=== PATIENT | male | born 1995 | race Caucasian/White ===

== ENCOUNTER 2016-07-29 23:53 | Emergency (ER) | payer BC, OTHER ==
[~2016-07-29] VITALS: Ht 172.7 cm; Wt 89.3 kg
[~2016-07-29 23:53] MED LIST: DEXT5LIQ23 PO; NYQUIL; PSEU120T2
[2016-07-29 23:58] VITALS: TEMP 36.8; Ht 172.7 cm; Wt 89.3 kg
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
[2016-07-30 01:44] VITALS: BP 157/81; PULSE 56; O2SAT 97
[2016-07-30] MEDS ORDERED: PERCOCET HOME PACK PO ONE (01:45)
--- NOTE | 2016-07-30 08:51 | DIAGNOSTIC IMAGING REPORT ---
LEFT HAND 3 VIEWS CLINICAL HISTORY: Left hand pain and swelling, greatest in the fourth finger. FINDINGS: 3 views of left hand are obtained. No prior studies are available for comparison at the time of dictation. The skeletal structures are well mineralized. There is a subtle fracture at the base of the fourth middle phalanx. No additional acute Fracture is seen. Mild irregularity of the fifth metacarpal may be related to remote trauma. Negative ulnar variance is observed. The joint spaces of the hand are preserved. Soft tissue swelling is noted in the fourth finger. IMPRESSION: 1. There is a subtle avulsion fracture at the base of the fourth middle phalanx with overlying soft tissue edema. 2. No additional fracture is seen. Electronically signed by: Art Santiago M.D. 07/30/2016 8:50 AM Dictated Date/Time: 07/30/2016 8:48 AM
== END 2016-07-30 02:02 | disposition home or self-care (01) ==
LOC: C.EDB 23:54
DX: S62.655A Nondisplaced fracture of middle phalanx of left ring finger, initial encounter for closed fracture (principal); V47.5XXA Car driver injured in collision with fixed or stationary object in traffic accident, initial encounter; Z82.49 Family history of ischemic heart disease and other diseases of the circulatory system

== ENCOUNTER 2017-03-19 20:49 | Emergency (ER) | payer SELFPAY ==
[~2017-03-19] VITALS: Ht 170.2 cm; Wt 71.0 kg
[2017-03-19 20:51] VITALS: TEMP 36.6; Ht 170.2 cm; Wt 71.0 kg
[2017-03-19] MEDS ORDERED: LORAZEPAM 1 MG TAB SL STA (21:17)
--- NOTE | 2017-03-19 21:20 | EMERGENCY ROOM VISIT NOTE ---
History Report prepared by Scribe: Coni Hernandez Under the Supervision of: Dr. Darrel Arriaga D.O. First contact with patient: 21:02 Chief Complaint: ANXIETY Stated Complaint: PAIN IN CHEST AND LEFT PALM,ANXIETY ATTACKS History of Present Illness The patient is a 21 year old male who presents to the Emergency Room with complaints of worsening anxiety for the past weeks. He admits to a history of depression. He states he has "asked for help" in the past from his parents, but has never received support from his family. He states he has recently been having thoughts "that I don't want to have" and "they keep poking at me". The patient denies ever being admitted to a hospital for psychiatric reasons in the past. He believes he was treated for ADHD in the past, but states his Mother took him off his ADD medications because "she didn't like how I acted on them". The patient reports he sometimes feels like "there is somebody else" in his body. He admits he has experienced auditory hallucinations in the past. He states yesterday he experienced a panic attack and took a friend's Klonopin tablet, which did provided relief for his anxiety. He denies any alcohol use in the past 24 hours. He denies any recent fevers. 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 A total of 10 systems reviewed and were otherwise negative. Past Medical & Surgical Medical Problems: (1) No Known Active Medical Problems Family History Heart disease Hypertension Social History Smoking Status: Current Some Day Smoker Alcohol Use: none Drug Use: none Marital Status: single Housing Status: lives with roommate Occupation Status: employed, student Current/Historical Medications No Active Prescriptions or Reported Meds Allergies Uncoded Allergies: BANANAS (Allergy, Intermediate, " ITCHY THROAT", 03/19/17) Physical Exam Vital Signs Date Time Temp Pulse Resp B/P (MAP) Pulse Ox O2 Delivery O2 Flow Rate FiO2 03/19/17 23:23 80 20 129/68 97 03/19/17 20:51 36.6 104 18 162/96 100 Room Air Physical Exam GENERAL: Patient is awake, alert, appeared very guarded and anxious. EYES: The conjunctivae are clear. The pupils are dilated and reactive to light bilaterally. EARS, NOSE, MOUTH AND THROAT: The nose is without any evidence of any deformity. Mucous membranes are moist tongue is midline NECK: The neck is nontender and supple. RESPIRATORY: Normal respiratory effort is noted there is no evidence of wheezing rhonchi or rales CARDIOVASCULAR: Heart sounds are tachycardic but regular. No definite murmur noted to auscultation. GASTROINTESTINAL: The abdomen is soft. Bowel sounds are present in all quadrants. Abdomen is nontender MUSCULOSKELETAL/EXTREMITIES: There is no evidence of gross deformity full range of motion is noted in the hips and shoulders SKIN: There is no obvious evidence of any rash. There are no petechiae, pallor or cyanosis noted. NEUROLOGIC: Patient is awake alert and oriented x3 strength is symmetric patellar reflexes are 2+ bilaterally PSYCHIATRIC: Patient was very anxious and guarded appearing. He is currently denying any suicidal ideation. He makes poor eye contact and thought process is tangential. Medical Decision & Procedures Laboratory Results 03/19/17 21:23 Red Blood Count 4.85, Mean Corpuscular Volume 85.2, Mean Corpuscular Hemoglobin 30.5, Mean Corpuscular Hemoglobin Concent 35.8, Mean Platelet Volume 10.6 03/19/17 21:23 Test 03/19/17 21:20 03/19/17 21:23 Urine Color YELLOW Urine Appearance CLEAR (CLEAR) Urine pH 6.5 (4.5-7.5) Urine Specific [place] 1.011 (1.000-1.030) Urine Protein NEG (NEG) Urine Glucose (UA) NEG (NEG) Urine Ketones NEG (NEG) Urine Occult Blood NEG (NEG) Urine Nitrite NEG (NEG) Urine Bilirubin NEG (NEG) Urine Urobilinogen NEG (NEG) Urine Leukocyte Esterase NEG (NEG) Urine Opiates Screen NEG (NEG) Urine Methadone, Qualitative NEG (NEG) Urine Barbiturates NEG (NEG) Urine Phencyclidine (PCP) Level NEG (NEG) Ur Amphetamine/Methamphetamine NEG (NEG) MDMA (Ecstasy) Screen NEG (NEG) Urine Benzodiazepines Screen NEG (NEG) Urine Cocaine Metabolite NEG (NEG) Urine Marijuana (THC) POS (NEG) White Blood Count 10.13 K/uL (4.8-10.8) Red Blood Count 4.85 M/uL (4.7-6.1) Hemoglobin 14.8 g/dL (14.0-18.0) Hematocrit 41.3 % (42-52) Mean Corpuscular Volume 85.2 fL (80-100) Mean Corpuscular Hemoglobin 30.5 pg (25-34) Mean Corpuscular Hemoglobin Concent 35.8 g/dl (32-36) Platelet Count 218 K/uL (130-400) Mean Platelet Volume 10.6 fL (7.4-10.4) RDW Standard Deviation 41.9 fL (36.4-46.3) RDW Coefficient of Variation 13.5 % (11.5-14.5) Neutrophils % (Manual) 39.2 % Lymphocytes % (Manual) 33.6 % Monocytes % (Manual) 3.6 % Eosinophils % (Manual) 0.9 % Basophils % (Manual) 0.9 % (0-2) Neutrophils # (Manual) 3.97 K/uL (1.4-6.5) Total Absolute Neutrophils 3.97 K/uL (1.4-6.5) Lymphocytes # (Manual) 3.40 K/uL (1.2-3.4) Total Absolute Lymphocytes 5.61 K/uL (1.2-3.4) Monocytes # (Manual) 0.36 K/uL (0.11-0.59) Eosinophils # (Manual) 0.09 K/uL (0-0.5) Basophils # (Manual) 0.09 K/uL (0-0.2) Percent Large Granular Lymphocytes 21.8 % Absolute Large Granular Lymphocytes 2.21 K/uL Anion Gap 10.0 mmol/L (3-11) Est Creatinine Clear Calc Drug Dose 107.0 ml/min Estimated GFR () 120.6 Estimated GFR (Non- 104.1 BUN/Creatinine Ratio 13.0 (10-20) Calcium Level 9.5 mg/dl (8.5-10.1) Total Bilirubin 0.4 mg/dl (0.2-1) Direct Bilirubin < 0.1 mg/dl (0-0.2) Aspartate Amino Transf (AST/SGOT) 10 U/L (15-37) Alanine Aminotransferase (ALT/SGPT) 26 U/L (12-78) Alkaline Phosphatase 70 U/L (45-117) Total Protein 8.1 gm/dl (6.4-8.2) Albumin 4.5 gm/dl (3.4-5.0) Thyroid Stimulating Hormone (TSH) 1.400 uIu/ml (0.300-4.500) Ethyl Alcohol mg/dL < 3.0 mg/dl (0-3) Laboratory results per my review. Medications Administered Medications (Trade) Dose Ordered Sig/Braxton Route Start Time Stop Time Status Last Admin Dose Admin Lorazepam (Ativan Tab) 1 mg NOW STAT SL 03/19/17 21:17 03/19/17 21:18 DC 03/19/17 21:32 1 MG ED Course 2107: The patient was evaluated in room A6. A complete history and physical examination were performed. 2116: Ativan 1 mg SL. 2214: I discussed the patients case with the ED Psychiatric Web Software Engineer. She does not believe the patient meets criteria to stay in the hospital. He states he feels safe to go home and does not have any current SI or HI. 0: I reevaluated the patient. I discussed his results and discharge instructions and he verbalized complete understanding and agreement. 2315: Ativan 1 mg 1 homepack PO. Medical Decision Prior records/ancillary studies reviewed. Triage Nursing notes reviewed. The patient's history was concerning for possible psychiatric disturbance. Differential diagnosis: Etiologies such as mood disorder, infection, hypoglycemia, electrolyte abnormalities, cardiac sources, intracerebral event, toxicologic, neurologic, as well as others were entertained. The patient is a 21-year-old male who presented to the emergency department for mental health evaluation. The patient appeared to have very significant anxiety. The patient did not have a history of anxiety but states he's had similar symptoms for approximately 6 months to 1 year. The patient was medically cleared in the emergency department. He did not have any suicidal or homicidal ideation. The patient was medically cleared and was felt to be able to contract for safety. Patient was requesting outpatient follow-up. He was evaluated by the mental health telehealth case manager. Outpatient follow-up was arranged. The patient was encouraged to keep his follow-up appointments. He was also encouraged to call crisis or return to the emergency department immediately if symptoms change worsen or the need arises. Medication Reconcilliation Current Medication List: was personally reviewed by me Blood Pressure Screening Patient's blood pressure: Elevated blood pressure Blood pressure disposition: Elevated BP felt to be situational Impression Primary Impression: Anxiety Scribe Attestation The scribe's documentation has been prepared under my direction and personally reviewed by me in its entirety. I confirm that the note above accurately reflects all work, treatment, procedures, and medical decision making performed by me. Departure Information Dispostion Home / Self-Care Prescriptions No Active Prescriptions or Reported Meds Referrals No Doctor, Assigned (PCP) Patient Instructions Anxiety Body Response, Anxiety Disorder, My [facility] Additional Instructions Follow-up with a therapist as scheduled. Call crisis or return to the emergency department immediately if symptoms change worsen or the need arises. You can try taking the Ativan 1/2 of a tablet as needed for anxiety.
[2017-03-19 21:52] LABS: HEMATOCRIT 41.3 % (42-52); HEMOGLOBIN 14.8 g/dL (14.0-18.0); MEAN CELL VOLUME 85.2 fL (80-100); MEAN CORPUSCULAR HEMOGLOBIN 30.5 pg (25-34); MEAN CORPUSCULAR HGB CONC 35.8 g/dl (32-36); MEAN PLATELET VOLUME 10.6 fL (7.4-10.4); PLATELET COUNT 218 K/uL (130-400); RED CELL DISTRIBUTION WIDTH CV 13.5 % (11.5-14.5); RED CELL DISTRIBUTION WIDTH SD 41.9 fL (36.4-46.3); WHITE BLOOD COUNT 10.13 K/uL (4.8-10.8)
[2017-03-19 22:25] LABS: ALBUMIN 4.5 gm/dl (3.4-5.0); ALKALINE PHOSPHATASE 70 U/L (45-117); ALT/SGPT 26 U/L (12-78); BLOOD UREA NITROGEN 13 mg/dl (7-18); CALCIUM 9.5 mg/dl (8.5-10.1); CARBON DIOXIDE 23 mmol/L (21-32); CREATININE 1.03 mg/dl (0.60-1.40); GLUCOSE 93 mg/dl (70-99); TOTAL PROTEIN 8.1 gm/dl (6.4-8.2)
[2017-03-19 22:28] LABS: POTASSIUM 3.7 mmol/L (3.5-5.1); SODIUM 139 mmol/L (136-145)
[2017-03-19 22:33] LABS: AST/SGOT 10 U/L (15-37)
[2017-03-19] MEDS ORDERED: ATIVAN 1MG HOMEPACK PO ONE (23:15)
[2017-03-19 23:23] VITALS: BP 129/68; PULSE 80; O2SAT 97
== END 2017-03-19 23:24 | disposition home or self-care (01) ==
LOC: C.EDB 20:50 → C.EDA 23:24
DX: F41.9 Anxiety disorder, unspecified (principal); R07.9 Chest pain, unspecified; F17.200 Nicotine dependence, unspecified, uncomplicated

== ENCOUNTER 2017-04-05 22:24 | Inpatient (IN) | payer OTHER ==
[~2017-04-05] VITALS: Ht 170.2 cm; Wt 78.9 kg
[2017-04-05 23:48] LABS: BASO % 0.6 %; BASO ABS # 0.05 K/uL (0-0.2); EOS % 0.7 %; EOS ABS # 0.06 K/uL (0-0.5); HEMATOCRIT 41.2 % (42-52); HEMOGLOBIN 14.8 g/dL (14.0-18.0); IG# 0.02 K/uL (0.00-0.02); LYMPH % 42.5 %; LYMPH ABS # 3.69 K/uL (1.2-3.4); MEAN CELL VOLUME 85.1 fL (80-100); MEAN CORPUSCULAR HEMOGLOBIN 30.6 pg (25-34); MEAN CORPUSCULAR HGB CONC 35.9 g/dl (32-36); MEAN PLATELET VOLUME 9.7 fL (7.4-10.4); MONO % 6.1 %; MONO ABS # 0.53 K/uL (0.11-0.59); NEUT % 49.9 %; NEUT ABS # 4.34 K/uL (1.4-6.5); PLATELET COUNT 231 K/uL (130-400); RED CELL DISTRIBUTION WIDTH CV 13.2 % (11.5-14.5); RED CELL DISTRIBUTION WIDTH SD 40.8 fL (36.4-46.3); WHITE BLOOD COUNT 8.69 K/uL (4.8-10.8)
--- NOTE | 2017-04-06 00:04 | EMERGENCY ROOM VISIT NOTE ---
History Report prepared by Mehul: César Ragland Under the Supervision of: Dr. Veronica George M.D. First contact with patient: 23:10 Chief Complaint: MENTAL HEALTH EVALUATION Stated Complaint: PAIN IN BACK/CHEST AND LEFT THUMB, SHAKING History of Present Illness The patient is a 21 year old male who presents to the Emergency Room for a mental health evaluation due to worsening visual and auditory hallucinations today. The patient states that he has been seeing "a black thing with spiky teeth," and he states that he feels threatened by it. He states that he started seeing this thing at the beginning of the month, and he states that he hears voices, though they are not telling him anything specific. The patient states that he feels "brainwashed by society," and he states that he does not have motivation to do things anymore and feels like he is "analyzing things too much " now. The patient states that he feels worried about everything he does now. He states that in the past he has tried to hurt himself by cutting his hand with a razor blade. Additionally he states that he tried to overdose many years ago, though after seeing his friends pass away he has not had anymore suicidal ideations. He reports that he smokes marijuana, though he does not smoke as much any more since this makes the hallucinations worse. He states that he also took a drug called 4-[id number]-DMT, and this is when all of his symptoms started. The patient additionally notes that he feels like he is shaking and sweating frequently. He feels anxious "all the time." The patient reports that he smoked marijuana earlier today, and this is what "triggered it tonight." Source of History: patient Onset: today Position: other (global) Quality: other (hallucinations) Timing: worsening Note: Associated symptoms: Shaking and sweating Review of Systems See HPI for pertinent positives & negatives. A total of 10 systems reviewed and were otherwise negative. Past Medical & Surgical Medical Problems: (1) Cannabis abuse (2) Depression (3) Hallucinogen abuse (4) No significant medical problems (5) Polysubstance abuse (6) Psychosis Family History Heart disease Hypertension Social History Smoking Status: Current Every Day Smoker Alcohol Use: none Drug Use: none Marital Status: single Housing Status: lives with roommate Occupation Status: employed, student Current/Historical Medications No Active Prescriptions or Reported Meds Allergies Coded Allergies: Banana (Verified Allergy, Intermediate, ITCHY THROAT, 04/06/17) NO KNOWN DRUG ALLERGIES (Verified Allergy, Unknown, none, 04/05/17) Physical Exam Vital Signs Date Time Temp Pulse Resp B/P (MAP) Pulse Ox O2 Delivery O2 Flow Rate FiO2 04/06/17 01:19 36.6 59 20 158/85 99 Room Air 04/05/17 22:57 72 04/05/17 22:27 36.8 101 20 159/109 99 Room Air Physical Exam Vital signs reviewed. General: Well-appearing male, in no significant distress. HEENT: No scleral icterus, pupils are dilated and equal bilaterally, neck supple. Atraumatic. Cardiovascular: Regular rate and rhythm, no extra sounds. Pulmonary: Clear to auscultation bilaterally, normal work of breathing. Abdomen: Soft, nontender, nondistended, positive bowel sounds. Musculoskeletal: Atraumatic, no peripheral edema. Neurologic: Patient awake alert and oriented x 3, full strength in all 4 extremities. Cranial nerves 2 through 12 grossly intact. Skin: Warm, dry, no rash Psych: Anxious appearing. Positive passive SI. Negative HI. Positive auditory and visual hallucinations. Medical Decision & Procedures ER Provider Diagnostic Interpretation: Radiology results as stated below per my review and radiologist interpretation: CT HEAD: No evidence of acute intracranial abnormality. Laboratory Results 04/05/17 23:35 Red Blood Count 4.84, Mean Corpuscular Volume 85.1, Mean Corpuscular Hemoglobin 30.6, Mean Corpuscular Hemoglobin Concent 35.9, Mean Platelet Volume 9.7, Neutrophils (%) (Auto) 49.9, Lymphocytes (%) (Auto) 42.5, Monocytes (%) (Auto) 6.1, Eosinophils (%) (Auto) 0.7, Basophils (%) (Auto) 0.6, Neutrophils # (Auto) 4.34, Lymphocytes # (Auto) 3.69, Monocytes # (Auto) 0.53, Eosinophils # (Auto) 0.06, Basophils # (Auto) 0.05 04/05/17 23:35 Test 04/05/17 22:41 04/05/17 23:35 Urine Color YELLOW Urine Appearance CLEAR (CLEAR) Urine pH 5.0 (4.5-7.5) Urine Specific [place] 1.023 (1.000-1.030) Urine Protein NEG (NEG) Urine Glucose (UA) NEG (NEG) Urine Ketones TRACE (NEG) Urine Occult Blood NEG (NEG) Urine Nitrite NEG (NEG) Urine Bilirubin NEG (NEG) Urine Urobilinogen NEG (NEG) Urine Leukocyte Esterase NEG (NEG) Urine Opiates Screen NEG (NEG) Urine Methadone, Qualitative NEG (NEG) Urine Barbiturates NEG (NEG) Urine Phencyclidine (PCP) Level NEG (NEG) Ur Amphetamine/Methamphetamine NEG (NEG) MDMA (Ecstasy) Screen NEG (NEG) Urine Benzodiazepines Screen NEG (NEG) Urine Cocaine Metabolite NEG (NEG) Urine Marijuana (THC) POS (NEG) White Blood Count 8.69 K/uL (4.8-10.8) Red Blood Count 4.84 M/uL (4.7-6.1) Hemoglobin 14.8 g/dL (14.0-18.0) Hematocrit 41.2 % (42-52) Mean Corpuscular Volume 85.1 fL (80-100) Mean Corpuscular Hemoglobin 30.6 pg (25-34) Mean Corpuscular Hemoglobin Concent 35.9 g/dl (32-36) Platelet Count 231 K/uL (130-400) Mean Platelet Volume 9.7 fL (7.4-10.4) Neutrophils (%) (Auto) 49.9 % Lymphocytes (%) (Auto) 42.5 % Monocytes (%) (Auto) 6.1 % Eosinophils (%) (Auto) 0.7 % Basophils (%) (Auto) 0.6 % Neutrophils # (Auto) 4.34 K/uL (1.4-6.5) Lymphocytes # (Auto) 3.69 K/uL (1.2-3.4) Monocytes # (Auto) 0.53 K/uL (0.11-0.59) Eosinophils # (Auto) 0.06 K/uL (0-0.5) Basophils # (Auto) 0.05 K/uL (0-0.2) RDW Standard Deviation 40.8 fL (36.4-46.3) RDW Coefficient of Variation 13.2 % (11.5-14.5) Immature Granulocyte % (Auto) 0.2 % Immature Granulocyte # (Auto) 0.02 K/uL (0.00-0.02) Anion Gap 8.0 mmol/L (3-11) Est Creatinine Clear Calc Drug Dose 111.3 ml/min Estimated GFR () 126.5 Estimated GFR (Non- 109.2 BUN/Creatinine Ratio 11.3 (10-20) Calcium Level 9.1 mg/dl (8.5-10.1) Total Bilirubin 0.3 mg/dl (0.2-1) Direct Bilirubin < 0.1 mg/dl (0-0.2) Aspartate Amino Transf (AST/SGOT) 12 U/L (15-37) Alanine Aminotransferase (ALT/SGPT) 25 U/L (12-78) Alkaline Phosphatase 69 U/L (45-117) Total Protein 7.9 gm/dl (6.4-8.2) Albumin 4.3 gm/dl (3.4-5.0) Thyroid Stimulating Hormone (TSH) 1.440 uIu/ml (0.300-4.500) Salicylates Level < 1.7 mg/dl (2.8-20) Acetaminophen Level < 2 ug/ml (10-30) Ethyl Alcohol mg/dL < 3.0 mg/dl (0-3) Laboratory results per my review. Medications Administered Medications (Trade) Dose Ordered Sig/Braxton Route Start Time Stop Time Status Last Admin Dose Admin Hydroxyzine HCl (Vistaril Tab) 25 mg NOW STAT PO 04/06/17 00:19 04/06/17 00:20 DC 04/06/17 01:07 25 MG Potassium Chloride (Klor-Con M10) 40 meq NOW STAT PO 04/06/17 00:41 04/06/17 00:42 DC 04/06/17 01:07 40 MEQ Haloperidol (Haldol Tab) 5 mg NOW STAT PO 04/06/17 02:05 04/06/17 02:39 DC 04/06/17 02:30 5 MG ED Course 2310: Past medical records reviewed. The patient was evaluated in room A6. A complete history and physical examination was performed. 0019: Vistaril Tab 25mg PO 0041: Potassium Chloride 40meq PO 0117: The patient is willing to stay. 0205: Haldol 5mg PO 0333: I signed the patient's 201. He will be evaluated further. Medical Decision Differential diagnosis: Etiologies such as mood disorder, infection, hypoglycemia, electrolyte abnormalities, cardiac sources, intracerebral event, toxicologic, neurologic, as well as others were entertained. This patient was evaluated and appeared to be in no distress. Patient was medically cleared. He did require oral Vistaril 25 mg for anxiety. He was given 40 mEq of potassium for repletion. Case was discussed with 3 S. and the patient was accepted for voluntary inpatient treatment. Dr. Stratton has requested Haldol 5 mg by mouth which was administered. Medication Reconcilliation Current Medication List: was personally reviewed by me Blood Pressure Screening Patient's blood pressure: Elevated blood pressure Blood pressure disposition: Elevated BP felt to be situational Impression Primary Impression: Hallucinations Additional Impressions: Mood disorder Suicidal ideation Scribe Attestation The scribe's documentation has been prepared under my direction and personally reviewed by me in its entirety. I confirm that the note above accurately reflects all work, treatment, procedures, and medical decision making performed by me. Departure Information Dispostion Mental Health Acute Care Prescriptions No Active Prescriptions or Reported Meds Referrals No Doctor, Assigned (PCP) Patient Instructions My [facility] Problem Qualifiers
[2017-04-06 00:05] LABS: ALBUMIN 4.3 gm/dl (3.4-5.0); ALT/SGPT 25 U/L (12-78); AST/SGOT 12 U/L (15-37); BLOOD UREA NITROGEN 11 mg/dl (7-18); CALCIUM 9.1 mg/dl (8.5-10.1); CARBON DIOXIDE 24 mmol/L (21-32); CREATININE 0.99 mg/dl (0.60-1.40); GLUCOSE 94 mg/dl (70-99); POTASSIUM 3.3 mmol/L (3.5-5.1); SODIUM 138 mmol/L (136-145)
[2017-04-06 00:16] LABS: ALKALINE PHOSPHATASE 69 U/L (45-117); TOTAL PROTEIN 7.9 gm/dl (6.4-8.2)
[2017-04-06] MEDS ORDERED: hydrOXYzine HCL 25 MG TAB PO STA (00:19)
[2017-04-06] MEDS ORDERED: POTASSIUM CHLORIDE 10 MEQ TABCR PO STA (00:41)
[2017-04-06] MEDS ORDERED: HALOPERIDOL 5 MG TAB PO STA (02:05)
[2017-04-06] MEDS ORDERED: NURSING VERBAL MED ORDER ONE ×2 (03:15→20:30)
[2017-04-06 03:35] VITALS: O2SAT 99
[2017-04-06] MEDS ORDERED: BISMUTH SUBSALICYLATE PER ML OMNICELL CHARGE PO PRN (03:45)
[2017-04-06] MEDS ORDERED: hydrOXYzine HCL 25 MG TAB PO PRN (03:45)
[2017-04-06] MEDS ORDERED: ALUMINUM/MAGNESIUM SUSP 30 ML UDC PO PRN (03:45)
[2017-04-06] MEDS ORDERED: SODIUM CHLORIDE 0.65% NA SOLN 45 ML (OCEAN) PRN (03:45)
[2017-04-06] MEDS ORDERED: MAGNESIUM HYDROXIDE SUSP 30 ML UDC PO PRN (03:45)
[2017-04-06 06:02] VITALS: BP 150/75; PULSE 86; TEMP 36.8; Ht 170.2 cm; Wt 78.9 kg
--- NOTE | 2017-04-06 06:31 | DIAGNOSTIC IMAGING REPORT ---
CT HEAD WITHOUT CONTRAST (CT) CLINICAL HISTORY: Acute change in mental status COMPARISON STUDY: No previous studies for comparison. TECHNIQUE: Axial CT of the brain is performed from the vertex to the skull base. IV contrast was not administered for this examination. A dose lowering technique was utilized adhering to the principles of ALARA. CT DOSE: FINDINGS: No intra or extra-axial mass lesions are visualized. There is no CT evidence of acute cortical infarction. There is no evidence of midline shift. There is no acute hemorrhage. No calvarial fractures are visualized. There is no evidence of pathologic ventricular dilatation. There is no evidence of acute sinusitis IMPRESSION: Normal noncontrast head CT. Electronically signed by: Sathya Gonzalez M.D. 04/06/2017 6:30 AM Dictated Date/Time: 04/06/2017 6:29 AM
[2017-04-06] MEDS ORDERED: INFLUENZA ADMINISTRATION CHARGE ONE (06:45)
[2017-04-06] MEDS ORDERED: INFLUENZA VIRUS QUAD VACCINE 0.5 ML SYR IM. ONE (06:45)
[2017-04-06 07:06] VITALS: BP_SYST 108; BP_SYST 111; BP_DIAS 53; BP_DIAS 61; PULSE 41; PULSE 49; TEMP 36.3
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
[2017-04-06] MEDS ORDERED: SERTRALINE HCL 50 MG TAB PO ONE (12:08)
[2017-04-06] MEDS ORDERED: RISPERIDONE 0.5 MG TAB PO ONE (12:10)
[2017-04-06] MEDS ORDERED: RISPERIDONE 0.5 MG TAB PO PRN (12:15)
[2017-04-06] MEDS: HALOPERIDOL 5 MG TAB PO PRN (13:24)
[2017-04-06] MEDS ORDERED: NICOTINE 21 MG/24 HR TDSY TD SCH (21:00)
[2017-04-06] MEDS: RISPERIDONE 0.5 MG TAB PO SCH (21:16)
[2017-04-06 21:17] VITALS: BP 138/73; PULSE 67; TEMP 37.1
[2017-04-07 06:36] VITALS: BP_SYST 133; BP_SYST 149; BP_DIAS 79; BP_DIAS 84; PULSE 55; PULSE 72; TEMP 36.4
[2017-04-07] MEDS: SERTRALINE HCL 50 MG TAB PO SCH (09:23)
[2017-04-07] MEDS: RISPERIDONE 0.5 MG TAB PO SCH (09:24)
[2017-04-07 09:55] LABS: CALCIUM 9.4 mg/dl (8.5-10.1); CREATININE 1.19 mg/dl (0.60-1.40); POTASSIUM 4.4 mmol/L (3.5-5.1)
[2017-04-07] MEDS ORDERED: RISPERIDONE 0.5 MG TAB PO ONE (10:44)
--- NOTE | 2017-04-07 11:01 | Psychiatric Progress Notes ---
Progress Note Date of Service Apr 07, 2017. Interval History 21 y/o SWM with significant substance abuse, primarily cannabis and psychedelics , who has developed depression and persistent, severe psychosis in the past few months which is distressing and leading to suicidal thoughts and difficulty functioning. He is admitted voluntarily. Chief Complaint "I was getting anxious in there talking about this stuff.". Subjective Patient was seen & assessed interval progress reviewed with Treatment Team. The patient remains anxious today, and easily triggered to hallucinations. He continues to feel like the hallucinations, a mouth with teeth, is "all around me " saying he feels it more than he sees it. He is also struggling to keep his thoughts straight and says that he thinks he has found out "how this world works " as if he has been supplied with special information. He denies overt side effects to meds, but says that he wants to sleep a lot because its the only time he isn't bothered by the hallucinations, describing it as an escape. He feels as if "my reality has changed". We discussed reality testing his thoughts , staying grounded in what's real around him. He recognizes that these experiences are not real and likely brought on by his drug use. He denies aud hallucinations. Review of Systems Constitutional: No fever, No chills, No sweats, No weight loss, No weakness, No fatigue, No problem reported ENT: No hearing loss, No unusual epistaxis, No nasal symptoms, No sore throat, No tinnitus, No dental problems, No trouble swallowing, No problem reported Respiratory: No cough, No sputum, No wheezing, No shortness of breath, No dyspnea on exertion, No dyspnea at rest, No hemoptysis, No problem reported Cardiovascular: No chest pain, No orthopnea, No PND, No edema, No claudication , No palpitations, No problem reported Abdomen: No pain, No nausea, No vomiting, No diarrhea, No constipation, No GI bleeding, No problem reported Musculoskeletal: No joint pain, No muscle pain, No swelling, No calf pain, No problem reported Neurologic: No memory loss, No paralysis, No weakness, No numbness/tingling, No vertigo, No balance problems, No problem reported Psychiatric: + problem reported (visual hallucinations. ) Integumentary: No rash, No itch, No new/changing skin lesions, No color change , No bleeding, No problem reported Sleep Information Total Hours of Sleep: 6.25 Meal Information Percent of Breakfast Consumed: 100 Percent of Lunch Consumed: 100 Percent of Dinner Consumed: 90 Mental Status Exam During interview pt is: alert and oriented, cooperative (but a poor historian due to psychosis and disoragnization) Appearance: appropriately dressed (street clothes), disheveled (malodorous and unkempt) Eye contact is: good Motor behavior is: steady gait & station, no abnormal motor movements Speech: normal in rate, rhythm & volume Affect: blunted Mood is: depressed, anxious, other (fearful) Thought process: tangential, looseness of associations Thought content: paranoid, cognitive distortions, delusions, ideas of reference , other (thought blocking) Suicidal thought are: present Homicidal thoughts are: denied Hallucinations: auditory (thinks he hears people saying his name), visual Cognition: language grossly intact, other (memory and attention impaired ) Intelligence estimated to be: average Insight: impaired Judgement: impaired Impression Remains with visual hallucinations with much distress. Will increase Risperdal to 1 mg BID to help organize thinking and target hallucinations. Will need OP substance use treatment. Plan (1) Psychosis Differential includes substance-induced psychosis, psychotic mood disorder, organic cause, or primary thought disorder. Psychotic symptoms have been persistent for at least a month, but patient is a very poor historian and we will need to get collateral. His symptoms are severe, distressing, and warrant treatment with an antipsychotic. 04/06 - Start risperidone 0.5 mg twice a day for psychosis, and check fasting lipid profile and fasting glucose tomorrow for baseline on an atypical antipsychotic. Reviewed risks, benefits and side effects with patient and he agreed. Provided Up To Date Patient Handout on the medication. - Encourage group attendance and participation, provide reality testing, and educate the patient about his symptoms and diagnosis, and recommendations for treatment. - Schedule family meeting, and arrange aftercare. - Patient endorsed suicidal thoughts on admission, and grandmother indicated concerns about his access to guns. We will recommend he not have access to guns , substances he can abuse, or medications he could overdose on, and this will need to be reviewed in his family meeting as well as his safety plan. - Patient is on [facility] in [facility]. 04/07 - Increase Risperdal to 1 mg. BID - Reality orientation (2) Depression 04/06 - with anxiety. Discussed diagnosis and trial of an SSRI, which he agreed to. Provided an up-to-date patient handout on sertraline, and start 50 mg daily. 04/07 - Continue Zoloft 50 (3) Cannabis abuse 04/06 - hallucinogen/psychoactive substance abuse clearly contributing to psychotic symptoms. Brief intervention was offered and accepted Intervention was greater than 5 min in length. Brief interventions include: 1. Assess Readiness to Quit, 2. Advise: Help Patient to Reduce or Abstain from Alcohol, 3. Agree: Set Specific, Feasible Goals, 4. Assist: Anticipate barriers, Problem-Solving Solutions. Social work to 5. Arrange: Referrals to appropriate treatment. Summary of intervention: The patient is in precontemplation stage with regards to transtheoretical model of change. The patient is advised to decrease alcohol consumption due to depressant effects and risk of interactions with prescription medications. The patient agreed to cut back, and will be provided with recovery materials to continue to education self on how to cope with their condition without drinking. - Will recommend outpatient substance abuse treatment. (4) Hallucinogen abuse 04/06 - see above. (5) Polysubstance abuse Has abused opiates, cocaine, stimulants, etc. Would not recommend he be prescribed controlled substances due to the high risk of abuse/misuse/diversion/ negative outcomes. (6) Hypokalemia 04/06 - potassium was 3.3 on admission yesterday, will order a PRP for tomorrow to recheck. Monitor oral intake, and consider need for further repletion. Discharge / Aftercare Planning Therapist: Name: "I had counselors with a partial place in [place] for bullying" Writer Producer: Name: Doyle Visit Code E&M Code: 09035 Inventory Assets Strengths: Supportive family, has housing, willing for treatment Needs: Substance abuse treatment Risk Factors Assessment Male: Yes : Yes /single/: Yes Higher / Fall in social status: No Health problems: No Mental Health Diagnoses: Yes Substance use disorders: Yes Previous attempt: Yes Previous attempt; didn't tell: Yes Family history of suicide: No Previous psychiatric stay: No Hopelessness: No Smoker: Yes Protective Factors Assessment Mormonism beliefs: Yes : No Responsible for young children: No Employed: No Stable relationships: No Supportive family: Yes Good rapport with provider: No Data Vital Signs Last 24 Hrs: Date Time Temp Pulse Resp B/P (MAP) Pulse Ox O2 Delivery O2 Flow Rate FiO2 04/07/17 06:36 36.4 55 16 133/79 72 149/84 04/06/17 21:17 37.1 67 22 138/73 Meds Administered Last 24 Hrs: Meds Administered (Past 24Hrs) Medications (Trade) Dose Ordered Sig/Braxton Route Start Time Stop Time Status Last Admin Dose Admin Hydroxyzine HCl (Vistaril Tab) 25 mg NOW STAT PO 04/06/17 00:19 04/06/17 00:20 DC 04/06/17 01:07 25 MG Potassium Chloride (Klor-Con M10) 40 meq NOW STAT PO 04/06/17 00:41 04/06/17 00:42 DC 04/06/17 01:07 40 MEQ Haloperidol (Haldol Tab) 5 mg NOW STAT PO 04/06/17 02:05 04/06/17 02:39 DC 04/06/17 02:30 5 MG Haloperidol (Haldol Tab) 5 mg Q6H PRN PO 04/06/17 03:45 05/06/17 03:44 04/06/17 13:24 5 MG Risperidone (Risperdal Tab) 0.5 mg BID PO 04/06/17 22:00 05/06/17 21:59 04/07/17 09:24 0.5 MG Sertraline HCl (Zoloft Tab) 50 mg QAM PO 04/07/17 09:00 05/07/17 08:59 04/07/17 09:23 50 MG Sertraline HCl (Zoloft Tab) 50 mg 1208 ONCE PO 04/06/17 12:08 04/06/17 12:11 DC 04/06/17 12:47 50 MG Risperidone (Risperdal Tab) 0.5 mg 1210 ONCE PO 04/06/17 12:10 04/06/17 12:14 DC 04/06/17 12:47 0.5 MG Nicotine (Nicoderm Cq 21MG Patch) 1 patch Q24H TD 04/06/17 21:00 04/07/17 09:44 DC 04/06/17 20:57 1 PATCH Miscellaneous (Remove Nicoderm Patch) 1 ea Q24H N/A 04/07/17 20:59 04/07/17 20:59 DC 04/07/17 04:50 1 EA Lab Results Last 24 Hrs: Last 24 Hours Test 04/07/17 09:12 Sodium Level 139 mmol/L Potassium Level 4.4 mmol/L Chloride Level 106 mmol/L Carbon Dioxide Level 28 mmol/L Anion Gap 5.0 mmol/L Blood Urea Nitrogen 16 mg/dl Creatinine 1.19 mg/dl Est Creatinine Clear Calc Drug Dose 92.6 ml/min Estimated GFR () 101.3 Estimated GFR (Non- 87.4 BUN/Creatinine Ratio 13.5 Random Glucose 84 mg/dl Fasting Glucose 84 mg/dl Calcium Level 9.4 mg/dl Triglycerides Level 127 mg/dl Cholesterol Level 152 mg/dl HDL Cholesterol 43 mg/dl LDL Cholesterol, Calculated 84 mg/dl VLDL Cholesterol, Calculated 25 mg/dl Cholesterol/HDL Ratio 3.5 Problem Qualifiers (1) Psychosis: Psychosis type: unspecified psychosis type Qualified Codes: F29 - Unspecified psychosis not due to a substance or known physiological condition (2) Depression: Depression Type: major depressive disorder Major depression recurrence: recurrent Active/Remission status: currently active Major depression episode severity: moderate Qualified Codes: F33.1 - Major depressive disorder, recurrent, moderate
[2017-04-07] MEDS: NICOTINE 14 MG/24 HR TDSY TD SCH (11:03)
[2017-04-07] MEDS: ACETAMINOPHEN 325 MG TAB PO PRN (18:39)
[2017-04-07] MEDS: HALOPERIDOL 5 MG TAB PO PRN (19:41)
[2017-04-07] MEDS: RISPERIDONE 1 MG TAB PO SCH (21:26)
[2017-04-08 06:39] VITALS: BP_SYST 136; BP_SYST 147; BP_DIAS 92; BP_DIAS 93; PULSE 120; PULSE 95; TEMP 36.7
[2017-04-08] MEDS: RISPERIDONE 1 MG TAB PO SCH ×2 (08:37→21:07)
[2017-04-08] MEDS: SERTRALINE HCL 50 MG TAB PO SCH (08:37)
[2017-04-08] MEDS: NICOTINE 14 MG/24 HR TDSY TD SCH (08:38)
--- NOTE | 2017-04-08 10:24 | Psych Management Progress Note ---
Psychiatry Miscellaneous Date of Service: Apr 08, 2017. Patient seen, MS assessed. Rates mood as 9.5/10, anxiety improved and better reality orientation. Encouraged cooperation with care and treatment plan as outlined by allied health prescriber.
--- NOTE | 2017-04-08 11:59 | Psychiatric Progress Notes ---
Progress Note Date of Service Apr 08, 2017. Interval History 21 y/o SWM with significant substance abuse, primarily cannabis and psychedelics , who has developed depression and persistent, severe psychosis in the past few months which is distressing and leading to suicidal thoughts and difficulty functioning. He is admitted voluntarily. Chief Complaint "I'm pretty good, actually". Subjective Patient was seen & assessed interval progress reviewed with Treatment Team. Staff reported ongoing auditory, visual, and tactile hallucinations yesterday. Pt rated his mood a /10 at community meeting and described himself as "hopeful ". Per report, patient appears to be responding well to medications, however is sedated following prn dosing of Haldol. Pt was seen today to assess progress since admission. He states he is feeling "pretty good, actually". Pt reports improvement in mood with start of Zoloft and states his thoughts have been more clear and "I feel like I have more control". Pt reports good response to Risperdal and was encouraged to try Risperdal prn rather than the Haldol as it has been causing him sedation. He reports somatic complaints of "shivers of my arm that's coming from my back". He states this sensation predates initiation of Risperdal. He denies auditory hallucinations, but reports "things with texture look like they're moving sometimes". Pt denies SI/ HI, and other psychosis. Review of Systems Psych: denies symptoms other than stated above Constitutional: denied Cardiovascular: denied GI: denied Neurologic: denied Musculoskeletal: reports "back tightness", and "shivering" in left arm Remainder of 10 body systems also reviewed and denied other than noted above. Sleep Information Total Hours of Sleep: 6.75 Meal Information Percent of Breakfast Consumed: 100 Percent of Lunch Consumed: 100 Percent of Dinner Consumed: 100 Mental Status Exam During interview pt is: alert and oriented, cooperative Appearance: appropriately dressed, appropriately groomed Eye contact is: good Motor behavior is: steady gait & station, no abnormal motor movements Speech: normal in rate, rhythm & volume Affect: blunted (but improving) Mood is: other ("pretty good, actually") Thought process: goal directed, clear, coherent Thought content: paranoid, cognitive distortions, delusions, ideas of reference , other (thought blocking) Suicidal thought are: denied Homicidal thoughts are: denied Hallucinations: visual ("anything with texture looks like it's moving") Cognition: attention grossly intact, language grossly intact Intelligence estimated to be: average Insight: limited Judgement: limited Impression Appears to be much improved since admission in regard to clarity of thought. Pt continues to report somatic sensations of his left arm and back. Visual hallucinations, or rather distortions, or reported. Pt tolerating risperidone, somatic complaints likely unrelated as they predate initiation of medications. Pt willing for use of prn risperidone rather than prn haloperidol as sedation has been occurring with current haloperidol use. Agreeable to outpatient treatment for substance abuse. Requires ongoing inpatient mental health treatment as medication adjustments continue to be required and patient remains at risk of decompensation and risk of self-harm if discharged. Plan (1) Psychosis Differential includes substance-induced psychosis, psychotic mood disorder, organic cause, or primary thought disorder. Psychotic symptoms have been persistent for at least a month, but patient is a very poor historian and we will need to get collateral. His symptoms are severe, distressing, and warrant treatment with an antipsychotic. 04/06 - Start risperidone 0.5 mg twice a day for psychosis, and check fasting lipid profile and fasting glucose tomorrow for baseline on an atypical antipsychotic. Reviewed risks, benefits and side effects with patient and he agreed. Provided Up To Date Patient Handout on the medication. - Encourage group attendance and participation, provide reality testing, and educate the patient about his symptoms and diagnosis, and recommendations for treatment. - Schedule family meeting, and arrange aftercare. - Patient endorsed suicidal thoughts on admission, and grandmother indicated concerns about his access to guns. We will recommend he not have access to guns , substances he can abuse, or medications he could overdose on, and this will need to be reviewed in his family meeting as well as his safety plan. - Patient is on [facility] in [facility]. 04/07 - Increase Risperdal to 1 mg. BID - Reality orientation 04/08 - Continue risperidone 1mg BID, encouraged to use risperidone 0.5mg q4h prn rather than haloperidol as it has been causing sedation. - Establish outpatient substance abuse rehab as patient is agreeable. - [facility]care established at [facility]. (2) Depression 04/06 - with anxiety. Discussed diagnosis and trial of an SSRI, which he agreed to. Provided an up-to-date patient handout on sertraline, and start 50 mg daily. 04/07 - Continue Zoloft 50 04/08 - Continue Zoloft 50mg. (3) Cannabis abuse 04/06 - hallucinogen/psychoactive substance abuse clearly contributing to psychotic symptoms. Brief intervention was offered and accepted Intervention was greater than 5 min in length. Brief interventions include: 1. Assess Readiness to Quit, 2. Advise: Help Patient to Reduce or Abstain from Alcohol, 3. Agree: Set Specific, Feasible Goals, 4. Assist: Anticipate barriers, Problem-Solving Solutions. Social work to 5. Arrange: Referrals to appropriate treatment. Summary of intervention: The patient is in precontemplation stage with regards to transtheoretical model of change. The patient is advised to decrease alcohol consumption due to depressant effects and risk of interactions with prescription medications. The patient agreed to cut back, and will be provided with recovery materials to continue to education self on how to cope with their condition without drinking. - Will recommend outpatient substance abuse treatment. (4) Hallucinogen abuse 04/06 - see above. (5) Polysubstance abuse Has abused opiates, cocaine, stimulants, etc. Would not recommend he be prescribed controlled substances due to the high risk of abuse/misuse/diversion/ negative outcomes. (6) Hypokalemia 04/06 - potassium was 3.3 on admission yesterday, will order a PRP for tomorrow to recheck. Monitor oral intake, and consider need for further repletion. Discharge / Aftercare Planning Primary Care Physician: Name: none Therapist: Name: "I had counselors with a partial place in [place] for bullying" Oral Surgery Assistant: Name: Elsi CORBETT Phone Number: [phone] Visit Code E&M Code: 39993 Inventory Assets Strengths: Supportive family, has housing, willing for treatment Needs: Substance abuse treatment Risk Factors Assessment Male: Yes : Yes /single/: Yes Higher / Fall in social status: No Health problems: No Mental Health Diagnoses: Yes Substance use disorders: Yes Previous attempt: Yes Previous attempt; didn't tell: Yes Family history of suicide: No Previous psychiatric stay: No Hopelessness: No Smoker: Yes Protective Factors Assessment Faith beliefs: Yes : No Responsible for young children: No Employed: No Stable relationships: No Supportive family: Yes Good rapport with provider: No Data Vital Signs Last 24 Hrs: Date Time Temp Pulse Resp B/P (MAP) Pulse Ox O2 Delivery O2 Flow Rate FiO2 04/08/17 06:39 36.7 95 18 147/93 120 136/92 Meds Administered Last 24 Hrs: Meds Administered (Past 24Hrs) Medications (Trade) Dose Ordered Sig/Braxton Route Start Time Stop Time Status Last Admin Dose Admin Risperidone (Risperdal Tab) 0.5 mg BID PO 04/06/17 22:00 04/07/17 10:46 DC 04/07/17 09:24 0.5 MG Sertraline HCl (Zoloft Tab) 50 mg QAM PO 04/07/17 09:00 05/07/17 08:59 04/08/17 08:37 50 MG Sertraline HCl (Zoloft Tab) 50 mg 1208 ONCE PO 04/06/17 12:08 04/06/17 12:11 DC 04/06/17 12:47 50 MG Risperidone (Risperdal Tab) 0.5 mg 1210 ONCE PO 04/06/17 12:10 04/06/17 12:14 DC 04/06/17 12:47 0.5 MG Nicotine (Nicoderm Cq 21MG Patch) 1 patch Q24H TD 04/06/17 21:00 04/07/17 09:44 DC 04/06/17 20:57 1 PATCH Miscellaneous (Remove Nicoderm Patch) 1 ea Q24H N/A 04/07/17 20:59 04/07/17 20:59 DC 04/07/17 04:50 1 EA Nicotine (Nicoderm Cq 14MG Patch) 1 patch QAM TD 04/07/17 09:00 05/07/17 08:59 04/08/17 08:38 1 PATCH Risperidone (Risperdal Tab) 1 mg BID PO 04/07/17 22:00 05/07/17 21:59 04/08/17 08:37 1 MG Risperidone (Risperdal Tab) 0.5 mg 1044 ONCE PO 04/07/17 10:44 04/07/17 10:50 DC 04/07/17 11:02 0.5 MG Problem Qualifiers (1) Psychosis: Psychosis type: unspecified psychosis type Qualified Codes: F29 - Unspecified psychosis not due to a substance or known physiological condition (2) Depression: Depression Type: major depressive disorder Major depression recurrence: recurrent Active/Remission status: currently active Major depression episode severity: moderate Qualified Codes: F33.1 - Major depressive disorder, recurrent, moderate
[2017-04-09] MEDS: hydrOXYzine HCL 25 MG TAB PO PRN (01:36)
[2017-04-09 06:59] VITALS: BP_SYST 115; BP_SYST 120; BP_DIAS 73; BP_DIAS 82; PULSE 102; PULSE 64; TEMP 36.5
[2017-04-09] MEDS: RISPERIDONE 1 MG TAB PO SCH ×2 (09:32→21:32)
[2017-04-09] MEDS: SERTRALINE HCL 50 MG TAB PO SCH (09:33)
[2017-04-09] MEDS: NICOTINE 14 MG/24 HR TDSY TD SCH (09:35)
--- NOTE | 2017-04-09 12:30 | Psychiatric Progress Notes ---
Progress Note Date of Service Apr 09, 2017. Interval History 21 y/o SWM with significant substance abuse, primarily cannabis and psychedelics , who has developed depression and persistent, severe psychosis in the past few months which is distressing and leading to suicidal thoughts and difficulty functioning. He is admitted voluntarily. Chief Complaint "Good, I've just been tired". Subjective Patient was seen & assessed interval progress reviewed with Nursing. Staff reports patient appears to be more organized and has rated himself a "9 and happy". Pt is interested in outpatient substance abuse rehab, but will need to have acceptance of MA application verified prior to referrals. Pt was seen today to assess progress since admission. Pt reports he is doing "pretty good" . He has been sleeping most of the morning which he states is due to the altered sleep schedule on the unit. Pt states his mood continues to improve and he is "not really worrying about stuff anymore, which is good". He reports previous anxiety about dying and has noticed that decreasing during his hospitalization. Pt reports visit with his grandmother last evening in which they discussed his hospitalization being a "wake up call" in regard to his substance use and anxieties. He states his grandmother was very supportive and understanding and the conversation was "really good". He reports plan for formal meeting with social work involvement next week. Pt denies SI/HI, A/V hallucinations, and other psychosis at this encounter. He denies other concerns or needs today. Review of Systems Psych: denies symptoms other than stated above Constitutional: denied Cardiovascular: denied GI: denied Neurologic: denied Remainder of 10 body systems also reviewed and denied other than noted above. Sleep Information Total Hours of Sleep: 7.50 Meal Information Percent of Breakfast Consumed: 95 Percent of Lunch Consumed: 95 Percent of Dinner Consumed: 100 Mental Status Exam During interview pt is: alert and oriented, cooperative Appearance: appropriately dressed (in gym shorts and t-shirt), disheveled ( just awakening from sleep) Eye contact is: good Motor behavior is: steady gait & station, no abnormal motor movements Speech: normal in rate, rhythm & volume Affect: blunted (improving) Mood is: other ("pretty good") Thought process: goal directed, clear, coherent Thought content: reality based without delusions Suicidal thought are: denied Homicidal thoughts are: denied Hallucinations: visual (denies today) Cognition: attention grossly intact, language grossly intact Intelligence estimated to be: average Insight: limited Judgement: limited Impression Ongoing improvement in clarity of thought and reduction of A/T hallucinations. Pt reports less anxiety and more organization. He requested Vistaril yesterday as opposed to Haldol which he states worked well. He was encouraged to continue to request Vistaril or Risperdal prn in order to maintain anxiety control without sedation. Improving, but requires ongoing inpatient mental health treatment as medication adjustments continue to be made and patient remains at risk of decompensation and risk of self-harm if discharged. Plan (1) Psychosis Differential includes substance-induced psychosis, psychotic mood disorder, organic cause, or primary thought disorder. Psychotic symptoms have been persistent for at least a month, but patient is a very poor historian and we will need to get collateral. His symptoms are severe, distressing, and warrant treatment with an antipsychotic. 04/06 - Start risperidone 0.5 mg twice a day for psychosis, and check fasting lipid profile and fasting glucose tomorrow for baseline on an atypical antipsychotic. Reviewed risks, benefits and side effects with patient and he agreed. Provided Up To Date Patient Handout on the medication. - Encourage group attendance and participation, provide reality testing, and educate the patient about his symptoms and diagnosis, and recommendations for treatment. - Schedule family meeting, and arrange aftercare. - Patient endorsed suicidal thoughts on admission, and grandmother indicated concerns about his access to guns. We will recommend he not have access to guns , substances he can abuse, or medications he could overdose on, and this will need to be reviewed in his family meeting as well as his safety plan. - Patient is on BRENNEN in [facility]. 04/07 - Increase Risperdal to 1 mg. BID - Reality orientation 04/08 - Continue risperidone 1mg BID, encouraged to use risperidone 0.5mg q4h prn rather than haloperidol as it has been causing sedation. - Establish outpatient substance abuse rehab as patient is agreeable. - [facility]care established at [facility]. 04/09 - Continue current medications. Plan to avoid Haldol prn for anxiety as it has been causing sedation. - Outpatient D&A referrals once MA application has been approved. - Family meeting with grandmother when available (2) Depression 04/06 - with anxiety. Discussed diagnosis and trial of an SSRI, which he agreed to. Provided an up-to-date patient handout on sertraline, and start 50 mg daily. 04/07 - Continue Zoloft 50 04/08 - Continue Zoloft 50mg. 04/09 - Continue Zoloft 50mg (3) Cannabis abuse 04/06 - hallucinogen/psychoactive substance abuse clearly contributing to psychotic symptoms. Brief intervention was offered and accepted Intervention was greater than 5 min in length. Brief interventions include: 1. Assess Readiness to Quit, 2. Advise: Help Patient to Reduce or Abstain from Alcohol, 3. Agree: Set Specific, Feasible Goals, 4. Assist: Anticipate barriers, Problem-Solving Solutions. Social work to 5. Arrange: Referrals to appropriate treatment. Summary of intervention: The patient is in precontemplation stage with regards to transtheoretical model of change. The patient is advised to decrease alcohol consumption due to depressant effects and risk of interactions with prescription medications. The patient agreed to cut back, and will be provided with recovery materials to continue to education self on how to cope with their condition without drinking. - Will recommend outpatient substance abuse treatment. (4) Hallucinogen abuse 04/06 - see above. (5) Polysubstance abuse Has abused opiates, cocaine, stimulants, etc. Would not recommend he be prescribed controlled substances due to the high risk of abuse/misuse/diversion/ negative outcomes. (6) Hypokalemia 04/06 - potassium was 3.3 on admission yesterday, will order a PRP for tomorrow to recheck. Monitor oral intake, and consider need for further repletion. Discharge / Aftercare Planning Primary Care Physician: Name: none Therapist: Name: "I had counselors with a partial place in [place] for bullying" Academic Computing Director: Name: Elsi Ojeda [facility] Phone Number: [phone] Visit Code E&M Code: 11309 Inventory Assets Strengths: Supportive family, has housing, willing for treatment Needs: Substance abuse treatment Risk Factors Assessment Male: Yes : Yes /single/: Yes Higher / Fall in social status: No Health problems: No Mental Health Diagnoses: Yes Substance use disorders: Yes Previous attempt: Yes Previous attempt; didn't tell: Yes Family history of suicide: No Previous psychiatric stay: No Hopelessness: No Smoker: Yes Protective Factors Assessment Religion beliefs: Yes : No Responsible for young children: No Employed: No Stable relationships: No Supportive family: Yes Good rapport with provider: No Data Vital Signs Last 24 Hrs: Date Time Temp Pulse Resp B/P (MAP) Pulse Ox O2 Delivery O2 Flow Rate FiO2 04/09/17 06:59 36.5 64 16 115/73 102 120/82 Meds Administered Last 24 Hrs: Meds Administered (Past 24Hrs) Medications (Trade) Dose Ordered Sig/Braxton Route Start Time Stop Time Status Last Admin Dose Admin Miscellaneous (Remove Nicoderm Patch) 1 ea Q24H N/A 04/07/17 20:59 04/07/17 20:59 DC 04/07/17 04:50 1 EA Miscellaneous (Remove Nicoderm Patch) 1 ea HS N/A 04/07/17 22:00 05/07/17 21:59 04/08/17 21:08 1 EA Risperidone (Risperdal Tab) 1 mg BID PO 04/07/17 22:00 05/07/17 21:59 04/09/17 09:32 1 MG Problem Qualifiers (1) Psychosis: Psychosis type: unspecified psychosis type Qualified Codes: F29 - Unspecified psychosis not due to a substance or known physiological condition (2) Depression: Depression Type: major depressive disorder Major depression recurrence: recurrent Active/Remission status: currently active Major depression episode severity: moderate Qualified Codes: F33.1 - Major depressive disorder, recurrent, moderate
[2017-04-10 06:57] VITALS: BP_SYST 109; BP_SYST 111; BP_DIAS 60; BP_DIAS 69; PULSE 51; PULSE 78; TEMP 36.4
--- NOTE | 2017-04-10 07:03 | Psychiatric Progress Notes ---
Progress Note Date of Service Apr 10, 2017. Interval History 21 y/o SWM with significant substance abuse, primarily cannabis and psychedelics , who has developed depression and persistent, severe psychosis in the past few months which is distressing and leading to suicidal thoughts and difficulty functioning. He is admitted voluntarily. Chief Complaint "I just want to be allowed to sleep". Subjective Patient was seen & assessed interval progress reviewed with Nursing. Staff report he was sleepy during the day, falling asleep in groups, and has been less somatically preoccupied. He has a meeting with his grandmother today at 1pm , and had a good visit with her last evening. Today, the patient had to be awakened for the interview, as he was sleeping in his room. He states that he has been spending most of his time sleeping, as he is very tired, but also admits that this allows him to "not think about things." He is requesting to be allowed to sleep uninterrupted. Agreed that he could rest for the morning, but will need to be up for his meeting with his grandmother at 1 PM, and advised him that at some point he will need to engage in treatment and work on plans for how to eat with the symptoms that brought him into the hospital. He is agreeable to this He has not experienced visual hallucinations since yesterday of the day before, but admits he has been spending a lot of time sleeping. He reports good appetite, and denies thoughts of harming himself or anyone else. Sleep Information Total Hours of Sleep: 6.50 Meal Information Percent of Breakfast Consumed: 95 Percent of Lunch Consumed: 100 Percent of Dinner Consumed: 100 Mental Status Exam During interview pt is: cooperative, other (sleeping, difficult to arouse and engage) Appearance: appropriately dressed, disheveled, other (in bed asleep) Eye contact is: poor Motor behavior is: no abnormal motor movements Speech: other (minimal) Affect: constricted (to sleepy) Mood is: other ("tired") Thought process: goal directed Thought content: reality based without delusions Suicidal thought are: denied Homicidal thoughts are: denied Hallucinations: denies auditory, denies visual Cognition: language grossly intact Intelligence estimated to be: average Insight: limited Judgement: limited Impression Hallucinations are improving, but patient is sleeping excessively so has not been very engaged in treatment. He has a meeting with his grandmother this afternoon. Improving, but requires ongoing inpatient mental health treatment to adjust medication, develop coping strategies and a safety plan with respect to his psychotic symptoms and ongoing substance abuse, family meeting with grandmother, and referral for outpatient services. He risks rapid decompensation and self-harm if discharged prematurely. Plan (1) Psychosis Differential includes substance-induced psychosis, psychotic mood disorder, organic cause, or primary thought disorder. Psychotic symptoms have been persistent for at least a month, but patient is a very poor historian and we will need to get collateral. His symptoms are severe, distressing, and warrant treatment with an antipsychotic. 04/06 - Start risperidone 0.5 mg twice a day for psychosis, and check fasting lipid profile and fasting glucose tomorrow for baseline on an atypical antipsychotic. Reviewed risks, benefits and side effects with patient and he agreed. Provided Up To Date Patient Handout on the medication. - Encourage group attendance and participation, provide reality testing, and educate the patient about his symptoms and diagnosis, and recommendations for treatment. - Schedule family meeting, and arrange aftercare. - Patient endorsed suicidal thoughts on admission, and grandmother indicated concerns about his access to guns. We will recommend he not have access to guns , substances he can abuse, or medications he could overdose on, and this will need to be reviewed in his family meeting as well as his safety plan. - Patient is on BRENNEN in [facility]. 04/07 - Increase Risperdal to 1 mg. BID - Reality orientation 04/08 - Continue risperidone 1mg BID, encouraged to use risperidone 0.5mg q4h prn rather than haloperidol as it has been causing sedation. - Establish outpatient substance abuse rehab as patient is agreeable. - Aftercare established at [facility]. 2 - Continue current medications. Plan to avoid Haldol prn for anxiety as it has been causing sedation. - Outpatient D&A referrals once MA application has been approved. - Family meeting with grandmother when available 04/10 - continue risperidone 1 mg twice a day and hydroxyzine as needed for anxiety due to psychosis. - Family meeting with grandmother today; need to discuss safety issues including securing guns, strategies to abstain from drug abuse, and recommendations for outpatient care. (2) Depression 04/06 - with anxiety. Discussed diagnosis and trial of an SSRI, which he agreed to. Provided an up-to-date patient handout on sertraline, and start 50 mg daily. 04/07 - 04/10 - continue sertraline. (3) Cannabis abuse 04/06 - hallucinogen/psychoactive substance abuse clearly contributing to psychotic symptoms. Brief intervention was offered and accepted Intervention was greater than 5 min in length. Brief interventions include: 1. Assess Readiness to Quit, 2. Advise: Help Patient to Reduce or Abstain from Alcohol, 3. Agree: Set Specific, Feasible Goals, 4. Assist: Anticipate barriers, Problem-Solving Solutions. Social work to 5. Arrange: Referrals to appropriate treatment. Summary of intervention: The patient is in precontemplation stage with regards to transtheoretical model of change. The patient is advised to decrease alcohol consumption due to depressant effects and risk of interactions with prescription medications. The patient agreed to cut back, and will be provided with recovery materials to continue to education self on how to cope with their condition without drinking. - Will recommend outpatient substance abuse treatment. 04/10 - and has applied for medical assistance, and referrals for outpatient treatment can be made once his application is processed. (4) Hallucinogen abuse 04/06 - see above. (5) Polysubstance abuse Has abused opiates, cocaine, stimulants, etc. Would not recommend he be prescribed controlled substances due to the high risk of abuse/misuse/diversion/ negative outcomes. (6) Hypokalemia 04/06 - potassium was 3.3 on admission yesterday, will order a PRP for tomorrow to recheck. Monitor oral intake, and consider need for further repletion. 04/07 - potassium normal at 4.4; eating well. Discharge / Aftercare Planning Primary Care Physician: Name: none Therapist: Name: "I had counselors with a partial place in [place] for bullying" Motor Vehicle Light Assembler: Name: Elsi Ojeda BS Phone Number: [phone] Visit Code E&M Code: 92992 Inventory Assets Strengths: Supportive family, has housing, willing for treatment Needs: Substance abuse treatment Risk Factors Assessment Male: Yes : Yes /single/: Yes Higher / Fall in social status: No Health problems: No Mental Health Diagnoses: Yes Substance use disorders: Yes Previous attempt: Yes Previous attempt; didn't tell: Yes Family history of suicide: No Previous psychiatric stay: No Hopelessness: No Smoker: Yes Protective Factors Assessment Caodaism beliefs: Yes : No Responsible for young children: No Employed: No Stable relationships: No Supportive family: Yes Good rapport with provider: No Data Vital Signs Last 24 Hrs: Date Time Temp Pulse Resp B/P (MAP) Pulse Ox O2 Delivery O2 Flow Rate FiO2 04/10/17 06:57 36.4 51 16 111/60 78 109/69 Problem Qualifiers (1) Psychosis: Psychosis type: unspecified psychosis type Qualified Codes: F29 - Unspecified psychosis not due to a substance or known physiological condition (2) Depression: Depression Type: major depressive disorder Major depression recurrence: recurrent Active/Remission status: currently active Major depression episode severity: moderate Qualified Codes: F33.1 - Major depressive disorder, recurrent, moderate
[2017-04-10] MEDS: NICOTINE 14 MG/24 HR TDSY TD SCH (08:33)
[2017-04-10] MEDS: RISPERIDONE 1 MG TAB PO SCH ×2 (08:33→21:13)
[2017-04-10] MEDS: SERTRALINE HCL 50 MG TAB PO SCH (08:33)
[2017-04-10] MEDS: hydrOXYzine HCL 25 MG TAB PO PRN (22:13)
[2017-04-11 06:55] VITALS: BP_SYST 117; BP_SYST 122; BP_DIAS 69; BP_DIAS 77; PULSE 51; PULSE 90; TEMP 36.8
[2017-04-11] MEDS: RISPERIDONE 1 MG TAB PO SCH ×2 (08:16→21:08)
[2017-04-11] MEDS: SERTRALINE HCL 50 MG TAB PO SCH (08:16)
[2017-04-11] MEDS: NICOTINE 14 MG/24 HR TDSY TD SCH (08:17)
[2017-04-11] MEDS: ACETAMINOPHEN 325 MG TAB PO PRN (10:49)
--- NOTE | 2017-04-11 13:40 | Psychiatric Progress Notes ---
Progress Note Date of Service Apr 11, 2017. Interval History 21 y/o SWM with significant substance abuse, primarily cannabis and psychedelics , who has developed depression and persistent, severe psychosis in the past few months which is distressing and leading to suicidal thoughts and difficulty functioning. He is admitted voluntarily. Chief Complaint "Pretty good. ". Subjective Patient was seen & assessed interval progress reviewed with Treatment Team. The patient says that he is feeling much better, and is without any further hallucinations. He rates his mood 10/10 and describes himself as "excited" about being able to enjoy life without drugs. He feels that he is better equipped to cope with stressors when they come along, rather than reaching for drugs. He has known that he wanted to do this, but now feels that he will have the help of counseling,family and new coping strategies. he talks about learning to ground himself when he gets stressed, using his 5 senses to slow his worried thoughts so that they are not so overwhelming. He is also employing breathing exercises. At baseline, he feels that he probably has ADHD , describing himself as "pretty wired". He is optimistic today that his life can be better, is denying any further thoughts of suicide. He plans to live with his grandparents upon discharge. Review of Systems Constitutional: No fever, No chills, No sweats, No weight loss, No weakness, No fatigue, No problem reported ENT: No hearing loss, No unusual epistaxis, No nasal symptoms, No sore throat, No tinnitus, No dental problems, No trouble swallowing, No problem reported Respiratory: No cough, No sputum, No wheezing, No shortness of breath, No dyspnea on exertion, No dyspnea at rest, No hemoptysis, No problem reported Cardiovascular: No chest pain, No orthopnea, No PND, No edema, No claudication , No palpitations, No problem reported Abdomen: No pain, No nausea, No vomiting, No diarrhea, No constipation, No GI bleeding, No problem reported Musculoskeletal: No joint pain, No muscle pain, No swelling, No calf pain, No problem reported Neurologic: No memory loss, No paralysis, No weakness, No numbness/tingling, No vertigo, No balance problems, No problem reported Psychiatric: + problem reported (racing thoughts) Integumentary: No rash, No itch, No new/changing skin lesions, No color change , No bleeding, No problem reported Sleep Information Total Hours of Sleep: 7.00 Meal Information Percent of Breakfast Consumed: 100 Percent of Lunch Consumed: 100 Percent of Dinner Consumed: 100 Mental Status Exam During interview pt is: cooperative Appearance: appropriately dressed Eye contact is: good Motor behavior is: no abnormal motor movements Speech: normal in rate, rhythm & volume Affect: euthymic Mood is: other ("pretty good") Thought process: goal directed Thought content: reality based without delusions Suicidal thought are: denied Homicidal thoughts are: denied Hallucinations: denies auditory, denies visual Cognition: language grossly intact Intelligence estimated to be: average Insight: limited Judgement: limited Impression More alert today, attentive and going to groups. Mood optimistic that with help he can avoid drugs and move his life forward. MA approved today so will refer to OP therapy. Can reasonably expect DC in the next day or two. Plan (1) Psychosis Differential includes substance-induced psychosis, psychotic mood disorder, organic cause, or primary thought disorder. Psychotic symptoms have been persistent for at least a month, but patient is a very poor historian and we will need to get collateral. His symptoms are severe, distressing, and warrant treatment with an antipsychotic. 04/06 - Start risperidone 0.5 mg twice a day for psychosis, and check fasting lipid profile and fasting glucose tomorrow for baseline on an atypical antipsychotic. Reviewed risks, benefits and side effects with patient and he agreed. Provided Up To Date Patient Handout on the medication. - Encourage group attendance and participation, provide reality testing, and educate the patient about his symptoms and diagnosis, and recommendations for treatment. - Schedule family meeting, and arrange aftercare. - Patient endorsed suicidal thoughts on admission, and grandmother indicated concerns about his access to guns. We will recommend he not have access to guns , substances he can abuse, or medications he could overdose on, and this will need to be reviewed in his family meeting as well as his safety plan. - Patient is on [facility] in [facility]. 04/07 - Increase Risperdal to 1 mg. BID - Reality orientation 04/08 - Continue risperidone 1mg BID, encouraged to use risperidone 0.5mg q4h prn rather than haloperidol as it has been causing sedation. - Establish outpatient substance abuse rehab as patient is agreeable. - [facility]care established at [facility]. 2 - Continue current medications. Plan to avoid Haldol prn for anxiety as it has been causing sedation. - Outpatient D&A referrals once MA application has been approved. - Family meeting with grandmother when available 04/10 - continue risperidone 1 mg twice a day and hydroxyzine as needed for anxiety due to psychosis. - Family meeting with grandmother today; need to discuss safety issues including securing guns, strategies to abstain from drug abuse, and recommendations for outpatient care. 04/11 - Hallucinations resolved, but will maintain Risperdal for now, defer DC to OP - Refer for psychiatry follow up (2) Depression 04/06 - with anxiety. Discussed diagnosis and trial of an SSRI, which he agreed to. Provided an up-to-date patient handout on sertraline, and start 50 mg daily. 04/07 - 04/10 - continue sertraline. (3) Cannabis abuse 04/06 - hallucinogen/psychoactive substance abuse clearly contributing to psychotic symptoms. Brief intervention was offered and accepted Intervention was greater than 5 min in length. Brief interventions include: 1. Assess Readiness to Quit, 2. Advise: Help Patient to Reduce or Abstain from Alcohol, 3. Agree: Set Specific, Feasible Goals, 4. Assist: Anticipate barriers, Problem-Solving Solutions. Social work to 5. Arrange: Referrals to appropriate treatment. Summary of intervention: The patient is in precontemplation stage with regards to transtheoretical model of change. The patient is advised to decrease alcohol consumption due to depressant effects and risk of interactions with prescription medications. The patient agreed to cut back, and will be provided with recovery materials to continue to education self on how to cope with their condition without drinking. - Will recommend outpatient substance abuse treatment. 04/10 - and has applied for medical assistance, and referrals for outpatient treatment can be made once his application is processed. (4) Hallucinogen abuse 04/06 - see above. (5) Polysubstance abuse Has abused opiates, cocaine, stimulants, etc. Would not recommend he be prescribed controlled substances due to the high risk of abuse/misuse/diversion/ negative outcomes. 04/11 - Refer to [facility] for substance use treatment (6) Hypokalemia 04/06 - potassium was 3.3 on admission yesterday, will order a PRP for tomorrow to recheck. Monitor oral intake, and consider need for further repletion. 04/07 - potassium normal at 4.4; eating well. Discharge / Aftercare Planning Primary Care Physician: Name: none Psychiatrist: Name: Pawan Prescott Appointment Notes: Will schedule after intake with therapist Therapist: Name: Pawan Prescott Date of Appointment: Apr 20, 2017 Time of Appointment: 4:30 p.m. Appointment Notes: Intake - [address] [facility] [address], [place] [address] Assistant Dean Of Students: Name: Elsi CORBETT Phone Number: [phone] Visit Code E&M Code: 28518 Inventory Assets Strengths: Supportive family, has housing, willing for treatment Needs: Substance abuse treatment Risk Factors Assessment Male: Yes : Yes /single/: Yes Higher / Fall in social status: No Health problems: No Mental Health Diagnoses: Yes Substance use disorders: Yes Previous attempt: Yes Previous attempt; didn't tell: Yes Family history of suicide: No Previous psychiatric stay: No Hopelessness: No Smoker: Yes Protective Factors Assessment Alevism beliefs: Yes : No Responsible for young children: No Employed: No Stable relationships: No Supportive family: Yes Good rapport with provider: No Data Vital Signs Last 24 Hrs: Date Time Temp Pulse Resp B/P (MAP) Pulse Ox O2 Delivery O2 Flow Rate FiO2 04/11/17 06:55 36.8 51 16 122/69 90 117/77 Meds Administered Last 24 Hrs: Current Inpatient Medications Medications (Trade) Dose Ordered Sig/Braxton Route Start Time Stop Time Status Last Admin Dose Admin Acetaminophen (Tylenol Tab) 650 mg Q4H PRN PO 04/06/17 03:45 05/06/17 03:44 04/11/17 10:49 650 MG Al Hydroxide/Mg Hydroxide (Maalox Susp) 30 ml Q4H PRN PO 04/06/17 03:45 05/06/17 03:44 Bismuth Subsalicylate (Kaopectate Liqd) 15 ml DAILY PRN PO 04/06/17 03:45 05/06/17 03:44 Magnesium Hydroxide (Milk Of Magnesia Susp) 30 ml DAILY PRN PO 04/06/17 03:45 05/06/17 03:44 Sodium Chloride ([place] Nasal [place]) PRN PRN NA 04/06/17 03:45 05/06/17 03:44 Hydroxyzine HCl (Vistaril Tab) 50 mg HSZ PRN PO 04/06/17 03:45 05/06/17 03:44 04/10/17 22:13 50 MG Hydroxyzine HCl (Vistaril Tab) 25 mg Q4H PRN PO 04/06/17 03:45 05/06/17 03:44 04/08/17 14:13 25 MG Haloperidol (Haldol Tab) 5 mg Q6H PRN PO 04/06/17 03:45 05/06/17 03:44 04/07/17 19:41 5 MG Sertraline HCl (Zoloft Tab) 50 mg QAM PO 04/07/17 09:00 05/07/17 08:59 04/11/17 08:16 50 MG Risperidone (Risperdal Tab) 0.5 mg Q4 PRN PO 04/06/17 12:15 05/06/17 12:14 Nicotine (Nicoderm Cq 14MG Patch) 1 patch QAM TD 04/07/17 09:00 05/07/17 08:59 04/11/17 08:17 1 PATCH Miscellaneous (Remove Nicoderm Patch) 1 ea HS N/A 04/07/17 22:00 05/07/17 21:59 04/09/17 21:32 1 EA Risperidone (Risperdal Tab) 1 mg BID PO 04/07/17 22:00 05/07/17 21:59 04/11/17 08:16 1 MG Lab Results Last 24 Hrs: 04/05/17 23:35 Red Blood Count 4.84, Mean Corpuscular Volume 85.1, Mean Corpuscular Hemoglobin 30.6, Mean Corpuscular Hemoglobin Concent 35.9, Mean Platelet Volume 9.7, Neutrophils (%) (Auto) 49.9, Lymphocytes (%) (Auto) 42.5, Monocytes (%) (Auto) 6.1, Eosinophils (%) (Auto) 0.7, Basophils (%) (Auto) 0.6, Neutrophils # (Auto) 4.34, Lymphocytes # (Auto) 3.69, Monocytes # (Auto) 0.53, Eosinophils # (Auto) 0.06, Basophils # (Auto) 0.05 04/07/17 09:12 Test 04/05/17 22:41 04/05/17 23:35 04/07/17 09:12 Urine Color YELLOW Urine Appearance CLEAR (CLEAR) Urine pH 5.0 (4.5-7.5) Urine Specific [place] 1.023 (1.000-1.030) Urine Protein NEG (NEG) Urine Glucose (UA) NEG (NEG) Urine Ketones TRACE (NEG) Urine Occult Blood NEG (NEG) Urine Nitrite NEG (NEG) Urine Bilirubin NEG (NEG) Urine Urobilinogen NEG (NEG) Urine Leukocyte Esterase NEG (NEG) Urine Synthetic Stimulants see note Urine Opiates Screen NEG (NEG) Urine Methadone, Qualitative NEG (NEG) Urine Barbiturates NEG (NEG) Urine Phencyclidine (PCP) Level NEG (NEG) Ur Amphetamine/Methamphetamine NEG (NEG) MDMA (Ecstasy) Screen NEG (NEG) Urine Benzodiazepines Screen NEG (NEG) Urine Cocaine Metabolite NEG (NEG) Cannabinoids Comment see note Urine Synthetic Cannabinoids NEGATIVE (Negative) Ur Synthetic Cannabinoids Confirm (()) Urine Marijuana (THC) POS (NEG) Urine Marijuana (THC Carboxy Acid) 659 NG/ML (CUTOFF=5) White Blood Count 8.69 K/uL (4.8-10.8) Red Blood Count 4.84 M/uL (4.7-6.1) Hemoglobin 14.8 g/dL (14.0-18.0) Hematocrit 41.2 % (42-52) Mean Corpuscular Volume 85.1 fL (80-100) Mean Corpuscular Hemoglobin 30.6 pg (25-34) Mean Corpuscular Hemoglobin Concent 35.9 g/dl (32-36) Platelet Count 231 K/uL (130-400) Mean Platelet Volume 9.7 fL (7.4-10.4) Neutrophils (%) (Auto) 49.9 % Lymphocytes (%) (Auto) 42.5 % Monocytes (%) (Auto) 6.1 % Eosinophils (%) (Auto) 0.7 % Basophils (%) (Auto) 0.6 % Neutrophils # (Auto) 4.34 K/uL (1.4-6.5) Lymphocytes # (Auto) 3.69 K/uL (1.2-3.4) Monocytes # (Auto) 0.53 K/uL (0.11-0.59) Eosinophils # (Auto) 0.06 K/uL (0-0.5) Basophils # (Auto) 0.05 K/uL (0-0.2) RDW Standard Deviation 40.8 fL (36.4-46.3) RDW Coefficient of Variation 13.2 % (11.5-14.5) Immature Granulocyte % (Auto) 0.2 % Immature Granulocyte # (Auto) 0.02 K/uL (0.00-0.02) Total Bilirubin 0.3 mg/dl (0.2-1) Direct Bilirubin < 0.1 mg/dl (0-0.2) Aspartate Amino Transf (AST/SGOT) 12 U/L (15-37) Alanine Aminotransferase (ALT/SGPT) 25 U/L (12-78) Alkaline Phosphatase 69 U/L (45-117) Total Protein 7.9 gm/dl (6.4-8.2) Albumin 4.3 gm/dl (3.4-5.0) Thyroid Stimulating Hormone (TSH) 1.440 uIu/ml (0.300-4.500) Salicylates Level < 1.7 mg/dl (2.8-20) Acetaminophen Level < 2 ug/ml (10-30) Ethyl Alcohol mg/dL < 3.0 mg/dl (0-3) Anion Gap 5.0 mmol/L (3-11) Est Creatinine Clear Calc Drug Dose 92.6 ml/min Estimated GFR () 101.3 Estimated GFR (Non- 87.4 BUN/Creatinine Ratio 13.5 (10-20) Fasting Glucose 84 mg/dl (70-99) Calcium Level 9.4 mg/dl (8.5-10.1) Triglycerides Level 127 mg/dl (0-150) Cholesterol Level 152 mg/dl (0-200) HDL Cholesterol 43 mg/dl LDL Cholesterol, Calculated 84 mg/dl VLDL Cholesterol, Calculated 25 mg/dl Cholesterol/HDL Ratio 3.5 Problem Qualifiers (1) Psychosis: Psychosis type: unspecified psychosis type Qualified Codes: F29 - Unspecified psychosis not due to a substance or known physiological condition (2) Depression: Depression Type: major depressive disorder Major depression recurrence: recurrent Active/Remission status: currently active Major depression episode severity: moderate Qualified Codes: F33.1 - Major depressive disorder, recurrent, moderate
[2017-04-12 07:05] VITALS: BP_SYST 108; BP_SYST 110; BP_DIAS 67; BP_DIAS 69; PULSE 48; PULSE 73; TEMP 36.5
[2017-04-12] MEDS: SERTRALINE HCL 50 MG TAB PO SCH (08:48)
[2017-04-12] MEDS: NICOTINE 14 MG/24 HR TDSY TD SCH (08:48)
[2017-04-12] MEDS: RISPERIDONE 1 MG TAB PO SCH (08:49)
[2017-04-12] MEDS ORDERED: RSP1 PO (09:19)
[2017-04-12] MEDS ORDERED: ZLF50 PO (09:19)
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
== END 2017-04-12 11:22 | disposition home or self-care (01) | DRG 885 ==
LOC: C.EDB 22:25 → C.MHU 04-06 03:14 → CANBEDREQ 04-06 06:58
PROVIDERS: ADMIT Psychiatry & Neurology Child & Adolescent Psychiatry; ATTEND Psychiatry & Neurology Psychiatry
DX: F29 Unspecified psychosis not due to a substance or known physiological condition (principal); F33.1 Major depressive disorder, recurrent, moderate; Z82.49 Family history of ischemic heart disease and other diseases of the circulatory system; F17.200 Nicotine dependence, unspecified, uncomplicated; F12.10 Cannabis abuse, uncomplicated; F28 Other psychotic disorder not due to a substance or known physiological condition; F11.10 Opioid abuse, uncomplicated; F14.10 Cocaine abuse, uncomplicated; F15.10 Other stimulant abuse, uncomplicated; E87.6 Hypokalemia

== ENCOUNTER 2017-07-21 16:52 | Emergency (ER) | payer OTHER ==
[~2017-07-21] VITALS: Ht 172.7 cm; Wt 84.2 kg
[~2017-07-21 16:52] MED LIST changes: -DEXT5LIQ23 PO; -NYQUIL; -PSEU120T2; +RSP1 PO; +ZLF50 PO
[2017-07-21 16:59] VITALS: TEMP 36.9
[2017-07-21] MEDS ORDERED: GABA-112 PO (17:11)
[2017-07-21] MEDS ORDERED: BUSP-8 PO (17:11)
[2017-07-21] MEDS ORDERED: FLUO20CA35 PO (17:11)
[2017-07-21] MEDS ORDERED: METHYLPREDNISOLONE 125 MG VIAL IV STA (17:22)
[2017-07-21] MEDS ORDERED: ALBUT/IPRATROP 3MG/0.5MG NEB 3 ML VIAL INH STA (17:22)
[2017-07-21] MEDS ORDERED: SODIUM CHLORIDE 0.9% 1000ML 1,000 ML IV STA (17:22)
[2017-07-21] MEDS ORDERED: ACETAMINOPHEN 500 MG TAB PO STA (17:22)
[2017-07-21 17:39] VITALS: Ht 172.7 cm; Wt 84.2 kg
[2017-07-21 17:51] LABS: BASO % 0.6 %; BASO ABS # 0.05 K/uL (0-0.2); EOS % 9.7 %; EOS ABS # 0.75 K/uL (0-0.5); HEMATOCRIT 41.8 % (42-52); HEMOGLOBIN 14.9 g/dL (14.0-18.0); IG# 0.01 K/uL (0.00-0.02); LYMPH ABS # 3.26 K/uL (1.2-3.4); MEAN CELL VOLUME 86.9 fL (80-100); MEAN CORPUSCULAR HGB CONC 35.6 g/dl (32-36); MEAN PLATELET VOLUME 9.4 fL (7.4-10.4); MONO % 7.1 %; MONO ABS # 0.55 K/uL (0.11-0.59); NEUT % 40.5 %; NEUT ABS # 3.15 K/uL (1.4-6.5); PLATELET COUNT 218 K/uL (130-400); RED CELL DISTRIBUTION WIDTH CV 12.6 % (11.5-14.5); RED CELL DISTRIBUTION WIDTH SD 40.5 fL (36.4-46.3); WHITE BLOOD COUNT 7.77 K/uL (4.8-10.8)
[2017-07-21 18:15] LABS: CALCIUM 9.7 mg/dl (8.5-10.1); CKMB 1.1 ng/ml (0.5-3.6); CREATININE 1.02 mg/dl (0.60-1.40); POTASSIUM 3.6 mmol/L (3.5-5.1)
--- NOTE | 2017-07-21 18:28 | DIAGNOSTIC IMAGING REPORT ---
TWO VIEW CHEST CLINICAL HISTORY: Dyspnea. FINDINGS: PA and lateral chest radiographs are obtained. No prior studies are available for comparison at the time of dictation. The heart is normal in size. There is abnormal contour of the AP window. The lungs and pleural spaces are clear. There is no pneumothorax. The bony thorax appears intact. There is mild thoracic curvature. IMPRESSION: 1. The lungs are clear. 2. There is abnormal contour along the AP window. Follow-up with a contrast-enhanced CT scan of the chest is recommended to exclude mass lesion. Electronically signed by: Art Santiago M.D. 07/21/2017 6:27 PM Dictated Date/Time: 07/21/2017 6:23 PM
[2017-07-21] MEDS ORDERED: OPTIRAY 320 IV PRN (18:45)
--- NOTE | 2017-07-21 19:16 | DIAGNOSTIC IMAGING REPORT ---
CT ANGIOGRAM OF THE CHEST CLINICAL HISTORY: Cough. Abnormal chest x-ray. COMPARISON STUDY: Chest x-ray dated 07/21/2017. TECHNIQUE: Following the IV administration of 93 cc of Optiray 320, CT angiogram of the chest was performed from the upper abdomen to the thoracic inlet utilizing the pulmonary embolus protocol. Images are reviewed in the axial, sagittal, and coronal planes. 3-D MIPS images are created and assessed. IV contrast was administered without complication. A dose lowering technique was utilized adhering to the principles of ALARA. CT DOSE: 464.67 mGy.cm FINDINGS: Thyroid: Imaged portions of the thyroid gland are normal in size and attenuation. Thoracic aorta: The thoracic aorta is normal in caliber and demonstrates standard 3-vessel arch anatomy. No dissection is seen. Pulmonary vasculature: The pulmonary trunk is markedly dilated, measuring 3.9 cm in transverse diameter. There are no filling defects identified in main, lobar, or segmental pulmonary branches to suggest pulmonary embolus. Heart: The left cardiac chambers appear mildly enlarged. No pericardial effusion is identified. Lungs and pleural spaces: Evaluation of lung parenchyma is modestly degraded by motion artifact. There is no airspace consolidation or pleural effusion. The trachea and central airways are patent. Small cysts are present at the left lung base and measure up to 10 mm. Mediastinum: There is no mediastinal lymphadenopathy. Charley: Clear. Axillae: There is no axillary lymphadenopathy. Upper abdomen: Partially visualized upper abdominal viscera is within normal limits. Skeletal structures: No lytic or blastic bony lesions are seen. There is a mild superior endplate compression deformity of T4. There is mild thoracic scoliosis. IMPRESSION: 1. There is no evidence of pulmonary embolus in the main, lobar, or segmental pulmonary arteries. 2. There is no airspace consolidation or pleural effusion. 3. The radiographic abnormality corresponds to a markedly dilated pulmonary trunk. This suggests pulmonary artery hypertension and follow-up with cardiology is recommended. 4. Mild cardiac enlargement is suggested. 5. Additional findings as above. Electronically signed by: Art Santiago M.D. 07/21/2017 7:14 PM Dictated Date/Time: 07/21/2017 7:09 PM
[2017-07-21] MEDS ORDERED: ALBUTEROL HFA 8 GM INHALER INH ONE (20:00)
[2017-07-21 20:06] VITALS: BP 140/82; PULSE 75; O2SAT 100
--- NOTE | 2017-07-21 21:17 | EMERGENCY ROOM VISIT NOTE ---
ED Visit Note First contact with patient: 17:07 Chief Complaint: Chest congestion. History of Present Illness: Mr. Doran is a 21 year-old white male who ambulates into the ED complaining of chest pain. Historically patient reports history of bronchitis and pneumonia. And reports he stopped smoking approximately 3-4 months ago. Patient reports since stopping smoking 3-4 months ago he has developed chest congestion and an uncontrolled cough. He reports the symptoms have been constant since their onset 3-4 months ago. His cough is minimally productive of a whitish sputum. He has not identified any aggravating or alleviating factors related to the symptoms. He reports he has been using Mucinex, DayQuil and NyQuil and an antibiotic that was his grandfathers and has had no relief of his symptoms. Associated with his symptoms he reports he has been having "cold sweats" and feels he might have been running a fever, sinus congestion, sensations of postnasal drip, intermittent left-sided chest pain with cough that he describes as sharp and severe, intermittent sensations that he is not moving any air in his right hemithorax, lower leg cramping and intermittent posttussive vomiting. Patient denies skin eruptions, skin color changes, wheezing, shortness of breath , hematemesis, orthopnea, dependent edema, previous clots, claudication, recent surgery/inactivity/extended travel, abdominal pain, nausea. Review of Systems: As noted above in history of present illness. All body systems were reviewed and found to be negative as noted above. Past Medical History: As previously noted. Current Medications: Prozac, Neurontin and Buspirone. Allergies to Medications: Patient denies. Social History: Patient is currently employed; he feels safe in his home environment; he denies alcohol and tobacco use. Physical Examination: Vital Signs: Date Time Temp Pulse Resp B/P (MAP) Pulse Ox O2 Delivery O2 Flow Rate FiO2 07/21/17 20:06 75 20 140/82 100 Room Air 07/21/17 16:59 36.9 84 20 149/100 100 Room Air 07/21/17 16:59 100 Room Air GENERAL: 21-year-old male in mild distress due to symptoms, nontoxic-appearing, afebrile and hemodynamically stable. NEUROLOGICAL: Awake, alert and oriented to person, place and time. Answering questions appropriately and following commands. Normal gait. Good hand eye coordination. SKIN: Warm, dry and pink. No soft tissue eruptions or trauma noted. HEENT: Atraumatic and normocephalic. PERRLA. Sclera white and conjunctiva pink. Oral cavity moist and pink. Pharynx is nonerythematous or edematous. Speech normal. No lymphadenopathy. Trachea midline. No jugular venous distention. BACK: No tenderness over the bony spine. No CVA tenderness. THORAX: Lungs sounds are clear to auscultation but decreased bilaterally with more prominence on the left. Symmetrical chest wall movements. No wheezing, rales or rhonchi. No crepitus, tenderness, subcutaneous air or deformities noted. HEART: Regular rate and rhythm. No gallops, rubs or murmurs are appreciated. No lifts, heaves or thrills. PMI is not displaced. ABDOMEN: Flat, soft and nontender. Positive bowel sounds in all quadrants. No guarding, rigidity or organomegaly. EXTREMITIES: Moves all extremities well on command and with purpose. All distal neurovascular statuses are intact and equal bilaterally. No dependent edema or calf tenderness/cords. ED Course: Patient is assessed as noted above. Patient's medication list was reviewed. Laboratory Testing: Test 07/21/17 17:40 07/21/17 17:47 Range/Units White Blood Count 7.77 4.8-10.8 K/uL Red Blood Count 4.81 4.7-6.1 M/uL Hemoglobin 14.9 14.0-18.0 g/dL Hematocrit 41.8 42-52 % Mean Corpuscular Volume 86.9 80-100 fL Mean Corpuscular Hemoglobin 31.0 25-34 pg Mean Corpuscular Hemoglobin Concent 35.6 32-36 g/dl Platelet Count 218 130-400 K/uL Mean Platelet Volume 9.4 7.4-10.4 fL Neutrophils (%) (Auto) 40.5 % Lymphocytes (%) (Auto) 42.0 % Monocytes (%) (Auto) 7.1 % Eosinophils (%) (Auto) 9.7 % Basophils (%) (Auto) 0.6 % Neutrophils # (Auto) 3.15 1.4-6.5 K/uL Lymphocytes # (Auto) 3.26 1.2-3.4 K/uL Monocytes # (Auto) 0.55 0.11-0.59 K/uL Eosinophils # (Auto) 0.75 0-0.5 K/uL Basophils # (Auto) 0.05 0-0.2 K/uL RDW Standard Deviation 40.5 36.4-46.3 fL RDW Coefficient of Variation 12.6 11.5-14.5 % Immature Granulocyte % (Auto) 0.1 % Immature Granulocyte # (Auto) 0.01 0.00-0.02 K/uL Urine Color YELLOW Urine Appearance CLEAR CLEAR Urine pH 7.0 4.5-7.5 Urine Specific [place] 1.014 1.000-1.030 Urine Protein NEG NEG Urine Glucose (UA) NEG NEG Urine Ketones NEG NEG Urine Occult Blood NEG NEG Urine Nitrite NEG NEG Urine Bilirubin NEG NEG Urine Urobilinogen NEG NEG Urine Leukocyte Esterase NEG NEG Sodium Level 140 136-145 mmol/L Potassium Level 3.6 3.5-5.1 mmol/L Chloride Level 109 98-107 mmol/L Carbon Dioxide Level 25 21-32 mmol/L Anion Gap 6.0 3-11 mmol/L Blood Urea Nitrogen 9 7-18 mg/dl Creatinine 1.02 0.60-1.40 mg/dl Est Creatinine Clear Calc Drug Dose 122.1 ml/min Estimated GFR () 122.1 Estimated GFR (Non- 105.3 BUN/Creatinine Ratio 8.6 10-20 Random Glucose 95 70-99 mg/dl Calcium Level 9.7 8.5-10.1 mg/dl Total Creatine Kinase 103 39-308 U/L Creatine Kinase MB 1.1 0.5-3.6 ng/ml Creatine Kinase MB Ratio 1.1 0-3.0 Bedside D-Dimer 112 0-450 ng/mlFEU Bedside Troponin I < 0.030 0-0.045 ng/ml EKG: Read by myself and shows sinus bradycardia with a ventricular rate of 47 bpm. Normal axis, intervals and complexes. Nonspecific ST changes but no changes to indicate ischemia, injury or infarction. This was compared to a previous from March 2017 and no acute changes were noted. Chest X-Rays: Were read by myself and the radiologist showing no acute infiltrates, effusions or pneumothorax. Normal heart silhouette and bony anatomy. Radiologist did note an abnormal contour of the AP window and a mild thoracic curvature. Chest CTA: Was reviewed by myself and read by the radiologist showing no evidence of pulmonary emboli, no airspace consolidation or pleural effusion, radiological abnormality corresponds to a markedly dilated pulmonary trunk suggestive of pulmonary artery hypertension, mild cardiac enlargement. Patient was hydrated with normal saline and he received 1 g of Tylenol by mouth for pain, and albuterol/Atrovent nebulizer breathing treatment and 125 mg of Solu-Medrol IV. Patient was reassessed multiple times during her stay in the emergency department. His first reassessment after his breathing treatment revealed that he had improved air movement in all lung calder[place] and continued to have no wheezing, rales or rhonchi. Patient's case was reviewed with Dr. Hood; we agreed on diagnostic approach , treatment, disposition and plan. Patient's case was consulted with Dr. Russo, cardiology; he recommended that the patient follow-up with his primary care provider and if needed referral to pulmonology; which he thought dilatation was probably related to a respiratory issue, and/or cardiology if needed. Patient was educated about today's findings and instructed on his treatment plan ; he verbalized understanding and agreement with this plan. Clinical Impression: Left-sided chest wall pain. Cough. Pulmonary trunk dilatation. Decision-Making: Initially my differential diagnosis I considered pneumonia, bronchitis, acute coronary syndrome, pulmonary embolism, musculoskeletal disorder and other causes. Disposition: Patient discharged home in stable condition; prior to departure he was reassessed and was subjectively pain and symptom-free. Plan: Patient was encouraged to use 2 puffs of an albuterol inhaler every 6 hours for 5 days and as needed for severe coughing episodes, shortness of breath/wheezing. Patient was encouraged to use ibuprofen or acetaminophen as needed for pain. Patient was encouraged to contact his PCP for follow-up care and treatment and possible referral to pulmonology or cardiology. Patient was encouraged return the ED for worsening symptoms, wheezing, shortness of breath, fevers or any new/concerning symptoms.
== END 2017-07-21 20:07 | disposition home or self-care (01) ==
LOC: C.EDB 16:53 → C.EDD 20:07
DX: R07.89 Other chest pain (principal); R05 Cough; I28.8 Other diseases of pulmonary vessels; Z87.01 Personal history of pneumonia (recurrent); Z87.09 Personal history of other diseases of the respiratory system

== ENCOUNTER 2019-06-22 20:33 | Inpatient (IN) ==
[2019-06-22 21:04] LABS: Appearance Urine Clear (Clear); Bacteria Urine Automated Negative (Negative); Bilirubin Urine Negative (Negative); Blood Urine Negative (Negative); Color Urine Dark Yellow; Epithelial Cell Urine Auto >30 /lpf (0-5); Glucose Urine UA Negative (Negative); Ketones Urine Trace (Negative); Leukocyte Esterase Urine Trace (Negative); Nitrite Urine Negative (Negative); Protein Urine Negative (Negative); RBC Urine Automated 0-4 /hpf (0-4); Urobilinogen Urine Negative (Negative)
--- NOTE | 2019-06-22 21:11 | Emergency Department Note ---
Impression & Plan Anxiety, Depression, Acute hypokalemia, Hypertension ED Provider Note Provider: Eder Albrecht MD DATE OF SERVICE: 06/22/2019 CHIEF COMPLAINT: Anxiety HISTORY OF PRESENT ILLNESS: Patient is a 23-year-old gentleman with a past medical history including marijuana use is, anxiety, depression presenting today reporting that he is in a bad place and quite anxious. Patient states that he has had some transient suicidal thoughts but not a clear plan. Patient states he feels quite depressed and is currently homeless. Patient states he just wishes for some stability. Patient was recently evaluated here on May 28 and had a recent inpatient psychiatric stay at the [facility]. Patient states he was started on several medications there however due to lack of insurance he has not been able to get them since he was discharged approximately a week and a half ago. Patient states that he has been living with a friend but feels he is being taken advantage of. Patient states he continues marijuana and did occasionally take a Xanax tablet from his friend. Patient denies alcohol is sues. Patient denies attempt to harm self. Patient states he has no close family nearby to help. Patient reports he believes he needs inpatient treatment again as his outpatient treatments fallen apart. He has not been able to get his outpatient meds refilled and thus has not been on them for a week and a half. REVIEW OF SYSTEMS: A total of 10 review of systems was obtained and negative except as stated above in the HPI. PAST MEDICAL HISTORY: As noted above MEDICATIONS: Denies currently being on prescription medications due to insurance issues SOCIAL HISTORY: Smoker, marijuana use, prior alcohol use but denies current PHYSICAL EXAM: GENERAL: alert and oriented sitting on the stretcher appears mildly anxious Head: normocephalic and atraumatic EYES: No injection, discharge or icterus. NECK: Trachea midline. Supple. ENT: Mucous membranes pink and moist. LUNGS: Airway patent. No retractions. SKIN: Acyanotic, warm, dry, without rashes NEUROLOGICAL: No focal deficits. No aphasia. No facial droop or slurred speech. Psych: States some transient suicidal thoughts but no clear plan. Endorses depression anxiety. Animated but non-tangential. No HI reported. Patient's hypertension was referred to his PCP HOSPITAL COURSE: 2051 Patient was first seen and H&P performed. 10 discussed with [facility] operations representative. Medications ordered. Signed to my colleague pending improved blood pressure and formal acceptance to [facility] [address] Hargrove awaiting improved BP and 201 for [facility] Patient's laboratory studies were reviewed Differential includes Mood disorder, infection, hypoglycemia, electrolyte abnormalities, cardiac sources, intracerebral event, toxicologic, trauma, neurologic, as well as other pathologies. IMPRESSION/MEDICAL DECISION MAKING: Patient presents complaining of anxiety and depression issues with some suicidal thoughts but no clear plan. Medical clearance was completed. Not currently on medications due to insurance issues in the outpatient setting after recent patient psychiatric stay. Seen in conjunction with the psychiatric case renetta adams. Medical clearance completed here without significant findings. Do note a positive THC with the patient admits to using. Psychiatric social work case manager assisted with evaluation. As the patient describes he was recently discharged from the [facility]. Evidently he did not follow-up with phone resources and establish with the [facility] clinical laboratory medical director and outpatient psychiatric resources this past Tuesday. She did not elicit any additional acute plans of self-harm. All the patient endorses anxiety depression and feeling that things could worsen and is very worried about this. He is requesting inpatient psychiatric services. We will make referrals. Referral to [facility] was made. They did request the patient some potassium supplementation there is a mild hypokalemia and also that we work to try to address his elevated blood pressure. Patient was discharged on clonidine a week and a half ago but has been off of this medicine. Mildly bradycardic here. As he has previously been on this did give a low-dose of clonidine here initially to work towards blood pressure control (may possibly have some mild rebound HTN from this). Signed to my colleague pending improved blood pressure and formal acceptance by [facility] of further inpatient psychiatric care on a 201. DIAGNOSIS: Anxiety, depression, hypokalemia, hypertension DISPOSITION: Signed out pending psychiatric inpatient care. Past Med/Surg History Social History Preferred Language: Mongolian Feels Safe at Home: No Smoking Status: Current every day smoker Tobacco Type: e-cigarettes ; Hx Alcohol Use: Yes Allergies Allergies Allergy/AdvReac Type Severity Reaction Status Date / Time No Known Drug Allergies Allergy Unknown none Verified 06/22/19 21:28 Home Meds Home Medications Medication Instructions Recorded Confirmed No Known Home Medications 05/29/19 06/22/19 Results & Data (ED) Vital Signs Vital Signs - 24 hr 06/22/19 20:36 06/22/19 23:56 Temperature 37.1 C Temperature Source Oral Pulse Rate 79 Pulse Rate [Finger] 53 L Respiratory Rate 18 18 Respiratory Effort / Characteristics Non-Labored Spontaneous Respiratory Depth Normal Respiratory Pattern Regular Blood Pressure 196/111 H Blood Pressure [Right Arm] 162/105 H Blood Pressure Mean 139 Blood Pressure Mean [Right Arm] 124 Blood Pressure Position Sitting Pulse Oximetry 97 Oxygen Delivery Method Room Air Sepsis Recent Fever Within 48 Hours No Sepsis New/Unexplained Change in Mental Status No Sepsis Action Taken by Nursing No Action Required Laboratory Data Result diagrams: 06/22/19 21:27 06/22/19 21:27 Lab Results 06/22/19 06/22/19 06/22/19 Range/Units 20:51 20:51 21:27 WBC (4.8-10.8) K/uL RBC (4.7-6.1) M/uL Hgb (14.0-18.0) g/dL Hct (42-52) % MCV (80-100) fL MCH (25-34) pg MCHC (32-36) g/dL RDW Std Deviation (36.4-46.3) fL RDW Coeff of Raad (11.5-14.5) % Plt Count (130-400) K/uL MPV (7.4-10.4) fL Immature Gran % (Auto) % Neut % (Auto) % Lymph % (Auto) % [place] % (Auto) % Eos % (Auto) % Baso % (Auto) % Immature Gran # (Auto) (0.00-0.02) K/uL Neut # (Auto) (1.4-6.5) K/uL Lymph # (Auto) (1.2-3.4) K/uL [place] # (Auto) (0.11-0.59) K/uL Eos # (Auto) (0-0.5) K/uL Baso # (Auto) (0-0.2) K/uL Sodium 140 (136-145) mmol/L Potassium 3.3 L (3.5-5.1) mmol/L Chloride 110 H (98-107) mmol/L Carbon Dioxide 25 (21-32) mmol/L Anion Gap 6.0 (3-11) BUN 12 (7-18) mg/dl Creatinine 1.12 (0.6-1.4) mg/dl Est Cr Clr Drug Dosing 117.2 ml/min Est GFR ( Amer) 107.5 Est GFR (Non-Af Amer) 92.7 BUN/Creatinine Ratio 10.4 (10-20) Glucose 132 H (70-99) mg/dl Calcium 9.4 (8.5-10.1) mg/dl Total Bilirubin 0.3 (0.2-1) mg/dl AST 8 L (15-37) U/L ALT 20 (12-78) U/L Alkaline Phosphatase 81 (45-117) U/L Total Protein 7.7 (6.4-8.2) gm/dl Albumin 4.3 (3.4-5.0) gm/dl Globulin 3.4 (2.5-4.0) gm/dl Albumin/Globulin Ratio 1.3 (0.9-2) TSH 0.495 (0.300-4.500) uIu/ml Urine Color Dark Yellow Urine Appearance Clear (Clear) Urine pH 7.0 (4.5-7.5) Ur Specific [place] 1.030 (1.000-1.030) Urine Protein Negative (Negative) Urine Glucose (UA) Negative (Negative) Urine Ketones Trace H (Negative) Urine Blood Negative (Negative) Urine Nitrite Negative (Negative) Urine Bilirubin Negative (Negative) Urine Urobilinogen Negative (Negative) Ur Leukocyte Esterase Trace H (Negative) Urine WBC (Auto) 5-10 H (0-5) /hpf Urine RBC (Auto) 0-4 (0-4) /hpf U Hyaline Cast (Auto) 5-10 H (0-5) /lpf U Epithel Cells (Auto) >30 H (0-5) /lpf Urine Bacteria (Auto) Negative (Negative) Salicylates (2.8-20) mg/dl Urine Opiates Screen Neg (Neg) Ur Methadone, Qual Neg (Neg) Acetaminophen (10-30) ug/ml Urine Barbiturates Neg (Neg) Ur Phencyclidine (PCP) Neg (Neg) U Amphetamin/Meth Scrn Neg (Neg) MDMA (Ecstasy) Screen Neg (Neg) U Benzodiazepines Scrn Neg (Neg) Ur Cocaine Metabolite Neg (Neg) U Marijuana (THC) Screen Pos H (Neg) Ethyl Alcohol mg/dL (0-3) mg/dl 06/22/19 06/22/19 06/22/19 Range/Units 21:27 21:27 21:27 WBC 9.24 (4.8-10.8) K/uL RBC 4.87 (4.7-6.1) M/uL Hgb 14.5 (14.0-18.0) g/dL Hct 42.1 (42-52) % MCV 86.4 (80-100) fL MCH 29.8 (25-34) pg MCHC 34.4 (32-36) g/dL RDW Std Deviation 40.8 (36.4-46.3) fL RDW Coeff of Raad 12.9 (11.5-14.5) % Plt Count 297 (130-400) K/uL MPV 10.0 (7.4-10.4) fL Immature Gran % (Auto) 0.2 % Neut % (Auto) 58.2 % Lymph % (Auto) 33.7 % [place] % (Auto) 6.9 % Eos % (Auto) 0.6 % Baso % (Auto) 0.4 % Immature Gran # (Auto) 0.02 (0.00-0.02) K/uL Neut # (Auto) 5.37 (1.4-6.5) K/uL Lymph # (Auto) 3.11 (1.2-3.4) K/uL [place] # (Auto) 0.64 H (0.11-0.59) K/uL Eos # (Auto) 0.06 (0-0.5) K/uL Baso # (Auto) 0.04 (0-0.2) K/uL Sodium (136-145) mmol/L Potassium (3.5-5.1) mmol/L Chloride (98-107) mmol/L Carbon Dioxide (21-32) mmol/L Anion Gap (3-11) BUN (7-18) mg/dl Creatinine (0.6-1.4) mg/dl Est Cr Clr Drug Dosing ml/min Est GFR ( Amer) Est GFR (Non-Af Amer) BUN/Creatinine Ratio (10-20) Glucose (70-99) mg/dl Calcium (8.5-10.1) mg/dl Total Bilirubin (0.2-1) mg/dl AST (15-37) U/L ALT (12-78) U/L Alkaline Phosphatase (45-117) U/L Total Protein (6.4-8.2) gm/dl Albumin (3.4-5.0) gm/dl Globulin (2.5-4.0) gm/dl Albumin/Globulin Ratio (0.9-2) TSH (0.300-4.500) uIu/ml Urine Color Urine Appearance (Clear) Urine pH (4.5-7.5) Ur Specific [place] (1.000-1.030) Urine Protein (Negative) Urine Glucose (UA) (Negative) Urine Ketones (Negative) Urine Blood (Negative) Urine Nitrite (Negative) Urine Bilirubin (Negative) Urine Urobilinogen (Negative) Ur Leukocyte Esterase (Negative) Urine WBC (Auto) (0-5) /hpf Urine RBC (Auto) (0-4) /hpf U Hyaline Cast (Auto) (0-5) /lpf U Epithel Cells (Auto) (0-5) /lpf Urine Bacteria (Auto) (Negative) Salicylates 1.8 L (2.8-20) mg/dl Urine Opiates Screen (Neg) Ur Methadone, Qual (Neg) Acetaminophen < 2 L (10-30) ug/ml Urine Barbiturates (Neg) Ur Phencyclidine (PCP) (Neg) U Amphetamin/Meth Scrn (Neg) MDMA (Ecstasy) Screen (Neg) U Benzodiazepines Scrn (Neg) Ur Cocaine Metabolite (Neg) U Marijuana (THC) Screen (Neg) Ethyl Alcohol mg/dL < 3.0 (0-3) mg/dl Discharge Plan Visit Data Chief Complaint: Mental Health Evaluation Stated Complaint: ANXIETY ED Provider: Eder Albrecht Discharge Problem: Anxiety, Depression, Acute hypokalemia, Hypertension Forms Stand Alone Forms: [facility] Knowable, Suicide Prevention Resources Prescriptions Prescriptions: No Action No Known Home Medications RF: 0 Discharge Problem: Depression Qualifiers: Depression Type: major depressive disorder Major depression recurrence: recurrent Active/Remission status: currently active Major depression episode severity: severe Psychotic features: without psychotic features Qualified Code(s): F33.2 - Major depressive disorder, recurrent severe without psychotic features Hypertension Qualifiers: Hypertension type: unspecified Qualified Code(s): I10 - Essential (primary) hypertension
[2019-06-22 21:34] LABS: Amphetamines+Metham, Urine Neg (Neg); Barbiturates, Urine Neg (Neg); Benzodiazepine, Urine Neg (Neg); Cocaine, Urine Neg (Neg); MDMA (Ecstacy), Urine Neg (Neg); Methadone, Urine Neg (Neg); Opiate, Urine Neg (Neg); Phencyclidine, Urine Neg (Neg)
[2019-06-22 21:50] LABS: Basophils # (auto) 0.04 K/uL (0-0.2); Basophils % (auto) 0.4 %; Eosinophils # (auto) 0.06 K/uL (0-0.5); Eosinophils % (auto) 0.6 %; Hematocrit (blood only) 42.1 % (42-52); Hemoglobin 14.5 g/dL (14.0-18.0); Immature Granulocytes # (auto) 0.02 K/uL (0.00-0.02); Immature Granulocytes % (auto) 0.2 %; Lymphocytes # (auto) 3.11 K/uL (1.2-3.4); Lymphocytes % (auto) 33.7 %; Mean Corpuscular Hemoglobin 29.8 pg (25-34); Mean Corpuscular Hgb Conc 34.4 g/dL (32-36); Mean Corpuscular Volume 86.4 fL (80-100); Monocytes # (auto) 0.64 K/uL (0.11-0.59); Monocytes % (auto) 6.9 %; Neutrophils # (auto) 5.37 K/uL (1.4-6.5); Neutrophils % (auto) 58.2 %; Platelet Count 297 K/uL (130-400); RDW Coefficient of Variation 12.9 % (11.5-14.5); RDW Standard Deviation 40.8 fL (36.4-46.3); Red Blood Count 4.87 M/uL (4.7-6.1); White Blood Count 9.24 K/uL (4.8-10.8)
[2019-06-22 22:10] LABS: Albumin Level 4.3 gm/dl (3.4-5.0); BUN Creatinine Ratio 10.4 (10-20); Calcium 9.4 mg/dl (8.5-10.1); Creatinine Clr Calc Pharmacy 117.2 ml/min; Est GFR (African American) 107.5; Est GFR (Non-African American) 92.7; Potassium 3.3 mmol/L (3.5-5.1)
[2019-06-22 22:11] LABS: Acetaminophen < 2 ug/ml (10-30)
[2019-06-22 22:12] LABS: Salicylate 1.8 mg/dl (2.8-20)
[2019-06-22 22:20] LABS: Albumin Globulin Ratio 1.3 (0.9-2); Bilirubin,Total 0.3 mg/dl (0.2-1); Globulin 3.4 gm/dl (2.5-4.0); Thyroid Stimulating Hormone 0.495 uIu/ml (0.300-4.500); Total Protein 7.7 gm/dl (6.4-8.2)
[2019-06-23] MEDS ORDERED: cloNIDine HCL 0.1 MG TAB PO ONE ×2 (00:07→00:09)
[2019-06-23] MEDS ORDERED: POTASSIUM CHLORIDE 20 MEQ TABCR PO STA (00:08)
--- NOTE | 2019-06-23 01:44 | Emergency Department Note ---
ED Visit Note ED Physician Sign Out Note: 23 yr old male with depression and vague suicidal ideation arrived earlier in day for mental health evaluation. Initially evaluated and medically cleared by Dr Albrecht and was being evaluated by Edith Bassett. Of note, BP trending down with clonidine and he was accepted to [facility] on a 201 basis. Mamadou Hargrove MD : Depression Qualifiers: Depression Type: major depressive disorder Major depression recurrence: recurrent Active/Remission status: currently active Major depression episode severity: severe Psychotic features: without psychotic features Qualified Code(s): F33.2 - Major depressive disorder, recurrent severe without psychotic features Hypertension Qualifiers: Hypertension type: unspecified Qualified Code(s): I10 - Essential (primary) hypertension
[2019-06-23] MEDS ORDERED: MAGNESIUM HYDROXIDE SUSP 30 ML UDC PO PRN (02:01)
[2019-06-23] MEDS ORDERED: SODIUM CHLORIDE 0.65% NA SOLN 45 ML (OCEAN) PRN (02:01)
[2019-06-23] MEDS ORDERED: ACETAMINOPHEN 325 MG TAB PO PRN (02:01)
[2019-06-23] MEDS ORDERED: ALUMINUM/MAGNESIUM SUSP 30 ML UDC PO PRN (02:01)
[2019-06-23] MEDS ORDERED: BISMUTH SUBSALICYLATE PER ML OMNICELL CHARGE PO PRN (02:01)
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
[2019-06-23] MEDS: OXcarbazepine 150 MG TABLET PO SCH (21:03)
[2019-06-23] MEDS: cloNIDine HCL 0.1 MG TAB PO SCH (21:03)
[2019-06-23] MEDS: risperiDONE 0.5 MG TABLET PO SCH (21:04)
[2019-06-24] MEDS: OXcarbazepine 150 MG TABLET PO SCH ×2 (08:54→21:13)
--- NOTE | 2019-06-24 11:27 | Psychiatric Progress Note ---
Date of Service June 24, 2019 Impression / Recommendations Impression 23 yo male with a history of impulsive suicide attempts in his teens, sporadic substance use (none currently), at least 1 episode of drug induced psychosis during a mixed episode, presents with SI in the context of unemployment and homelessness. He has zero social supports and was recently hospitalized at the [facility] for similar and non-compliant with his medication regimen. Looking at course of symptoms over several years and ongoing mood lability outside of substance use suggests bipolar disorder. Cannot exclude co-morbid personality disorder. Certainly ADHD cannot be definitively ruled out without testing. (1) Bipolar affect, depressed: 06/23--The patient was admitted to the [facility] ([facility] unit) on q15 min checks (behavioral with suicide precautions) for safety. The patient will participate in group, recreational, and milieu therapies and will be offered additional individual and family sessions as clinically appropriate. Risks/benefits/alternatives reviewed re: restart of Trileptal, clonidine, and Risperdal. Discussion included but was not limited to need for monitoring for TD and metabolic abnormalities. Metabolic labs likely available per [facility] records. Will start 300 mg Trileptal tonight with plan for BID tomorrow, confirm dosing with [facility] d/c summary. Risperdal 0.5 mg this has and hold parameters for clonidine. 06/24-- BP improved, continue clonidine hs only as dose help sleep by his report. Reviewed my concerns re: longer term risks of Risperdal given gynecomastia at baseline and off label use of Trileptal. Reviewed that I would suggest titrating from 0.5 mg last hs but holding dose at 1 mg Risperdal and focussing on further Trileptal titration if needed. His reports of symptoms vary somewhat from yeste rday, seems a little restless at baseline and perhaps bordering on racing thoughts. note that LDL 158 chol 235, trigly 182 on [facility] d/c paperwork, staff to request records. tox screen reportedly positive for benzos and MJ there, aparently he stated he may have taken a friends Xanax prior to admission there. Risk Factors Assessment Do You Have Access To A Gun?: No Protective Factors Assessment Employed: No Interval History Chief Complaint "My thoughts are all over the place constantly, like everything happening at once". Review of Systems Sleep Information Total Hours of Sleep: 7.25 Meal Information Percent Meal Consumed - Breakfast: 100 Percent Meal Consumed - Lunch: 100 Percent Meal Consumed - Dinner: 100 Subjective Subjective Patient was seen & assessed and interval progress reviewed with nursing and social work. Confirmed med dosing from [facility] (Risperdal 2 mg daily, clonidine bid, Trileptal as ordered). Follow up was to be in [place] area then patient also mentions [place] which is a totally different critical access hospital. States he has hard time focussing in rounds this am and again mentioned clarifying potential ADHD dx then contradicted self with saying did not have attention issues in high school. Reviewed limitations of testing during a pandemic and also MA status cannot be confirmed. Made SW aware. Slept most of day yesterday but attended group this am, states he only slept "8 hours total" in the 3-4 days leading up to this hospitalization. Physical Exam Psychiatric Orientation: alert and oriented x 3 Apperance: appropriately groomed Eye Contact: + fair eye contact Motor Behavior: no abnormal motor movements Speech: normal rate/rhythm/volume of speech Affect: + depressed affect Mood: + depressed mood Thought Process: clear/coherent thought process Thought Content: reality based without delusions suicidal thoughts "about my life in general", no plan on unit Homicidal Thoughts: denies homicidal thoughts Hallucinations: no auditory hallucinations and no visual hallucinations Cognition: attention grossly intact and language grossly intact Estimated Intelligence: consistent with education level Insight: + limited insight Judgement: + limited judgement Vital Signs (Past 24 Hours) Last Vital Signs Temp 36.8 C 06/24/19 06:57 Pulse 68 06/24/19 06:59 Resp 16 06/24/19 06:57 BP 128/84 06/24/19 06:59 Pulse Ox 99 06/23/19 02:05 Results & Data ([facility]) Current Inpatient Medications Current Inpatient Medications: Current Inpatient Medications Acetaminophen (Tylenol) 650 mg PO Q4H PRN PRN Reason: Headache or Minor Fever Stop: 07/23/19 02:00 Al Hydrox/Mg Hydrox/Simethicone (Maalox) 30 ml PO Q4H PRN PRN Reason: GI Upset Stop: 07/23/19 02:00 Bismuth Subsalicylate (Kaopectate) 15 ml PO PRN PRN PRN Reason: Loose Stool Stop: 07/23/19 02:00 Clonidine HCl (Catapres) 0.1 mg PO HS MARLENI Stop: 07/23/19 21:59 Last Admin: 06/23/19 21:03 Dose: 0.1 mg Documented by: Hydroxyzine HCl (Vistaril) 50 mg PO HSZ PRN PRN Reason: Insomnia Stop: 07/23/19 02:00 Hydroxyzine HCl (Vistaril) 25 mg PO Q4H PRN PRN Reason: Anxiety Stop: 07/23/19 02:00 Magnesium Hydroxide (Milk Of Magnesia) 30 ml PO DAILY PRN PRN Reason: Constipation Stop: 07/23/19 02:00 Oxcarbazepine (Trileptal) 300 mg PO BID MARLENI Stop: 07/23/19 20:59 Last Admin: 06/24/19 08:54 Dose: 300 mg Documented by: Risperidone (Risperdal) 0.5 mg PO HS MARLENI Stop: 07/23/19 21:59 Last Admin: 06/23/19 21:04 Dose: 0.5 mg Documented by: Sodium Chloride ([place] Nasal) 1 - 2 sprays NA PRN PRN PRN Reason: Nasal Dryness/Congestion Stop: 07/23/19 02:00 Mental Health & Subst Abuse Tx Therapist Name of Therapist: None Biomechanical Engineer Name of Biomechanical Engineer: Intake with [facility] 06/17 (did not complete) Post Discharge Appointments Primary Care Physician Name Of Family Doctor: None
[2019-06-24 14:55] LABS: Marijuana Quant, GCMS Urine 220 ng/mL (<5)
[2019-06-24] MEDS: risperiDONE 0.5 MG TABLET PO SCH (21:13)
[2019-06-24] MEDS: cloNIDine HCL 0.1 MG TAB PO SCH (21:13)
[2019-06-25] MEDS: OXcarbazepine 150 MG TABLET PO SCH ×2 (08:31→21:06)
--- NOTE | 2019-06-25 13:40 | Psychiatric Progress Note ---
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 He has zero social supports and was recently hospitalized at the [facility] for similar and non-compliant with his medication regimen. Looking at course of symptoms over several years and ongoing mood lability outside of substance use suggests bipolar disorder. Cannot exclude co-morbid personality disorder. Certainly ADHD cannot be definitively ruled out without testing. Pt reports improvement in symptoms and has been active in working toward a positive discharge plan. He is denying SI today, and at this point is agreeable with a discharge tomorrow if condition remains stable. (1) Bipolar affect, depressed: 06/22--The patient was admitted to the [facility] ([facility] mental [facility] unit) on q15 min checks (behavioral with suicide precautions) for safety. The patient will participate in group, recreational, and milieu therapies and will be offered additional individual and family sessions as clinically appropri ate. Risks/benefits/alternatives reviewed re: restart of Trileptal, clonidine, and Risperdal. Discussion included but was not limited to need for monitoring for TD and metabolic abnormalities. Metabolic labs likely available per [facility] records. Will start 300 mg Trileptal tonight with plan for BID tomorrow, confirm dosing with [facility] summary. Risperdal 0.5 mg this has and hold parameters for clonidine. 06/23-- BP improved, continue clonidine hs only as dose help sleep by his report. Reviewed my concerns re: longer term risks of Risperdal given gynecomastia at baseline and off label use of Trileptal. Reviewed that I would suggest titrating from 0.5 mg last hs but holding dose at 1 mg Risperdal and focussing on further Trileptal titration if needed. His reports of symptoms vary somewhat from yesterday, seems a little restless at baseline and perhaps bordering on racing thoughts. note that LDL 158 chol 235, trigly 182 on [facility] paperwork, staff to request records. tox screen reportedly positive for benzos and MJ there, apparently he stated he may have taken a friends Xanax prior to admission there. 06/24 - Continue current medication regimen - [facility] - Pt has been actively making phone calls today and working toward discharge planning - Pt denies SI, reports feeling comfortable with discharge tomorrow Risk Factors Assessment Do You Have Access To A Gun?: No Protective Factors Assessment Employed: No Interval History Identifying Information STEPHON PHILLIPS is a 23-year-old M who is currently homeless, has a history of previous admissions for mood and psychotic symptoms, and was admitted on 06/23/19 00:16 on a 201 voluntary commitment for non-specific SI. Chief Complaint "Um, pretty good. A little stressed." Review of Systems Notes Constitutional: denied Cardiovascular: denied Respiratory: denied Gastrointestinal: denied Neurological: denied Psychiatric: denies symptoms other than stated above Total of at least 10 systems reviewed, pertinent positives as above and in HPI. Sleep Information Total Hours of Sleep: 7.25 Sleep Comments: pt on q-15 minute checks Meal Information Percent Meal Consumed - Breakfast: 100 Percent Meal Consumed - Lunch: 100 Percent Meal Consumed - Dinner: 100 Subjective Subjective Patient was seen & assessed and interval progress reviewed with treatment team. Staff report the patient has been participating in group programming. He has been giving conflicting reports regarding possible housing options - initially stating he had several people he could stay with, but later reporting he is homeless with no other options. Pt has been actively working with social work to coordinate discharge plans. Pt was seen today to assess progress since admission. Pt states that he is doing well today, but admits to being under some stress as he is attempting to coordinate aspects of his discharge plan. Pt states he has been making several phone calls today, but was happy to have applied for medical assistance and is still hoping to get in touch with [facility] to coordinate aftercare. Pt is hopeful to remain in the [place] area and was even talking about the possibility of returning to his previous place of employment. Pt is discussing reasonable housing options, including the possible exploration of a hotel. Pt denies SI, admitting that he feels much more optimistic and "it seems like there is some hope." Pt denies other needs or concerns at this time. Physical Exam Psychiatric Orientation: alert, oriented x 3 and cooperative Apperance: appropriately dressed (casually, wearing t-shirt and jeans), appropriately groomed and appeared stated age Eye Contact: good eye contact Motor Behavior: steady gait and station and no abnormal motor movements Speech: normal rate/rhythm/volume of speech Affect: euthymic affect and mood congruent with affect Mood: + anxious mood ("A little stressed, but good"); no depressed mood Thought Process: goal directed thought process, clear/coherent thought process and thought association intact Thought Content: reality based without delusions; no hopelessness ("more optimistic") Suicidal Thoughts: denies suicidal thoughts and denies suicidal intent Homicidal Thoughts: denies homicidal thoughts Hallucinations: no auditory hallucinations and no visual hallucinations Cognition: attention grossly intact and language grossly intact Insight: good insight Judgement: good judgement Vital Signs (Past 24 Hours) Last Vital Signs Temp 36.5 C 06/25/19 06:40 Pulse 75 06/25/19 06:40 Resp 18 06/25/19 06:40 BP 129/76 06/25/19 06:40 Pulse Ox 99 06/23/19 02:05 Results & Data ([facility]) Laboratory Results Laboratory Results - last 24 hr 06/22/19 20:51 U Marijuana THC Carboxy 220 H Drug Screen Comment SEE NOTE Current Inpatient Medications Current Inpatient Medications: Current Inpatient Medications Acetaminophen (Tylenol) 650 mg PO Q4H PRN PRN Reason: Headache or Minor Fever Stop: 07/23/19 02:00 Al Hydrox/Mg Hydrox/Simethicone (Maalox) 30 ml PO Q4H PRN PRN Reason: GI Upset Stop: 07/23/19 02:00 Bismuth Subsalicylate (Kaopectate) 15 ml PO PRN PRN PRN Reason: Loose Stool Stop: 07/23/19 02:00 Clonidine HCl (Catapres) 0.1 mg PO HS MARLENI Stop: 07/23/19 21:59 Last Admin: 06/24/19 21:13 Dose: 0.1 mg Documented by: Hydroxyzine HCl (Vistaril) 50 mg PO HSZ PRN PRN Reason: Insomnia Stop: 07/23/19 02:00 Hydroxyzine HCl (Vistaril) 25 mg PO Q4H PRN PRN Reason: Anxiety Stop: 07/23/19 02:00 Magnesium Hydroxide (Milk Of Magnesia) 30 ml PO DAILY PRN PRN Reason: Constipation Stop: 07/23/19 02:00 Oxcarbazepine (Trileptal) 300 mg PO BID MARLENI Stop: 07/23/19 20:59 Last Admin: 06/25/19 08:31 Dose: 300 mg Documented by: Risperidone (Risperdal) 1 mg PO HS MARLENI Stop: 07/25/19 21:59 Sodium Chloride ([employer] Nasal) 1 - 2 sprays NA PRN PRN PRN Reason: Nasal Dryness/Congestion Stop: 07/23/19 02:00 Mental Health & Subst Abuse Tx Therapist Name of Therapist: None Order Picker/Assembler Name of Order Picker/Assembler: Intake with [facility] 06/17 (did not complete) Post Discharge Appointments Primary Care Physician Name Of Family Doctor: None
[2019-06-25] MEDS: cloNIDine HCL 0.1 MG TAB PO SCH (21:07)
[2019-06-25] MEDS ORDERED: risperiDONE 1 MG TABLET PO SCH (22:00)
[2019-06-26] MEDS: OXcarbazepine 150 MG TABLET PO SCH (08:22)
--- NOTE | 2019-06-26 10:20 | Discharge Summary ---
Date of Service June 26, 2019 History of Present Illness States that he was "doing OK" living with his mom in [place] until he returned to the area a few months ago. He was staying with various friends and had secured at job at [employer], "then it all fall apart when COVID-19 happened". He wasn't working long enough to qualify for unemployment and feels like stays with friends they take advantage of him. He at one point told a staff member that some of these acquaintances actually claimed to be gang members and bragged about stealing and showed him a gun. He was hospitalized at the [facility] 2 weeks ago and did apply for MA but "hasn't heard anything". He states he was hospitalized for suicidal ideation without intent or plan but records not readily available as the weekend. He denies manic symptoms but states "since I've been there before and told them I have a family history of bipolar disorder" he was started on Trileptal, Risperdal, and clonidine, the latter for ?HTN. He states the medication combo was well tolerated and calmed his anxiety but he did not have means to fill the prescription. His grandmother about 1 year ago so no family locally other than his father who was just [facility] (blew up house in [place] with [facility] [employer]) and is not a supportive living option. "I'm done with my family and friends, all I want is a fresh start." He was rather non-specific about other depressive at this time. He did have BP elevation in ED but adamantly denies any substance use for "years". Reviewed walker from his 2018 hospitalization here and he denied all. He expressed frustration with multiple diagnoses over the years. Reviewed that dx is complicated by past substance use but he certainly describes periods of increased impulsive decision making outside of baseline inattentive symptoms, hx of significant mood shifts coinciding with substance use, significant abuse history, recurrent depressions. Reviewed that shannon and hypomania don't mean elated, may mean reckless of irritable. Physical Exam Psychiatric Orientation: alert and cooperative Apperance: appropriately dressed, appropriately groomed and appeared stated age Eye Contact: good eye contact Motor Behavior: steady gait and station and no abnormal motor movements Speech: normal rate/rhythm/volume of speech Affect: euthymic affect and mood congruent with affect "Really good." Thought Process: goal directed thought process Thought Content: reality based without delusions Suicidal Thoughts: denies suicidal thoughts Homicidal Thoughts: denies homicidal thoughts Hallucinations: no auditory hallucinations and no visual hallucinations Cognition: recent memory grossly intact, attention grossly intact and language grossly intact Estimated Intelligence: average estimated intelligence Insight: + fair insight Judgement: + fair judgement Vital Signs (Past 24 Hours) Last Vital Signs Temp 36.6 C 06/26/19 06:49 Pulse 69 06/26/19 06:49 Resp 18 06/26/19 06:49 BP 116/75 06/26/19 06:49 Pulse Ox 99 06/23/19 02:05 Principal Diagnosis Bipolar disorder not otherwise specified, most recent episode depressed. Cannabis use disorder. Psychiatric Data Patient was hospitalized for 3 days. On admission, he was resumed on his previous medication regimen of oxcarbazepine, clonidine, and risperidone, as he reported these medications were helpful, and all are available on the [facility] $9/$4 list. He initially declined groups, but over his last 2 days in the hospital attended and participated in programming, and processed his psychosocial stressors. He spent a lot of time on the phone trying to arrange outpatient supports and assistance with housing, and contacted [facility] who offered to pay for a hotel room for him for the next 2 weeks while he worked on permanent housing. He was referred to the [facility] for case management and completed an intake. He also contacted his old employer and stated he was able to get his job back. He was observed to be eating and sleeping well, and taking medications without difficulty. He reported improved mood, and consistently de nied suicidal ideation. Day of Discharge Assessment Staff report the patient is attending and participating in groups and therapy, discussing his discharge plans, and stating he feels ready to leave the hospital. He has processed his difficult relationship with his parents, whom he stated have always been more concerned with themselves then with him, and was disappointed that when he tried to contact his mother just to give her an update on how he was doing, she responded by telling him she would not provide him with money or a place to stay. He stated when he was younger, his family would discourage him from seeking mental health treatment. On my assessment, he states that his mood has improved significantly since admission, he feels hop eful and "I definitely have a positive outlook." He denies thoughts of harming himself or anyone else, and is looking forward to leaving the hospital and working on achieving his goals of stable employment and housing. He is very pleased to have found a safe place to stay, and plans to work with his BCM to work on permanent housing. He denies side effects to medications, and states that he has sufficient funds to pay for the prescriptions [id number] (reviewed cost at [facility] pharmacy). He denies any safety concerns with leaving the hospital, stating "I can get more done out there. I've kind of hit the wall with respect to being in here." Transition of Care Transition Of Care Record: was reviewed with the patient Advance Directives Advance Directives Information Provided: Yes Advance Directives: No Mental Health Advance Directive: No Advance Directives on File: No Living Will: No Power of Bus Driver School: No Advance Directives Reason:: Declines as Mental Health Visit. Risk Factors Assessment Risk factors were mitigated by admission to the inpatient unit, use of medica tions to target mood symptoms, education about the risks of substance abuse and recommendations for abstinence, education about his diagnosis and treatment recommendations, involving him in groups and therapy, working on healthy coping skills and a discharge safety plan, referring him for community services to assist with housing and accessing treatment, assisting him with medical assistance application and referring for a blended piano case maker, who will assist with setting up therapy and psychiatric care. Patient has demonstrated improvement in mood and resolution of suicidal thoughts, has consistently denied SI here and has not engaged in SIB, is eating and sleeping well, taking medications as directed, and stating willingness to follow-up with outpatient treatment. He is requesting discharge, and as he is no longer at acute risk of harm to himself, can be managed as an outpatient at this time. He does not have risk factors placing him at current risk of harm to others. Male: Yes : Yes Do You Have Access To A Gun?: No Health Problems: No Mental Health Diagnoses: Yes Substance Use Disorders: Yes Previous Attempt: Yes Previous Attempt; Highly Lethal: No Family History of Suicide: No Previous Psychiatric Hospitalization: Yes Hopelessness: No Smoker: Yes Protective Factors Assessment : No Responsible for Young Children: No Employed: Yes Stable Relationships: No Supportive Family: No Good Rapport with Provider: Yes Tobacco Cessation at Discharge Tobacco Cessation Medication Prescribed at Discharge: Offered & Pt Refused Total Time Total Time Includes: Examination of the patient, Discharge Planning and Medication Reconciliation Discharge Data Lab Results 06/22/19 06/22/19 06/22/19 20:51 20:51 20:51 WBC RBC Hgb Hct MCV MCH MCHC RDW Std Deviation RDW Coeff of Raad Plt Count MPV Immature Gran % (Auto) Neut % (Auto) Lymph % (Auto) [place] % (Auto) Eos % (Auto) Baso % (Auto) Immature Gran # (Auto) Neut # (Auto) Lymph # (Auto) [place] # (Auto) Eos # (Auto) Baso # (Auto) Sodium Potassium Chloride Carbon Dioxide Anion Gap BUN Creatinine Est Cr Clr Drug Dosing Est GFR ( Amer) Est GFR (Non-Af Amer) BUN/Creatinine Ratio Glucose Calcium Total Bilirubin AST ALT Alkaline Phosphatase Total Protein Albumin Globulin Albumin/Globulin Ratio TSH Urine Color Dark Yellow Urine Appearance Clear Urine pH 7.0 Ur Specific [place] 1.030 Urine Protein Negative Urine Glucose (UA) Negative Urine Ketones Trace H Urine Blood Negative Urine Nitrite Negative Urine Bilirubin Negative Urine Urobilinogen Negative Ur Leukocyte Esterase Trace H Urine WBC (Auto) 5-10 H Urine RBC (Auto) 0-4 U Hyaline Cast (Auto) 5-10 H U Epithel Cells (Auto) >30 H Urine Bacteria (Auto) Negative Salicylates Urine Opiates Screen Neg Ur Methadone, Qual Neg Acetaminophen Urine Barbiturates Neg Ur Phencyclidine (PCP) Neg U Amphetamin/Meth Scrn Neg MDMA (Ecstasy) Screen Neg U Benzodiazepines Scrn Neg Ur Cocaine Metabolite Neg U Marijuana (THC) Screen Pos H U Marijuana THC Carboxy 220 H Drug Screen Comment SEE NOTE Ethyl Alcohol mg/dL 06/22/19 06/22/19 06/22/19 21:27 21:27 21:27 WBC RBC Hgb Hct MCV MCH MCHC RDW Std Deviation RDW Coeff of Raad Plt Count MPV Immature Gran % (Auto) Neut % (Auto) Lymph % (Auto) [place] % (Auto) Eos % (Auto) Baso % (Auto) Immature Gran # (Auto) Neut # (Auto) Lymph # (Auto) [place] # (Auto) Eos # (Auto) Baso # (Auto) Sodium 140 Potassium 3.3 L Chloride 110 H Carbon Dioxide 25 Anion Gap 6.0 BUN 12 Creatinine 1.12 Est Cr Clr Drug Dosing 117.2 Est GFR ( Amer) 107.5 Est GFR (Non-Af Amer) 92.7 BUN/Creatinine Ratio 10.4 Glucose 132 H Calcium 9.4 Total Bilirubin 0.3 AST 8 L ALT 20 Alkaline Phosphatase 81 Total Protein 7.7 Albumin 4.3 Globulin 3.4 Albumin/Globulin Ratio 1.3 TSH 0.495 Urine Color Urine Appearance Urine pH Ur Specific [place] Urine Protein Urine Glucose (UA) Urine Ketones Urine Blood Urine Nitrite Urine Bilirubin Urine Urobilinogen Ur Leukocyte Esterase Urine WBC (Auto) Urine RBC (Auto) U Hyaline Cast (Auto) U Epithel Cells (Auto) Urine Bacteria (Auto) Salicylates 1.8 L Urine Opiates Screen Ur Methadone, Qual Acetaminophen < 2 L Urine Barbiturates Ur Phencyclidine (PCP) U Amphetamin/Meth Scrn MDMA (Ecstasy) Screen U Benzodiazepines Scrn Ur Cocaine Metabolite U Marijuana (THC) Screen U Marijuana THC Carboxy Drug Screen Comment Ethyl Alcohol mg/dL < 3.0 06/22/19 21:27 WBC 9.24 RBC 4.87 Hgb 14.5 Hct 42.1 MCV 86.4 MCH 29.8 MCHC 34.4 RDW Std Deviation 40.8 RDW Coeff of Raad 12.9 Plt Count 297 MPV 10.0 Immature Gran % (Auto) 0.2 Neut % (Auto) 58.2 Lymph % (Auto) 33.7 [place] % (Auto) 6.9 Eos % (Auto) 0.6 Baso % (Auto) 0.4 Immature Gran # (Auto) 0.02 Neut # (Auto) 5.37 Lymph # (Auto) 3.11 [place] # (Auto) 0.64 H Eos # (Auto) 0.06 Baso # (Auto) 0.04 Sodium Potassium Chloride Carbon Dioxide Anion Gap BUN Creatinine Est Cr Clr Drug Dosing Est GFR ( Amer) Est GFR (Non-Af Amer) BUN/Creatinine Ratio Glucose Calcium Total Bilirubin AST ALT Alkaline Phosphatase Total Protein Albumin Globulin Albumin/Globulin Ratio TSH Urine Color Urine Appearance Urine pH Ur Specific [place] Urine Protein Urine Glucose (UA) Urine Ketones Urine Blood Urine Nitrite Urine Bilirubin Urine Urobilinogen Ur Leukocyte Esterase Urine WBC (Auto) Urine RBC (Auto) U Hyaline Cast (Auto) U Epithel Cells (Auto) Urine Bacteria (Auto) Salicylates Urine Opiates Screen Ur Methadone, Qual Acetaminophen Urine Barbiturates Ur Phencyclidine (PCP) U Amphetamin/Meth Scrn MDMA (Ecstasy) Screen U Benzodiazepines Scrn Ur Cocaine Metabolite U Marijuana (THC) Screen U Marijuana THC Carboxy Drug Screen Comment Ethyl Alcohol mg/dL Hospital Course (1) Bipolar affect, depressed: 06/22--The patient was admitted to the [facility]) on q15 min checks (behavioral with suicide precautions) for safety. The patient will participate in group, recreational, and milieu therapies and will be offered additional individual and family sessions as clinically appropriate. Risks/benefits/alternatives reviewed re: restart of Trileptal, clonidine, and Risperdal. Discussion included but was not limited to need for monitoring for TD and metabolic abnormalities. Metabolic labs likely available per [facility] records. Will start 300 mg Trileptal tonight with plan for BID tomorrow, confirm dosing with [facility] d/c summary. Risperdal 0.5 mg this has and hold parameters for clonidine. 06/23-- BP improved, continue clonidine hs only as dose help sleep by his report. Reviewed my concerns re: longer term risks of Risperdal given gynecomastia at baseline and off label use of Trileptal. Reviewed that I would suggest titrating from 0.5 mg last hs but holding dose at 1 mg Risperdal and focussing on further Trileptal titration if needed. His reports of symptoms vary somewhat from yesterday, seems a little restless at baseline and perhaps bordering on racing thoughts. note that LDL 158 chol 235, trigly 182 on [facility] d/c paperwork, staff to request records. tox screen reportedly positive for benzos and MJ there, apparently he stated he may have taken a friends Xanax prior to admission there. 06/24 - Continue current medication regimen - all medications available on [facility] Generic Drug list - Pt has been actively making phone calls today and working toward discharge planning - Pt denies SI, reports feeling comfortable with discharge tomorrow 06/25 -Patient completed [facility], and they will assist him with arranging outpatient treatment once his insurance is active. -Patient contacted [facility], and they will provide him with a hotel room for 2 weeks to give him time to establish more permanent housing. Mental Health & Subst Abuse Tx Therapist Name of Therapist: None Cant Hooker Name of Cant Hooker: [facility] Phone Number for Cant Hooker: [phone] Case Management Appointment Comment: Follow up to request/schedule intake for case management, therapy, meds Post Discharge Appointments Primary Care Physician Name Of Family Doctor: None Smoking Cessation Counseling Tobacco Cessation Medication Prescribed at Discharge: Offered & Pt Refused Contact Information Discharge Discharge Plan Discharge Items Patient Disposition: Home - Self-Care Reason For Visit: DEPRESSION NOS Discharge Diagnosis: Bipolar disorder NOS Cannabis abuse Activity: Per Instructions section Non-emergency contact: Psychiatrist, Therapist and Repair Coil Winder Call non-emergency contact if: you have any medication questions and your symptoms worsen Follow-up/Referrals: PCP,NO [Primary Care Provider] - Diet: Regular Addtl Attending Provider Instructions: SPECIAL CARE INSTRUCTIONS: 1. Follow through with your scheduled aftercare appointments. If unable to keep an appointment, please call to reschedule. 2. Take your medication only as prescribed. Medication should not be changed or stopped without the approval of your doctor. In the event of worsening symptoms or concerns about side effects, contact your doctor immediately. 3. Utilize new healthy coping skills, anger management skills, and stress management skills learned during your hospitalization. Journal feelings and process them with a support person. Identify stressors or situations that may result in relapse, deterioration or inappropriate behaviors and develop a plan to deal with those issues. 4. If your coping skills are ineffective and you are in crisis, contact your outpatient providers for direction. If unable to reach your providers, please call the CAN HELP LINE AT or go to the closest Emergency Room. 5. Avoid alcohol and un-prescribed drugs. 6. You have been provided with the Mental Health Advance Directives Pamphlet for your review. AFTERCARE APPOINTMENTS: * Please call your insurance company prior to your scheduled appointment to confirm your aftercare providers are covered. Take your insurance information to your appointments. WHO TO CALL AND WHEN: Medical Emergencies: For questions or emergencies related to your hospital stay, please contact the Inpatient Behavioral Health Unit at [phone]. A hose maker is on-call 27/09 for the Behavioral Health Unit for emergencies At any time you feel your situation is an emergency, you may also call 911 immediately. Your Doctors Instructions noted above were prepared by provider Criselda Trujillo MD. Pending Studies at Discharge: No Stand-Alone Forms: My [facility], Smoking Cessation, Suicide Prevention Resources Medications and DC Order Prescriptions: New risperidone 1 mg Tablet 1 mg PO HS Qty: 30 RF: 0 Continued melatonin 3 mg PO HS RF: 0 oxcarbazepine [Trileptal] 300 mg Tablet 300 mg PO BID Qty: 60 RF: 0 Changed clonidine HCl 0.1 mg Tablet 0.1 mg PO HS Qty: 30 RF: 0 Discontinued risperidone [Risperdal] 2 mg Tablet 2 mg PO HS RF: 0 Discharge Orders: Discharge Order (Routine); Ordered 06/26/19 Ordered By: Criselda Trujillo Admission Data Admit Date/Time: 06/23/19 00:16 Attending Provider: Fauzia Stratton Admit Provider: Fauzia Stratton Primary Care Provider: PCP,NO Other Interventions: PSY Interdisciplinary Discharge Planning Last Done: 06/25/19 16:08 Coding Level of Care Code 17604 D/C day mgmt > 30 min Diagnoses Bipolar affect, depressed F31.30
== END 2019-06-26 11:10 | disposition home or self-care (01) | DRG 885 ==
LOC: ED 20:33 → 3S 06-23 00:16

== ENCOUNTER 2021-08-11 14:50 | Inpatient (IN) ==
[2021-08-11] MEDS ORDERED: LORazepam 1 MG TAB SL STA (16:12)
[2021-08-11 16:20] LABS: Basophils # (auto) 0.02 K/uL (0-0.2); Basophils % (auto) 0.2 %; Eosinophils # (auto) 0.09 K/uL (0-0.5); Eosinophils % (auto) 1.1 %; Hematocrit (blood only) 39.4 % (42-52); Hemoglobin 13.3 g/dL (14.0-18.0); Immature Granulocytes # (auto) 0.01 K/uL (0.00-0.02); Immature Granulocytes % (auto) 0.1 %; Lymphocytes # (auto) 2.21 K/uL (1.2-3.4); Lymphocytes % (auto) 26.2 %; Mean Corpuscular Hemoglobin 30.3 pg (25-34); Mean Corpuscular Hgb Conc 33.8 g/dL (32-36); Mean Corpuscular Volume 89.7 fL (80-100); Mean Platelet Volume 9.5 fL (7.4-10.4); Monocytes # (auto) 0.49 K/uL (0.11-0.59); Monocytes % (auto) 5.8 %; Neutrophils # (auto) 5.63 K/uL (1.4-6.5); Neutrophils % (auto) 66.6 %; Platelet Count 275 K/uL (130-400); RDW Coefficient of Variation 13.1 % (11.5-14.5); RDW Standard Deviation 43.1 fL (36.4-46.3); Red Blood Count 4.39 M/uL (4.7-6.1); White Blood Count 8.45 K/uL (4.8-10.8)
--- NOTE | 2021-08-11 16:21 | Emergency Department Note ---
History of Present Illness General Chief complaint: Mental Health Evaluation Time Seen by Provider: 08/11/21 15:34 Source: patient Mode of arrival: ambulatory Limitations: no limitations History of Present Illness Provider complaint: Mental health evaluation This is a 25-year-old male presents emergency department for mental health evaluation. Patient states he feels scattered and anxious. Patient admits to marijuana use. Patient was here 2 days ago with a similar but more severe presentation and after the effects of the recreational drugs seem to wear off patient was coherent, clearheaded, able to have a conversation and evaluation with the case management staff and was referred for additional outpatient follow-up. Patient states he has a history of anxiety, depression, and bipolar disorder. He states he does take medications for these but does not currently seeing a psychiatrist. Patient states he has been using marijuana since high school as it would typically help him calm down and help him focus. He denies SI/HI. He states he feels paranoid. Pt seen during a time of high acuity and national emergency pandemic while wearing PPE. Home Medications Medication Instructions Recorded Confirmed Type bupropion HCl 150 mg tablet,12 hr 150 mg PO BID 08/09/21 08/11/21 History sustained-release (Wellbutrin SR) fluticasone propionate 50 2 spray INTRANASAL QAM 08/09/21 08/11/21 History mcg/actuation nasal spray,suspension quetiapine 100 mg tablet 100 mg PO HS 08/09/21 08/11/21 History Allergies Allergy/AdvReac Type Severity Reaction Status Date / Time No Known Allergies Allergy Verified 08/09/21 17:43 Past Med/Surg History Medical History (Updated 08/12/21 @ 14:06 by Abigail Willoughby MD) Cannabis abuse Cannabis use disorder, moderate, dependence Depression Hallucinogen abuse Methamphetamine use Polysubstance abuse Substance-induced psychotic disorder Surgical History No pertinent past surgical history Family History Other COPD (chronic obstructive pulmonary disease) Social History Smoking Status: Current some day smoker Tobacco Type: Cigarettes and E-cigarettes / Vaping Hx Alcohol Use: No Hx Substance Use: No Preferred Language: Kyrgyz Communication Ability: Effective Cat Hooker Required: No Beliefs That Will Affect Care: Spiritual Spiritual Healthcare Practices: Zodiac sign and Cultural Cultural Beliefs: Zodiac sign Feels Safe at Home: Yes Assistive Devices: None Review of Systems A total of 10 systems reviewed and were otherwise negative All systems reviewed & are unremarkable except as noted in HPI & below Physical Exam Vital Signs Vital Signs - 24 hr 08/11/21 20:42 08/11/21 22:00 Temperature 36.9 C 36.8 C Temperature Source Oral Axillary Pulse Rate [Finger] 78 68 Respiratory Rate 17 17 Respiratory Effort / Characteristics Non-Labored Respiratory Depth Normal Blood Pressure [Left Arm] 132/78 130/71 Blood Pressure Mean [Left Arm] 96 90 Pulse Oximetry 97 97 Oxygen Delivery Method Room Air Room Air GENERAL: alert, anxious appearing, well nourished, no distress, non-toxic EYE EXAM: normal conjunctiva, PERRL and EOM's grossly intact OROPHARYNX: no exudate, no erythema, lips, buccal mucosa, and tongue normal and mucous membranes are moist NECK: supple, no nuchal rigidity, no adenopathy, non-tender LUNGS: Clear to auscultation. Normal chest wall mechanics, no w/r/r HEART: no murmurs, S1 normal and S2 normal ABDOMEN: abdomen soft, non-tender, normo-active bowel sounds, no masses, no rebound or guarding. BACK: Back is symmetrical on inspection and there is no deformity, no midline tenderness, no CVA tenderness. SKIN: no rashes and no bruising UPPER EXTREMITIES: upper extremities are grossly normal. FROM, nml pulses b/l. LOWER EXTREMITIES: No pitting edema. FROM, nml pulses b/l. NEURO EXAM: Normal sensorium, cranial nerves II-XII grossly intact, normal speech, no gross weakness of arms, no gross weakness of legs. Gross sensation intact. Course Administered Medications Risperidone (Risperidone 0.5 Mg Tablet) 0.5 mg PO BID PRN PRN Reason: Anxiety Stop: 09/11/21 13:15 Last Admin: 08/12/21 15:29 Dose: 0.5 mg Documented by: [id number] Discontinued Medications Diphenhydramine HCl (Diphenhydramine Capsule 25 Mg Cap) 50 mg PO NOW ONE Stop: 08/12/21 00:46 Last Admin: 08/12/21 01:25 Dose: 50 mg Documented by: [id number] Lorazepam (Lorazepam 1 Mg Tab) 1 mg SL NOW STA Stop: 08/11/21 16:13 Last Admin: 08/11/21 16:20 Dose: 1 mg Documented by: [id number] Lorazepam (Lorazepam 1 Mg Tab) 1 mg PO NOW STA Stop: 08/11/21 19:32 Last Admin: 08/11/21 19:46 Dose: 1 mg Documented by: [id number] Medical Decision Making Differential Diagnosis Differential diagnoses considered include mood disorder, infection, hypoglycemia, electrolyte abnormalities, cardiac sources, intracerebral event, toxicologic, neurologic, as well as others. Medical Records Attestation: I reviewed the patient's medical records. Home Medications Current Medication List: was personally reviewed by me Laboratory Data Attestation: I reviewed the patient's lab results. Result diagrams: 08/11/21 16:02 08/11/21 16:02 Lab Results 08/11/21 08/11/21 08/11/21 Range/Units 15:33 15:33 16:02 WBC 8.45 (4.8-10.8) K/uL RBC 4.39 L (4.7-6.1) M/uL Hgb 13.3 L (14.0-18.0) g/dL Hct 39.4 L (42-52) % MCV 89.7 (80-100) fL MCH 30.3 (25-34) pg MCHC 33.8 (32-36) g/dL RDW Std Deviation 43.1 (36.4-46.3) fL RDW Coeff of Raad 13.1 (11.5-14.5) % Plt Count 275 (130-400) K/uL MPV 9.5 (7.4-10.4) fL Immature Gran % (Auto) 0.1 % Neut % (Auto) 66.6 % Lymph % (Auto) 26.2 % Barton % (Auto) 5.8 % Eos % (Auto) 1.1 % Baso % (Auto) 0.2 % Neut # (Auto) 5.63 (1.4-6.5) K/uL Lymph # (Auto) 2.21 (1.2-3.4) K/uL Barton # (Auto) 0.49 (0.11-0.59) K/uL Eos # (Auto) 0.09 (0-0.5) K/uL Baso # (Auto) 0.02 (0-0.2) K/uL Immature Gran # (Auto) 0.01 (0.00-0.02) K/uL Sodium (136-145) mmol/L Potassium (3.5-5.1) mmol/L Chloride (98-107) mmol/L Carbon Dioxide (21-32) mmol/L Anion Gap (3-11) BUN (6-23) mg/dl Creatinine (0.6-1.4) mg/dl Est Cr Clr Drug Dosing Est GFR ( Amer) ml/min Est GFR (Non-Af Amer) ml/min BUN/Creatinine Ratio (10-20) Glucose (70-99(Fasting)) mg/dl Calcium (8.5-10.1) mg/dl Total Bilirubin (0.2-1.0) mg/dl AST (13-39) U/L ALT (7-52) U/L Alkaline Phosphatase (34-104) U/L Total Protein (6.0-8.3) gm/dl Albumin (3.4-5.0) gm/dl Globulin (2.5-4.0) gm/dl Albumin/Globulin Ratio (0.9-2) TSH (0.300-4.500) uIu/ml Urine Color Yellow Urine Appearance Clear (Clear) Urine pH 7.5 (4.5-7.5) Ur Specific [place] 1.010 (1.000-1.030) Urine Protein Negative (Negative) Urine Glucose (UA) Negative (Negative) Urine Ketones Negative (Negative) Urine Blood Negative (Negative) Urine Nitrite Negative (Negative) Urine Bilirubin Negative (Negative) Urine Urobilinogen Negative (Negative) Ur Leukocyte Esterase Negative (Negative) Salicylates (3.0-30) mg/dl Urine Opiates Screen Neg (Neg) Ur Methadone, Qual Neg (Neg) Acetaminophen (10-30) ug/ml Urine Barbiturates Neg (Neg) Ur Phencyclidine (PCP) Neg (Neg) U Amphetamin/Meth Scrn Neg (Neg) MDMA (Ecstasy) Screen Pos H (Neg) U Benzodiazepines Scrn Neg (Neg) Ur Cocaine Metabolite Neg (Neg) U Marijuana (THC) Screen Pos H (Neg) Ethyl Alcohol mg/dL (<10.0) mg/dl SARS-CoV-2, RNA, NAAT (NEGATIVE) 08/11/21 08/11/21 08/11/21 Range/Units 16:02 16:02 16:02 WBC (4.8-10.8) K/uL RBC (4.7-6.1) M/uL Hgb (14.0-18.0) g/dL Hct (42-52) % MCV (80-100) fL MCH (25-34) pg MCHC (32-36) g/dL RDW Std Deviation (36.4-46.3) fL RDW Coeff of Raad (11.5-14.5) % Plt Count (130-400) K/uL MPV (7.4-10.4) fL Immature Gran % (Auto) % Neut % (Auto) % Lymph % (Auto) % Barton % (Auto) % Eos % (Auto) % Baso % (Auto) % Neut # (Auto) (1.4-6.5) K/uL Lymph # (Auto) (1.2-3.4) K/uL Barton # (Auto) (0.11-0.59) K/uL Eos # (Auto) (0-0.5) K/uL Baso # (Auto) (0-0.2) K/uL Immature Gran # (Auto) (0.00-0.02) K/uL Sodium 140 (136-145) mmol/L Potassium 3.8 (3.5-5.1) mmol/L Chloride 111 H (98-107) mmol/L Carbon Dioxide 23 (21-32) mmol/L Anion Gap 6 (3-11) BUN 9 (6-23) mg/dl Creatinine 1.11 (0.6-1.4) mg/dl Est Cr Clr Drug Dosing Not Reportable Est GFR ( Amer) 107.1 ml/min Est GFR (Non-Af Amer) 92.4 ml/min BUN/Creatinine Ratio 8.1 L (10-20) Glucose 97 (70-99(Fasting)) mg/dl Calcium 9.0 (8.5-10.1) mg/dl Total Bilirubin 0.6 (0.2-1.0) mg/dl AST 15 (13-39) U/L ALT 19 (7-52) U/L Alkaline Phosphatase 56 (34-104) U/L Total Protein 6.6 (6.0-8.3) gm/dl Albumin 4.3 (3.4-5.0) gm/dl Globulin 2.3 L (2.5-4.0) gm/dl Albumin/Globulin Ratio 1.9 (0.9-2) TSH 0.398 (0.300-4.500) uIu/ml Urine Color Urine Appearance (Clear) Urine pH (4.5-7.5) Ur Specific [place] (1.000-1.030) Urine Protein (Negative) Urine Glucose (UA) (Negative) Urine Ketones (Negative) Urine Blood (Negative) Urine Nitrite (Negative) Urine Bilirubin (Negative) Urine Urobilinogen (Negative) Ur Leukocyte Esterase (Negative) Salicylates < 3.0 L (3.0-30) mg/dl Urine Opiates Screen (Neg) Ur Methadone, Qual (Neg) Acetaminophen < 3 L (10-30) ug/ml Urine Barbiturates (Neg) Ur Phencyclidine (PCP) (Neg) U Amphetamin/Meth Scrn (Neg) MDMA (Ecstasy) Screen (Neg) U Benzodiazepines Scrn (Neg) Ur Cocaine Metabolite (Neg) U Marijuana (THC) Screen (Neg) Ethyl Alcohol mg/dL (<10.0) mg/dl SARS-CoV-2, RNA, NAAT (NEGATIVE) 08/11/21 08/11/21 Range/Units 16:02 22:16 WBC (4.8-10.8) K/uL RBC (4.7-6.1) M/uL Hgb (14.0-18.0) g/dL Hct (42-52) % MCV (80-100) fL MCH (25-34) pg MCHC (32-36) g/dL RDW Std Deviation (36.4-46.3) fL RDW Coeff of Raad (11.5-14.5) % Plt Count (130-400) K/uL MPV (7.4-10.4) fL Immature Gran % (Auto) % Neut % (Auto) % Lymph % (Auto) % Barton % (Auto) % Eos % (Auto) % Baso % (Auto) % Neut # (Auto) (1.4-6.5) K/uL Lymph # (Auto) (1.2-3.4) K/uL Barton # (Auto) (0.11-0.59) K/uL Eos # (Auto) (0-0.5) K/uL Baso # (Auto) (0-0.2) K/uL Immature Gran # (Auto) (0.00-0.02) K/uL Sodium (136-145) mmol/L Potassium (3.5-5.1) mmol/L Chloride (98-107) mmol/L Carbon Dioxide (21-32) mmol/L Anion Gap (3-11) BUN (6-23) mg/dl Creatinine (0.6-1.4) mg/dl Est Cr Clr Drug Dosing Est GFR ( Amer) ml/min Est GFR (Non-Af Amer) ml/min BUN/Creatinine Ratio (10-20) Glucose (70-99(Fasting)) mg/dl Calcium (8.5-10.1) mg/dl Total Bilirubin (0.2-1.0) mg/dl AST (13-39) U/L ALT (7-52) U/L Alkaline Phosphatase (34-104) U/L Total Protein (6.0-8.3) gm/dl Albumin (3.4-5.0) gm/dl Globulin (2.5-4.0) gm/dl Albumin/Globulin Ratio (0.9-2) TSH (0.300-4.500) uIu/ml Urine Color Urine Appearance (Clear) Urine pH (4.5-7.5) Ur Specific [place] (1.000-1.030) Urine Protein (Negative) Urine Glucose (UA) (Negative) Urine Ketones (Negative) Urine Blood (Negative) Urine Nitrite (Negative) Urine Bilirubin (Negative) Urine Urobilinogen (Negative) Ur Leukocyte Esterase (Negative) Salicylates (3.0-30) mg/dl Urine Opiates Screen (Neg) Ur Methadone, Qual (Neg) Acetaminophen (10-30) ug/ml Urine Barbiturates (Neg) Ur Phencyclidine (PCP) (Neg) U Amphetamin/Meth Scrn (Neg) MDMA (Ecstasy) Screen (Neg) U Benzodiazepines Scrn (Neg) Ur Cocaine Metabolite (Neg) U Marijuana (THC) Screen (Neg) Ethyl Alcohol mg/dL < 10.0 (<10.0) mg/dl SARS-CoV-2, RNA, NAAT NEGATIVE (NEGATIVE) MDM Narrative This is a 26 yo who presents with anxiety and paranoia after using marijuana. Patient with similar episode 2 days ago. Patient admits to recreational drug use on a regular basis. He does have a history of bipolar, anxiety, and d epression. Labs reassuring. Patient oriented but states he still feels very anxious. He was given ativan to help calm down. patient signed out pending outpatient case manager evaluation. He denies SI/HI. No criteria for involuntary admission at this time. Impression & Plan Anxiety, Bipolar affect, depressed, Substance abuse, Marijuana use Discharge Plan Visit Data Chief Complaint: Mental Health Evaluation ED Provider: Toñito Miller Discharge Problem: Anxiety, Bipolar affect, depressed, Substance abuse, Marijuana use Patient Disposition: Admitted As Inpatient Condition: Good Discharge Instructions Interventions: ED Discharge Assessment Last Done: 08/12/21 01:27 Discharge Problem: Bipolar affect, depressed Qualifiers: Current episode severity: unspecified Qualified Code(s): F31.30 - Bipolar disorder, current episode depressed, mild or moderate severity, unspecified
[2021-08-11 16:23] LABS: Appearance Urine Clear (Clear); Bilirubin Urine Negative (Negative); Blood Urine Negative (Negative); Color Urine Yellow; Glucose Urine UA Negative (Negative); Ketones Urine Negative (Negative); Leukocyte Esterase Urine Negative (Negative); Nitrite Urine Negative (Negative); Protein Urine Negative (Negative); Urobilinogen Urine Negative (Negative); pH Urine 7.5 (4.5-7.5)
[2021-08-11 16:34] LABS: Alanine Aminotransferase 19 U/L (7-52); Albumin Globulin Ratio 1.9 (0.9-2); Albumin Level 4.3 gm/dl (3.4-5.0); Alkaline Phosphatase 56 U/L (34-104); Anion Gap 6 (3-11); Aspartate Aminotransferase 15 U/L (13-39); BUN Creatinine Ratio 8.1 (10-20); Bilirubin,Total 0.6 mg/dl (0.2-1.0); Blood Urea Nitrogen 9 mg/dl (6-23); Carbon Dioxide 23 mmol/L (21-32); Chloride 111 mmol/L (98-107); Est GFR (African American) 107.1 ml/min; Est GFR (Non-African American) 92.4 ml/min; Globulin 2.3 gm/dl (2.5-4.0); Glucose 97 mg/dl (70-99(Fasting)); Potassium 3.8 mmol/L (3.5-5.1); Sodium 140 mmol/L (136-145); Total Protein 6.6 gm/dl (6.0-8.3)
[2021-08-11 17:04] LABS: Acetaminophen < 3 ug/ml (10-30); Salicylate < 3.0 mg/dl (3.0-30)
[2021-08-11 17:38] LABS: Amphetamines+Metham, Urine Neg (Neg); Barbiturates, Urine Neg (Neg); Benzodiazepine, Urine Neg (Neg); Cocaine, Urine Neg (Neg); MDMA (Ecstacy), Urine Pos (Neg); Methadone, Urine Neg (Neg); Opiate, Urine Neg (Neg); Phencyclidine, Urine Neg (Neg)
--- NOTE | 2021-08-11 18:20 | Emergency Department Note ---
ED Visit Note Patient was signed out to me by Dr. Hood pending reevaluation disposition. There was concern that the patient may have used some drugs. The patient did have positive for MDMA as well as marijuana. Patient does not complain of SI HI or AVH. The patient is otherwise well-appearing and medically clear. The patient's pending psych evaluation for further assessment and subsequent disposition Patient was requesting inpatient treatment referral was made. It was made known that the patient did have a rash. After further discussion the patient did have a rash that began after changing laundry detergent several weeks ago. The patient been seen at [facility] and had trialed a course of steroids which he had completed sometime within the week. Patient is a blanching rash that is occasionally itchy. He does admit that it is faded from prior. Given the late hour would avoid prednisone as this will keep him awake but will give him a dose of Benadryl for the time being. Patient was admitted to 3 S. is a voluntary 201. . : Bipolar affect, depressed Qualifiers: Current episode severity: unspecified Qualified Code(s): F31.30 - Bipolar disorder, current episode depressed, mild or moderate severity, unspecified
[2021-08-11] MEDS ORDERED: LORazepam 1 MG TAB PO STA (19:31)
[2021-08-12] MEDS ORDERED: diphenhydrAMINE Capsule 25 MG CAP PO ONE (00:45)
[2021-08-12] MEDS ORDERED: BISMUTH SUBSALICYLATE LIQD 236 ML PO PRN ×2 (00:49→04:36)
[2021-08-12] MEDS ORDERED: ACETAMINOPHEN 325 MG TAB PO PRN (00:49)
[2021-08-12] MEDS ORDERED: SODIUM CHLORIDE 0.65% NA SOLN 45 ML (OCEAN) PRN ×2 (00:49→04:36)
[2021-08-12] MEDS ORDERED: hydrOXYzine HCl 25 MG TAB PO PRN ×4 (00:49→04:36)
[2021-08-12] MEDS ORDERED: MAGNESIUM HYDROXIDE SUSP 30 ML UDC PO PRN ×2 (00:49→04:36)
[2021-08-12] MEDS ORDERED: ALUMINUM/MAGNESIUM SUSP 30 ML UDC PO PRN ×2 (00:49→04:36)
[2021-08-12] MEDS ORDERED: OLANZapine 10 MG TAB PO PRN ×2 (03:36→13:18)
--- NOTE | 2021-08-12 08:47 | History & Physical ---
Date of Service August 12, 2021 Impression / Recommendations Impression The patient is a 26 year old with a history of substance-induced psychosis, polysubstance use disorder, depression, anxiety and possible BPAD (but no clear hx of documented shannon nor clear periods without substance use) who was admitted for increased paranoia, psychic distress and anxiety in the context of recent oral steroid course and methamphetamine use. Diagnostically consistent with unspecific psychosis most likely substance-induced vs substance-withdrawal psychosis vs steroid-induced effects, no current signs of acute shannon. UDS positive for MDMA which could be from more recent methamphetamine use versus false positive from Wellbutrin. The patient is deemed unstable and requires psychiatric hospitalization for diagnostic clarification, safety and stabilization, medication management and development of further coping skills. Discussed medication treatment options in detail. Discussed risks, benefits and alternatives including antipsychotics. Patient would like to start and consented to risperidone for unspecified psychosis. Reviewed side effects including but not limited to: movement (TD, NMS), cardiac (QTc prolongation), and metabolic (stroke, insulin resistance) and necessity for fasting lipid and glucose labwork and AIMS done with score of 0. The patient's use history suggests problematic substance use. Brief intervention was offered and accepted. Intervention was greater than 5 minutes in length and included assessing readiness to quit, advice on how to reduce or abstain and to set a specific goal for this hospitalization. roll on worker will also assist in anticipating barriers to reducing or abstaining from substance use and in problem-solving for solutions to those problems while arranging for referral to appropriate treatment. The patient is in contemplative stage with regards to transtheoretical model of change for methamphetamine use and precontemplative in regards to cannabis use. The patient is advised to decrease consumption due to potential effects on psychosis as well as depressant effects and risk of interaction with prescription medications. The patient agreed to consider this and will be provided with recovery materials to continue to educate self on how to cope with their condition without using substances. And efforts will be made for referrals for outpatient treatment. (1) Substance-induced psychotic disorder: (2) Depression: (3) Anxiety: (4) Cannabis use disorder, moderate, dependence: 08/12/21: The patient was admitted to the [facility] ([facility] mental [facility] unit) on q15 min checks (behavioral with suicide precautions) for safety. The patient will participate in group, recreational, and milieu therapies and will be offered additional individual and family sessions as clinically appropriate. -Hold Wellbutrin given dopaminergic activity -Risperidone 0.5 mg BID with 0.5 mg BID prn for anxiety (previously responded well to 1mg BID) -Benadryl topical cream for rash -Fasting labs in AM for glucose and lipid panel -Hold seroquel to avoid dual antipsychotics Inventory Assets Strengths: employed, willing to seek treatment, sees PCP Needs: additional coping skills, avoidance of substances, medication adjustment, stabilization Suicide Risk Level Suicide Risk Level: Moderate (q15 min suicide checks) Suicide Risk Level Comments: Denies SI but with acute psychosis with paranoia and high psychic distress, but feel safe here and able to safety contract for the unit and will alert staff if he develops any thoughts of SI. 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 Chief Complaint "There is a giant tangled up mess in my head". History of Present Illness Danny Smith presents for psychiatric admission after two recent ED visits for worsening anxiety and paranoia. He endorses feeling very overwhelmed, even by small day-to-day decisions, and with high levels of psychic distress including intense anxiety and paranoia. He has been smoking marijuana but denies any significant change in use nor switch to synthetic nor higher THC content strain in recent weeks and has been using marijuana since high school so this is not new. He likes that marijuana helps him with sleep, reducing anxiety, and social anxiety; there is nothing he doesn't like about it except that at times his family has worried about it because "at one point I was an addict". He has been feeling very paranoid and unsafe at his home. Recently some of his friends who are homeless were staying with him and using various substances including methamphetamines. He reports his last use of methamphetamine was about 1.5 weeks ago. He also notes paranoia and fixation on the TV animated show One[place] and feels this is closely related to his life. States the show seems to be connecting to people in his life and that it reminds him of a time when he watched the show and used acid in the past. Denies any recent acid use. States that he was watched the show a few days ago and a character was talking to the Devil who was selling "cursed items" and they he heard the same voices outside his apartment door "and began to think I was going to get shot". He recently developed a bad rash on his forearms and legs and was seen at urgent care and prescribed a course of oral steroids. When asked about timing confirms that steroid use was about the same time as methamphetamine use and increased paranoia and confusion. Has been intermittently experiencing AH of an old friend and incident of hearing knocking/shoots outside his door. During the interview he asks clarification for the date then notes "oh, today is my birthday then" and "glad I'm here, I feel like I've got major problems in my brain". He describes worsening anxiety with panic attacks, sense of unease, and racing thoughts. He also endorses depression symptoms including tearfulness, hopelessness, helplessness, social isolation, decreased sleep, low energy and decreased appetite. He has been taking seroquel and Wellbutrin which are prescribed by his PCP. Psychiatric ROS notable for hx of self-harm, he endorses hx of shannon but he cannot articulate details about this and difficult to differentiate from periods of substance use. Past Psychiatric History Current Psychiatric Diagnosis: Bipolar I, depression, anxiety,substance-induced psychosis,polysub d/o Outpatient Services: ED CM had referred him to [facility] and [facility] but he did not follow-up after ED discharge two days ago Previous Psych Admissions: [facility] x2 (06/2020 & 04/2017); [facility]; and a facility in [place] Do You Have Access To A Gun?: No History of Previous Suicide Attempt: Yes Describe Attempts in the Past: prior suicide attempt by OD on Coricidin (cough med) in high school Past Medication Trials: he recalls risperidone being helpful (per chart was on 1mg BID during Apr 2017 hospitalization). Per chart review hx sertraline, oxcarbazepine, clonidine Past Head Trauma/Neuro History History of Concussion/Seizure: No Allergies Allergy/AdvReac Type Severity Reaction Status Date / Time No Known Allergies Allergy Verified 08/09/21 17:43 Home Medications Medication Instructions Recorded Confirmed Type bupropion HCl 150 mg tablet,12 hr 150 mg PO BID 08/09/21 08/11/21 History sustained-release (Wellbutrin SR) fluticasone propionate 50 2 spray INTRANASAL QAM 08/09/21 08/11/21 History mcg/actuation nasal spray,suspension quetiapine 100 mg tablet 100 mg PO HS 08/09/21 08/11/21 History Family History Family History of: Depression and Anxiety Alcohol History Hx of Alcohol Use Over the Past 12 Months: Yes (drinks beer 2 times a week 1 to 2) AUDIT Total Score: 6 Smoking Use Have You Smoked or Used Tobacco Products in the Last 30 Days: Yes tobacco type: cigarettes and e-cigarettes Smoking Status: Current some day smoker Smoking packs per day: 0.4 Substance History Hx of Prescription Med Misuse Over the Past 12 Months: Yes (more Seroquel than prescribed) Hx of Over the Counter Med Misuse Over the Past 12 Months: No Hx of Inhalent Misuse Over the Past 12 Months: No Hx of Organic Substance Use Over the Past 12 Months: Yes (marijuana daily) Hx of Illegal Substances/Street Drug Use Over Past 12 Months: Yes (methamphetamine 3 or 4 times in the past 3 months) Problems as a Result of Past Substance Use: Relationships Ended Problems as a Result of Past Substance Use Comments: had a divorce in March opiate use hx last 4 years ago, hx LSD and acid and benzo misuse Personal History Living Arrangements: Apartment Childhood: Grew up in [facility]. Parents are and has sisters who live locally. States all his family lives nearby but he isn't very close with them but sees them occassionally. 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) Marital Status: (as of Mar 2021, currently single) Number Of Children: 0 Beliefs That Will Affect Care: Spiritual and Cultural Current Legal Problems: Yes (paying fine from [facility] for a drug paraphernalia charge) Hx Traumatic Life Events: Yes Patient History Medical History (Updated 08/12/21 @ 14:06 by Abigail Willoughby MD) Cannabis abuse Cannabis use disorder, moderate, dependence Depression Hallucinogen abuse Methamphetamine use Polysubstance abuse Substance-induced psychotic disorder Surgical History No pertinent past surgical history Family History Other COPD (chronic obstructive pulmonary disease) Social History Smoking Status: Current some day smoker Tobacco Type: Cigarettes and E-cigarettes / Vaping Hx Alcohol Use: No Hx Substance Use: No Preferred Language: Bahraini Communication Ability: Effective 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 Chamber Operator Required: No Beliefs That Will Affect Care: Spiritual Spiritual Healthcare Practices: Zodiac sign and Cultural Cultural Beliefs: Zodiac sign Feels Safe at Home: Yes Assistive Devices: None Review of Systems Review of Systems: All systems reviewed & are unremarkable except as noted in HPI & below (rash on bilateral forearms ) Physical Exam Psychiatric: Orientation: alert, oriented to person and oriented to place; + not oriented to time Apperance: appropriately dressed and + disheveled Eye Contact: + fair eye contact Motor Behavior: no abnormal motor movements; n tremor Speech: normal rate/rhythm/volume of speech Affect: + blunted affect Mood: + depressed mood and + anxious mood Thought Process: + thought blocking, + tangential thought process and + looseness of associations Thought Content: + paranoid, + delusions and + ideas of reference Suicidal Thoughts: denies suicidal thoughts Homicidal Thoughts: denies homicidal thoughts Hallucinations: + auditory hallucinations; no visual hallucinations Cognition: recent memory grossly intact, remote memory grossly intact and language grossly intact; + attention not intact Insight: + impaired insight Judgement: + impaired judgement Vital Signs (Past 24 Hours): Last Vital Signs Temp 36.4 C L 08/12/21 02:15 Pulse 60 08/12/21 02:15 Resp 18 08/12/21 02:15 BP 141/94 H 08/12/21 02:15 Pulse Ox 99 08/12/21 02:15 Exam Statement: A physical exam was performed in the ED by Dr. Hood for the purposes of medical clearance. I accept that physical as correct and adequate for the purposes of the inpatient physical exam. Results & Data ([facility]) Laboratory Results Laboratory Results - last 24 hr 08/11/21 08/11/21 08/11/21 15:33 15:33 15:33 WBC RBC Hgb Hct MCV MCH MCHC RDW Std Deviation RDW Coeff of Raad Plt Count MPV Immature Gran % (Auto) Neut % (Auto) Lymph % (Auto) [place] % (Auto) Eos % (Auto) Baso % (Auto) Neut # (Auto) Lymph # (Auto) [place] # (Auto) Eos # (Auto) Baso # (Auto) Immature Gran # (Auto) Sodium Potassium Chloride Carbon Dioxide Anion Gap BUN Creatinine Est Cr Clr Drug Dosing Est GFR ( Amer) Est GFR (Non-Af Amer) BUN/Creatinine Ratio Glucose Calcium Total Bilirubin AST ALT Alkaline Phosphatase Total Protein Albumin Globulin Albumin/Globulin Ratio TSH Urine Color Yellow Urine Appearance Clear Urine pH 7.5 Ur Specific [place] 1.010 Urine Protein Negative Urine Glucose (UA) Negative Urine Ketones Negative Urine Blood Negative Urine Nitrite Negative Urine Bilirubin Negative Urine Urobilinogen Negative Ur Leukocyte Esterase Negative Salicylates Urine Opiates Screen Neg Ur Methadone, Qual Neg Acetaminophen Urine Barbiturates Neg Ur Phencyclidine (PCP) Neg U Amphetamin/Meth Scrn Neg Urine MDEA Pending MDMA (Ecstasy) Screen Pos H MDMA Pending Urine MDMA Pending U Benzodiazepines Scrn Neg Ur Cocaine Metabolite Neg U Marijuana (THC) Screen Pos H U Marijuana THC Carboxy Pending Drug Screen Comment Pending Ethyl Alcohol mg/dL SARS-CoV-2, RNA, NAAT 08/11/21 08/11/21 08/11/21 16:02 16:02 16:02 WBC 8.45 RBC 4.39 L Hgb 13.3 L Hct 39.4 L MCV 89.7 MCH 30.3 MCHC 33.8 RDW Std Deviation 43.1 RDW Coeff of Raad 13.1 Plt Count 275 MPV 9.5 Immature Gran % (Auto) 0.1 Neut % (Auto) 66.6 Lymph % (Auto) 26.2 [place] % (Auto) 5.8 Eos % (Auto) 1.1 Baso % (Auto) 0.2 Neut # (Auto) 5.63 Lymph # (Auto) 2.21 [place] # (Auto) 0.49 Eos # (Auto) 0.09 Baso # (Auto) 0.02 Immature Gran # (Auto) 0.01 Sodium 140 Potassium 3.8 Chloride 111 H Carbon Dioxide 23 Anion Gap 6 BUN 9 Creatinine 1.11 Est Cr Clr Drug Dosing Not Reportable Est GFR ( Amer) 107.1 Est GFR (Non-Af Amer) 92.4 BUN/Creatinine Ratio 8.1 L Glucose 97 Calcium 9.0 Total Bilirubin 0.6 AST 15 ALT 19 Alkaline Phosphatase 56 Total Protein 6.6 Albumin 4.3 Globulin 2.3 L Albumin/Globulin Ratio 1.9 TSH 0.398 Urine Color Urine Appearance Urine pH Ur Specific [place] Urine Protein Urine Glucose (UA) Urine Ketones Urine Blood Urine Nitrite Urine Bilirubin Urine Urobilinogen Ur Leukocyte Esterase Salicylates Urine Opiates Screen Ur Methadone, Qual Acetaminophen Urine Barbiturates Ur Phencyclidine (PCP) U Amphetamin/Meth Scrn Urine MDEA MDMA (Ecstasy) Screen MDMA Urine MDMA U Benzodiazepines Scrn Ur Cocaine Metabolite U Marijuana (THC) Screen U Marijuana THC Carboxy Drug Screen Comment Ethyl Alcohol mg/dL SARS-CoV-2, RNA, NAAT 08/11/21 08/11/21 08/11/21 16:02 16:02 22:16 WBC RBC Hgb Hct MCV MCH MCHC RDW Std Deviation RDW Coeff of Raad Plt Count MPV Immature Gran % (Auto) Neut % (Auto) Lymph % (Auto) [place] % (Auto) Eos % (Auto) Baso % (Auto) Neut # (Auto) Lymph # (Auto) [place] # (Auto) Eos # (Auto) Baso # (Auto) Immature Gran # (Auto) Sodium Potassium Chloride Carbon Dioxide Anion Gap BUN Creatinine Est Cr Clr Drug Dosing Est GFR ( Amer) Est GFR (Non-Af Amer) BUN/Creatinine Ratio Glucose Calcium Total Bilirubin AST ALT Alkaline Phosphatase Total Protein Albumin Globulin Albumin/Globulin Ratio TSH Urine Color Urine Appearance Urine pH Ur Specific [place] Urine Protein Urine Glucose (UA) Urine Ketones Urine Blood Urine Nitrite Urine Bilirubin Urine Urobilinogen Ur Leukocyte Esterase Salicylates < 3.0 L Urine Opiates Screen Ur Methadone, Qual Acetaminophen < 3 L Urine Barbiturates Ur Phencyclidine (PCP) U Amphetamin/Meth Scrn Urine MDEA MDMA (Ecstasy) Screen MDMA Urine MDMA U Benzodiazepines Scrn Ur Cocaine Metabolite U Marijuana (THC) Screen U Marijuana THC Carboxy Drug Screen Comment Ethyl Alcohol mg/dL < 10.0 SARS-CoV-2, RNA, NAAT NEGATIVE Current Inpatient Medications Current Inpatient Medications: Current Inpatient Medications Acetaminophen (Acetaminophen 325 Mg Tab) 650 mg PO Q4H PRN PRN Reason: Headache or Minor Fever Stop: 09/11/21 04:35 Al Hydrox/Mg Hydrox/Simethicone (Aluminum/Magnesium Susp 30 Ml Udc) 30 ml PO Q4H PRN PRN Reason: GI Upset Stop: 09/11/21 04:35 Bismuth Subsalicylate (Bismuth Subsalicylate Liqd 236 Ml) 15 ml PO PRN PRN PRN Reason: Loose Stool Stop: 09/11/21 04:35 Hydroxyzine HCl (Hydroxyzine Hcl 25 Mg Tab) 50 mg PO HSZ PRN PRN Reason: Insomnia Stop: 09/11/21 04:35 Hydroxyzine HCl (Hydroxyzine Hcl 25 Mg Tab) 25 mg PO Q4H PRN PRN Reason: Anxiety Stop: 09/11/21 04:35 Magnesium Hydroxide (Magnesium Hydroxide Susp 30 Ml Udc) 30 ml PO DAILY PRN PRN Reason: Constipation Stop: 09/11/21 04:35 Olanzapine (Olanzapine 10 Mg Tab) 10 mg PO BID PRN PRN Reason: Anxiety/Agitation Stop: 09/11/21 03:35 Sodium Chloride (Sodium Chloride 0.65% Na Soln 45 Ml ([place])) 1 - 2 sprays NA PRN PRN PRN Reason: Nasal Dryness/Congestion Stop: 09/11/21 04:35
[2021-08-12] MEDS ORDERED: risperiDONE 0.5 MG TABLET PO PRN (13:16)
[2021-08-12] MEDS: risperiDONE 0.5 MG TABLET PO PRN (15:29)
[2021-08-12] MEDS: NICOTINE 14 MG/24 HR PATCH TD SCH (18:20)
[2021-08-12] MEDS: risperiDONE 0.5 MG TABLET PO SCH (21:50)
[2021-08-12] MEDS: ACETAMINOPHEN 325 MG TAB PO PRN (23:21)
--- NOTE | 2021-08-13 09:11 | Psychiatric Progress Note ---
Date of Service August 13, 2021 Impression / Recommendations Impression The patient is a 26 year old with a history of substance-induced psychosis, polysubstance use disorder, depression, anxiety and possible BPAD (but no clear hx of documented shannon nor clear periods without substance use) who was admitted for increased paranoia, psychic distress and anxiety in the context of recent oral steroid course and methamphetamine use. Diagnostically consistent with unspecific psychosis most likely substance-induced vs substance-withdrawal psychosis vs steroid-induced effects, no current signs of acute shannon. UDS positive for MDMA which could be from more recent methamphetamine use versus false positive from Wellbutrin. The patient is deemed unstable and requires psychiatric hospitalization for diagnostic clarification, safety and stabilization, medication management and development of further coping skills. 08/13/21: Ongoing psychosis with severely disorganized and bizarre behaviors and easily overwhelmed by any type of stimuli. Unable to tolerate groups. No side effects from risperidone. He previously did well after substance-induced psychosis on 1mg BID. (1) Substance-induced psychotic disorder: (2) Depression: (3) Anxiety: (4) Cannabis use disorder, moderate, dependence: 08/13/21: Increase risperidone to 1mg BID. Fasting labs ordered for AM. 08/12/21: The patient was admitted to the [facility] ([facility] mental health unit) on q15 min checks (behavioral with suicide precautions) for safety. The patient will participate in group, recreational, and milieu therapies and will be offered additional individual and family sessions as clinically appropriate. -Hold Wellbutrin given dopaminergic activity -Risperidone 0.5 mg BID with 0.5 mg BID prn for anxiety (previously responded well to 1mg BID) -Benadryl topical cream for rash -Fasting labs in AM for glucose and lipid panel -Hold seroquel to avoid dual antipsychotics Inventory Assets Strengths: employed, willing to seek treatment, sees PCP Needs: additional coping skills, avoidance of substances, medication adjustment, stabilization Suicide Risk Level Suicide Risk Level: Moderate (q15 min suicide checks) Suicide Risk Level Comments: Denies SI but with acute psychosis with paranoia and high psychic distress, but feel safe here and able to safety contract for the unit and will alert staff if he develops any thoughts of SI. 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 Chief Complaint "My heads keeps flip flopping around ". Review of Systems Sleep Information Total Hours of Sleep: 6 Sleep Comments: pt on q-15 minute checks Meal Information Percent Meal Consumed - Lunch: 95 Percent Meal Consumed - Dinner: 100 Subjective Subjective Patient was seen & assessed and interval progress reviewed with treatment team nursing and social work. Very disorganized and out of his room. Hyperverbal. Very anxious but then laughing while talking on the phone for many hours last night. Found the risperidone helpful. Did some bizarre dancing while holding the phone. Slept well last night, ~8 hours. Today could not tolerate process groups and went to his room after asking for a prn. He attempted to walk away from exercise group with one of the resistance bands. Continues to have lots of ideas of reference. This afternoon he reports feeling overwhelmed by his head flip flopping and tries to describe this further but experiences thought blocking and can't. He would like a higher dose of risperidone. Discussed increasing starting at [facility] which he consents to. He denies any medication side effects. Physical Exam Psychiatric Orientation: alert, oriented to person and oriented to place; + not oriented to time Apperance: appropriately dressed and + disheveled Eye Contact: + fair eye contact Motor Behavior: no abnormal motor movements; n tremor Speech: normal rate/rhythm/volume of speech Affect: + blunted affect Mood: + depressed mood and + anxious mood Thought Process: + thought blocking, + tangential thought process and + looseness of associations Thought Content: + paranoid, + delusions and + ideas of reference Suicidal Thoughts: denies suicidal thoughts Homicidal Thoughts: denies homicidal thoughts Hallucinations: + auditory hallucinations; no visual hallucinations Cognition: recent memory grossly intact, remote memory grossly intact and language grossly intact; + attention not intact Insight: + impaired insight Judgement: + severely impaired judgement Vital Signs (Past 24 Hours) Last Vital Signs Temp 36.5 C 08/13/21 06:52 Pulse 67 08/13/21 06:53 Resp 16 08/13/21 06:52 BP 101/66 08/13/21 06:53 Pulse Ox 99 08/12/21 02:15 Results & Data ([facility]) Current Inpatient Medications Current Inpatient Medications: Current Inpatient Medications Acetaminophen (Acetaminophen 325 Mg Tab) 650 mg PO Q4H PRN PRN Reason: Headache or Minor Fever Stop: 09/11/21 04:35 Last Admin: 08/12/21 23:21 Dose: 650 mg Documented by: Al Hydrox/Mg Hydrox/Simethicone (Aluminum/Magnesium Susp 30 Ml Udc) 30 ml PO Q4H PRN PRN Reason: GI Upset Stop: 09/11/21 04:35 Bismuth Subsalicylate (Bismuth Subsalicylate Liqd 236 Ml) 15 ml PO PRN PRN PRN Reason: Loose Stool Stop: 09/11/21 04:35 Fluticasone Propionate (Fluticasone Propionate Na Spr 16 Gm Btl) 2 sprays NA QAM [facility] Stop: 09/12/21 08:59 Hydroxyzine HCl (Hydroxyzine Hcl 25 Mg Tab) 50 mg PO HSZ PRN PRN Reason: Insomnia Stop: 09/11/21 04:35 Hydroxyzine HCl (Hydroxyzine Hcl 25 Mg Tab) 25 mg PO Q4H PRN PRN Reason: Anxiety Stop: 09/11/21 04:35 Magnesium Hydroxide (Magnesium Hydroxide Susp 30 Ml Udc) 30 ml PO DAILY PRN PRN Reason: Constipation Stop: 09/11/21 04:35 Miscellaneous (Remove Nicoderm Patch) 1 ea N/A DAILY@0859 [facility] Stop: 09/12/21 08:58 Nicotine (Nicotine 14 Mg/24 Hr Patch) 14 mg TD QAM [facility] Stop: 09/11/21 17:59 Last Admin: 08/12/21 18:20 Dose: 14 mg Documented by: Olanzapine (Olanzapine 10 Mg Tab) 10 mg PO BID PRN PRN Reason: Agitation Stop: 09/11/21 03:35 Risperidone (Risperidone 0.5 Mg Tablet) 0.5 mg PO BID [facility] Stop: 09/11/21 20:59 Last Admin: 08/12/21 21:50 Dose: 0.5 mg Documented by: Risperidone (Risperidone 0.5 Mg Tablet) 0.5 mg PO BID PRN PRN Reason: Anxiety Stop: 09/11/21 13:15 Last Admin: 08/12/21 15:29 Dose: 0.5 mg Documented by: Sodium Chloride (Sodium Chloride 0.65% Na Soln 45 Ml ([place])) 1 - 2 sprays NA PRN PRN PRN Reason: Nasal Dryness/Congestion Stop: 09/11/21 04:35 Zinc Acetate/Diphenhydramine (Diphenhydramine 2%/Zinc 0.1% Cream 28gm Tube) 1 appln EXT BID PRN PRN Reason: Rash Stop: 09/11/21 14:09 Mental Health & Subst Abuse Tx Therapist Name of Therapist: None current - had intake scheduled at [facility] but they cancelled Cosmetic Assembler Name of Cosmetic Assembler: None Post Discharge Appointments Primary Care Physician Name Of Family Doctor: Shana Schulte Greygita Contact Information Discharge Discharge Address: [address] [place] [address],[place] [id number]
[2021-08-13] MEDS: NICOTINE 14 MG/24 HR PATCH TD SCH ×2 (09:49→17:10)
[2021-08-13] MEDS: risperiDONE 0.5 MG TABLET PO SCH (09:49)
[2021-08-13] MEDS: FLUTICASONE PROPIONATE NA SPR 16 GM BTL SCH (09:49)
[2021-08-13] MEDS: risperiDONE 0.5 MG TABLET PO PRN (10:34)
[2021-08-13] MEDS: ACETAMINOPHEN 325 MG TAB PO PRN (19:23)
[2021-08-13] MEDS: risperiDONE 1 MG TABLET PO SCH (21:45)
[2021-08-14] MEDS: FLUTICASONE PROPIONATE NA SPR 16 GM BTL SCH (08:34)
[2021-08-14] MEDS: risperiDONE 1 MG TABLET PO SCH ×2 (08:34→20:26)
[2021-08-14] MEDS: NICOTINE 14 MG/24 HR PATCH TD SCH (08:44)
--- NOTE | 2021-08-14 09:16 | Psychiatric Progress Note ---
Date of Service August 14, 2021 Impression / Recommendations Impression The patient is a 26 year old with a history of substance-induced psychosis, polysubstance use disorder, depression, anxiety and possible BPAD (but no clear hx of documented shannon nor clear periods without substance use) who was admitted for increased paranoia, psychic distress and anxiety in the context of recent oral steroid course and methamphetamine use. Diagnostically consistent with unspecific psychosis most likely substance-induced vs substance-withdrawal psychosis vs steroid-induced effects, no current signs of acute shannon. UDS positive for MDMA which could be from more recent methamphetamine use versus false positive from Wellbutrin. The patient is deemed unstable and requires psychiatric hospitalization for diagnostic clarification, safety and stabilization, medication management and development of further coping skills. 08/14/21: Ongoing psychosis, disorganized and bizarre behaviors and easily overwhelmed by stimuli. Tolerating higher dose of risperidone. Reviewed fasting labs-glucose and fasting lipid panel all within normal limits. Schedule benadryl cream as he has been forgetting to ask for it and rash is still present, reviewed ED providers sense that it was possibly due to a detergent change and allergic reaction to this and he agrees that this is the most likely cause. (1) Substance-induced psychotic disorder: (2) Depression: (3) Anxiety: (4) Cannabis use disorder, moderate, dependence: 08/14/21: Continue current medications and tx plan. 08/13/21: Increase risperidone to 1mg BID. Fasting labs ordered for AM. 08/12/21: The patient was admitted to the [facility] ([facility] mental health unit) on q15 min checks (behavioral with suicide precautions) for safety. The patient will participate in group, recreational, and milieu therapies and will be offered additional individual and family sessions as clinically appropriate. -Hold Wellbutrin given dopaminergic activity -Risperidone 0.5 mg BID with 0.5 mg BID prn for anxiety (previously responded well to 1mg BID) -Benadryl topical cream for rash -Fasting labs in AM for glucose and lipid panel -Hold seroquel to avoid dual antipsychotics Inventory Assets Strengths: employed, willing to seek treatment, sees PCP Needs: additional coping skills, avoidance of substances, medication adjustment, stabilization Suicide Risk Level Suicide Risk Level: Moderate (q15 min suicide checks) Suicide Risk Level Comments: Denies SI but with acute psychosis with paranoia and high psychic distress, but feels safe here and able to safety contract for the unit and will alert staff if he develops any thoughts of SI. 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 Chief Complaint "It just feels like talking brings up negative thoughts". Review of Systems Sleep Information Total Hours of Sleep: 6.5 Sleep Comments: pt on q-15 minute checks Meal Information Percent Meal Consumed - Breakfast: 90 Percent Meal Consumed - Lunch: 0 Percent Meal Consumed - Dinner: 100 Nutrition Comment: Pt. asleep; meal dated, labeled and refrigerated. Subjective Subjective Patient was seen & assessed and interval progress reviewed with treatment team nursing and social work. Continues to have anxiety and depression. Slightly less paranoid yesterday evening. Having intrusive thoughts. Continues to have intermittent ideas of reference. He feels the higher dose of risperidone is helping him think more clearly. Wonders if "I need a lot of medications or only a few, we need to figure this out, I don't know how it will be years from now". Reviewed taking things one day at a time which he agrees with. Notes that he is still struggling "to keep things together". Reviewed that his labwork was normal which he had limited insight into. He has not been requesting his benadryl cream, apparently had forgotten this was available, so will schedule this which he likes the idea of. Physical Exam Psychiatric Orientation: alert and oriented x 3 Apperance: appropriately dressed and + disheveled Eye Contact: + fair eye contact Motor Behavior: no abnormal motor movements; n tremor Speech: normal rate/rhythm/volume of speech Affect: + blunted affect Mood: + depressed mood and + anxious mood Thought Process: + thought blocking, + tangential thought process and + looseness of associations Thought Content: + paranoid, + delusions and + ideas of reference Suicidal Thoughts: denies suicidal thoughts Homicidal Thoughts: denies homicidal thoughts Hallucinations: + auditory hallucinations; no visual hallucinations Cognition: recent memory grossly intact, remote memory grossly intact and language grossly intact; + attention not intact Insight: + impaired insight Judgement: + impaired judgement Vital Signs (Past 24 Hours) Last Vital Signs Temp 36.4 C L 08/14/21 06:47 Pulse 66 08/14/21 06:48 Resp 18 08/14/21 06:47 BP 126/88 08/14/21 06:48 Pulse Ox 99 08/12/21 02:15 Results & Data ([facility]) Laboratory Results Laboratory Results - last 24 hr 08/14/21 08:10 Fasting Glucose 88 Triglycerides 126 Cholesterol 173 LDL Cholesterol, Calc 105 VLDL Cholesterol, Calc 25 HDL Cholesterol 43 Cholesterol/HDL Ratio 4.0 Current Inpatient Medications Current Inpatient Medications: Current Inpatient Medications Acetaminophen (Acetaminophen 325 Mg Tab) 650 mg PO Q4H PRN PRN Reason: Headache or Minor Fever Stop: 09/11/21 04:35 Last Admin: 08/13/21 19:23 Dose: 650 mg Documented by: Al Hydrox/Mg Hydrox/Simethicone (Aluminum/Magnesium Susp 30 Ml Udc) 30 ml PO Q4H PRN PRN Reason: GI Upset Stop: 09/11/21 04:35 Bismuth Subsalicylate (Bismuth Subsalicylate Liqd 236 Ml) 15 ml PO PRN PRN PRN Reason: Loose Stool Stop: 09/11/21 04:35 Fluticasone Propionate (Fluticasone Propionate Na Spr 16 Gm Btl) 2 sprays NA QAM [facility] Stop: 09/12/21 08:59 Last Admin: 08/14/21 08:34 Dose: 2 sprays Documented by: Hydroxyzine HCl (Hydroxyzine Hcl 25 Mg Tab) 50 mg PO HSZ PRN PRN Reason: Insomnia Stop: 09/11/21 04:35 Hydroxyzine HCl (Hydroxyzine Hcl 25 Mg Tab) 25 mg PO Q4H PRN PRN Reason: Anxiety Stop: 09/11/21 04:35 Magnesium Hydroxide (Magnesium Hydroxide Susp 30 Ml Udc) 30 ml PO DAILY PRN PRN Reason: Constipation Stop: 09/11/21 04:35 Miscellaneous (Remove Nicoderm Patch) 1 ea N/A DAILY@59 [facility] Stop: 09/12/21 08:58 Last Admin: 08/14/21 08:34 Dose: 1 ea Documented by: Nicotine (Nicotine 14 Mg/24 Hr Patch) 14 mg TD QAM [facility] Stop: 09/11/21 17:59 Last Admin: 08/14/21 08:44 Dose: 14 mg Documented by: Olanzapine (Olanzapine 10 Mg Tab) 10 mg PO BID PRN PRN Reason: Agitation Stop: 09/11/21 03:35 Risperidone (Risperidone 0.5 Mg Tablet) 0.5 mg PO BID PRN PRN Reason: Anxiety Stop: 09/11/21 13:15 Last Admin: 08/13/21 10:34 Dose: 0.5 mg Documented by: Risperidone (Risperidone 1 Mg Tablet) 1 mg PO BID [facility] Stop: 09/12/21 20:59 Last Admin: 08/14/21 08:34 Dose: 1 mg Documented by: Sodium Chloride (Sodium Chloride 0.65% Na Soln 45 Ml ([place])) 1 - 2 sprays NA PRN PRN PRN Reason: Nasal Dryness/Congestion Stop: 09/11/21 04:35 Zinc Acetate/Diphenhydramine (Diphenhydramine 2%/Zinc 0.1% Cream 28gm Tube) 1 appln EXT BID PRN PRN Reason: Rash Stop: 09/11/21 14:09 Mental Health & Subst Abuse Tx Therapist Name of Therapist: None current - had intake scheduled at [facility] but they cancelled Track Repairer Helper Name of Track Repairer Helper: None Post Discharge Appointments Primary Care Physician Name Of Family Doctor: Shana Schulte Greygita Contact Information Discharge Discharge Address: [address] [place] [address],[place] [id number]
[2021-08-14] MEDS: risperiDONE 0.5 MG TABLET PO PRN (12:12)
[2021-08-14] MEDS: ACETAMINOPHEN 325 MG TAB PO PRN (20:24)
[2021-08-15] MEDS: NICOTINE 14 MG/24 HR PATCH TD SCH (10:18)
[2021-08-15] MEDS: FLUTICASONE PROPIONATE NA SPR 16 GM BTL SCH (10:18)
[2021-08-15] MEDS: risperiDONE 1 MG TABLET PO SCH (10:18)
--- NOTE | 2021-08-15 12:59 | Psychiatric Progress Note ---
Date of Service August 15, 2021 Impression / Recommendations Impression The patient is a 26 year old with a history of substance-induced psychosis, polysubstance use disorder, depression, anxiety and possible BPAD (but no clear hx of documented shannon nor clear periods without substance use) who was admitted for increased paranoia, psychic distress and anxiety in the context of recent oral steroid course and methamphetamine use. Diagnostically consistent with unspecific psychosis most likely substance-induced vs substance-withdrawal psychosis vs steroid-induced effects, no current signs of acute shannon. UDS positive for MDMA which could be from more recent methamphetamine use versus false positive from Wellbutrin. The patient is deemed unstable and requires psychiatric hospitalization for diagnostic clarification, safety and stabilization, medication management and development of further coping skills. 08/15/21: more organized, less paranoid, ongoing rash (probable eczema?) (1) Substance-induced psychotic disorder: (2) Depression: (3) Anxiety: (4) Cannabis use disorder, moderate, dependence: 08/15/21: titrate Risperdal to 1 mg am and 2 mg pm as has been receiving prn 0.5 mg at least once a day since admission, no current EPS but will have Cogentin ready as prn. Hydrocoritzone cream BID and consider hospitalist consult if no improvement. 08/14/21: Continue current medications and tx plan. 08/13/21: Increase risperidone to 1mg BID. Fasting labs ordered for AM. 08/12/21: The patient was admitted to the [facility] ([facility] health unit) on q15 min checks (behavioral with suicide precautions) for safety. The patient will participate in group, recreational, and milieu therapies and will be offered additional individual and family sessions as clinically appropriate. -Hold Wellbutrin given dopaminergic activity -Risperidone 0.5 mg BID with 0.5 mg BID prn for anxiety (previously responded well to 1mg BID) -Benadryl topical cream for rash -Fasting labs in AM for glucose and lipid panel -Hold seroquel to avoid dual antipsychotics Inventory Assets Strengths: employed, willing to seek treatment, sees PCP Needs: additional coping skills, avoidance of substances, medication adjustment, stabilization Suicide Risk Level Suicide Risk Level: Moderate (q15 min suicide checks) Suicide Risk Level Comments: Denies SI but with acute psychosis with paranoia and high psychic distress, but feels safe here and able to safety contract for the unit and will alert staff if he develops any thoughts of SI. 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 Chief Complaint ongoing rash Review of Systems Sleep Information Total Hours of Sleep: 8.25 Sleep Comments: pt on q-15 minute checks Meal Information Percent Meal Consumed - Breakfast: 75 Percent Meal Consumed - Lunch: 100 Percent Meal Consumed - Dinner: 100 Nutrition Comment: Pt. asleep; meal dated, labeled and refrigerated. Subjective Subjective Patient was seen & assessed and interval progress reviewed with treatment team. was on phone with girlfriend for an extended period of time. Hyperverbal and ex pansive mood. States he's overly self-aware and was "way to into" the zodiac signs and their meaning and also triggered by brittnee and morty. Spend extensive amount of session discussing his MJ use which did include wax, concentrated oil. Started to feel more "paranoid about what could be in it" but used a flower from "[employer] martina" anyway. As far as rash, no benefit from benadryl cream, progressively worse over 3 weeks. No evidence of burrows or bug bites on exam (has been in contact with homeless), appears worse on extensor surfaces (knees, elbow, back of knuckles) has a history of stress induced "skin issues", including a rash in [facility] when he was in group home. The rash on forearms does look similar to post covid rashes, reported last COVID was in Apr. Physical Exam Psychiatric Orientation: alert and oriented x 3 Apperance: appropriately dressed Eye Contact: + fair eye contact Motor Behavior: no abnormal motor movements Speech: normal rate/rhythm/volume of speech (but hyperverbal) Mood: + depressed mood Thought Process: + circumstantial thought process Thought Content: + delusions (but decreasing) Suicidal Thoughts: denies suicidal thoughts Homicidal Thoughts: denies homicidal thoughts Hallucinations: no auditory hallucinations (denies but still has racing thoughts at times and nightmares) and no visual hallucinations Cognition: language grossly intact Insight: + impaired insight Judgement: + impaired judgement Vital Signs (Past 24 Hours) Last Vital Signs Temp 36.4 C L 08/15/21 06:47 Pulse 87 08/15/21 06:47 Resp 18 08/15/21 06:47 BP 124/85 08/15/21 06:47 Pulse Ox 99 08/12/21 02:15 Results & Data ([facility]) Current Inpatient Medications Current Inpatient Medications: Current Inpatient Medications Acetaminophen (Acetaminophen 325 Mg Tab) 650 mg PO Q4H PRN PRN Reason: Headache or Minor Fever Stop: 09/11/21 04:35 Last Admin: 08/14/21 20:24 Dose: 650 mg Documented by: Al Hydrox/Mg Hydrox/Simethicone (Aluminum/Magnesium Susp 30 Ml Udc) 30 ml PO Q4H PRN PRN Reason: GI Upset Stop: 09/11/21 04:35 Bismuth Subsalicylate (Bismuth Subsalicylate Liqd 236 Ml) 15 ml PO PRN PRN PRN Reason: Loose Stool Stop: 09/11/21 04:35 Fluticasone Propionate (Fluticasone Propionate Na Spr 16 Gm Btl) 2 sprays NA QAM [facility] Stop: 09/12/21 08:59 Last Admin: 08/15/21 10:18 Dose: 2 sprays Documented by: Hydroxyzine HCl (Hydroxyzine Hcl 25 Mg Tab) 50 mg PO HSZ PRN PRN Reason: Insomnia Stop: 09/11/21 04:35 Hydroxyzine HCl (Hydroxyzine Hcl 25 Mg Tab) 25 mg PO Q4H PRN PRN Reason: Anxiety Stop: 09/11/21 04:35 Magnesium Hydroxide (Magnesium Hydroxide Susp 30 Ml Udc) 30 ml PO DAILY PRN PRN Reason: Constipation Stop: 09/11/21 04:35 Miscellaneous (Remove Nicoderm Patch) 1 ea N/A DAILY@0859 [facility] Stop: 09/12/21 08:58 Last Admin: 08/15/21 10:17 Dose: 1 ea Documented by: Nicotine (Nicotine 14 Mg/24 Hr Patch) 14 mg TD QAM [facility] Stop: 09/11/21 17:59 Last Admin: 08/15/21 10:18 Dose: 14 mg Documented by: Olanzapine (Olanzapine 10 Mg Tab) 10 mg PO BID PRN PRN Reason: Agitation Stop: 09/11/21 03:35 Risperidone (Risperidone 0.5 Mg Tablet) 0.5 mg PO BID PRN PRN Reason: Anxiety Stop: 09/11/21 13:15 Last Admin: 08/14/21 12:12 Dose: 0.5 mg Documented by: Risperidone (Risperidone 1 Mg Tablet) 1 mg PO BID [facility] Stop: 09/12/21 20:59 Last Admin: 08/15/21 10:18 Dose: 1 mg Documented by: Sodium Chloride (Sodium Chloride 0.65% Na Soln 45 Ml ([place])) 1 - 2 sprays NA PRN PRN PRN Reason: Nasal Dryness/Congestion Stop: 09/11/21 04:35 Zinc Acetate/Diphenhydramine (Diphenhydramine 2%/Zinc 0.1% Cream 28gm Tube) 1 appln EXT BID [facility] Stop: 09/13/21 17:14 Last Admin: 08/15/21 10:17 Dose: 1 appln Documented by: Mental Health & Subst Abuse Tx Therapist Name of Therapist: None current - had intake scheduled at [facility] but they ca ncelled Water Treatment Plant Mechanic Name of Water Treatment Plant Mechanic: None Post Discharge Appointments [facility]: [facility] Information Discharge Discharge Address: [address] [place] [address]
[2021-08-15] MEDS: risperiDONE 0.5 MG TABLET PO PRN (13:03)
[2021-08-15] MEDS ORDERED: BENZTROPINE MESYLATE 1 MG TAB PO PRN (13:58)
[2021-08-15] MEDS ORDERED: HYDROCORTISONE 1% CRM 30 GM TUBE EXT PRN (13:59)
[2021-08-15] MEDS: risperiDONE 2 MG TABLET PO SCH (22:18)
[2021-08-16] MEDS: NICOTINE 14 MG/24 HR PATCH TD SCH (10:44)
[2021-08-16] MEDS: FLUTICASONE PROPIONATE NA SPR 16 GM BTL SCH (10:44)
[2021-08-16] MEDS: risperiDONE 1 MG TABLET PO SCH (10:45)
[2021-08-16] MEDS: HYDROCORTISONE 1% CRM 30 GM TUBE EXT PRN (10:46)
--- NOTE | 2021-08-16 11:44 | Psychiatric Progress Note ---
Date of Service August 16, 2021 Impression / Recommendations Impression The patient is a 26 year old with a history of substance-induced psychosis, polysubstance use disorder, depression, anxiety and possible BPAD (but no clear hx of documented shannon nor clear periods without substance use) who was admitted for increased paranoia, psychic distress and anxiety in the context of recent oral steroid course and methamphetamine use. Diagnostically consistent with unspecific psychosis most likely substance-induced vs substance-withdrawal psychosis vs steroid-induced effects, no current signs of acute shannon. UDS positive for MDMA which could be from more recent methamphetamine use versus false positive from Wellbutrin. The patient is deemed unstable and requires psychiatric hospitalization for diagnostic clarification, safety and stabilization, medication management and development of further coping skills. 08/16/21: ongoing improvement, presentation is most consistent with a bipolar episode triggered by substance use. (1) Substance-induced psychotic disorder: (2) Bipolar disorder: (3) Cannabis use disorder, moderate, dependence: 08/15/21: titrate Risperdal to 1 mg am and 2 mg pm as has been receiving prn 0.5 mg at least once a day since admission, no current EPS but will have Cogentin ready as prn. Hydrocoritzone cream BID and consider hospitalist consult if no improvement. 08/14/21: Continue current medications and tx plan. 08/13/21: Increase risperidone to 1mg BID. Fasting labs ordered for AM. 08/12/21: The patient was admitted to the [facility] ([facility]) on q15 min checks (behavioral with suicide precautions) for safety. The patient will participate in group, recreational, and milieu therapies and will be offered additional individual and family sessions as clinically appropriate. -Hold Wellbutrin given dopaminergic activity -Risperidone 0.5 mg BID with 0.5 mg BID prn for anxiety (previously responded well to 1mg BID) -Benadryl topical cream for rash -Fasting labs in AM for glucose and lipid panel -Hold seroquel to avoid dual antipsychotics Inventory Assets Strengths: employed, willing to seek treatment, sees PCP Needs: additional coping skills, avoidance of substances, medication adjustment, stabilization Suicide Risk Level Suicide Risk Level: Moderate (q15 min suicide checks) Suicide Risk Level Comments: Denies SI but with acute psychosis with paranoia and high psychic distress, but feels safe here and able to safety contract for the unit and will alert staff if he develops any thoughts of SI. Risk Factors Assessment Male: Yes : Yes Do You Have Access To A Gun?: No Health Problems: No Mental Health Diagnoses: Yes Substance Use Disorders: Yes Previous Attempt: Yes Previous Psychiatric Hospitalization: Yes Hopelessness: Yes Protective Factors Assessment Employed: Yes ([employer]) Stable Relationships: Yes Interval History Identifying Information STEPHON SMITH is a 26-year-old man who currently lives in [facility] alone, has a history of substance-induced psychosis, cannabis use disorder, BPAD, anxiety, depression, and was admitted on 08/12/21 00:50 on a 201 voluntary commitment for unspecified psychosis. Chief Complaint seen after family meeting with father Review of Systems Sleep Information Total Hours of Sleep: 6.5 Sleep Comments: pt on q-15 minute checks Meal Information Percent Meal Consumed - Breakfast: 75 Percent Meal Consumed - Lunch: 100 Percent Meal Consumed - Dinner: 95 Subjective Subjective Patient was seen & assessed and interval progress reviewed with nursing and social work. Continues to spend alot of time on the phone. He is appropriate with peers. He still had some DFA and received Vistaril prn. Physical Exam Psychiatric Orientation: alert and oriented x 3 Apperance: appropriately dressed Eye Contact: + fair eye contact Motor Behavior: no abnormal motor movements Speech: normal rate/rhythm/volume of speech (but hyperverbal) Mood: + anxious mood Thought Process: + circumstantial thought process Thought Content: + delusions (but decreasing) Suicidal Thoughts: denies suicidal thoughts Homicidal Thoughts: denies homicidal thoughts Hallucinations: no auditory hallucinations (denies but still has racing thoughts at times and nightmares) and no visual hallucinations Cognition: language grossly intact Insight: + impaired insight Judgement: + impaired judgement Vital Signs (Past 24 Hours) Last Vital Signs Temp 36.6 C 08/16/21 06:45 Pulse 77 08/16/21 06:46 Resp 18 08/16/21 06:45 BP 112/76 08/16/21 06:46 Pulse Ox 99 08/12/21 02:15 Results & Data ([facility]) Current Inpatient Medications Current Inpatient Medications: Current Inpatient Medications Acetaminophen (Acetaminophen 325 Mg Tab) 650 mg PO Q4H PRN PRN Reason: Headache or Minor Fever Stop: 09/11/21 04:35 Last Admin: 08/14/21 20:24 Dose: 650 mg Documented by: Al Hydrox/Mg Hydrox/Simethicone (Aluminum/Magnesium Susp 30 Ml Udc) 30 ml PO Q4H PRN PRN Reason: GI Upset Stop: 09/11/21 04:35 Benztropine Mesylate (Benztropine Mesylate 1 Mg Tab) 1 mg PO Q6 PRN PRN Reason: Muscle Spasm Stop: 09/14/21 13:57 Bismuth Subsalicylate (Bismuth Subsalicylate Liqd 236 Ml) 15 ml PO PRN PRN PRN Reason: Loose Stool Stop: 09/11/21 04:35 Fluticasone Propionate (Fluticasone Propionate Na Spr 16 Gm Btl) 2 sprays NA [facility] Stop: 09/12/21 08:59 Last Admin: 08/16/21 10:44 Dose: 2 sprays Documented by: Hydrocortisone (Hydrocortisone 1% Crm 30 Gm Tube) 1 appln EXT BID PRN PRN Reason: Rash Stop: 09/14/21 13:59 Last Admin: 08/16/21 10:46 Dose: 1 appln Documented by: Hydroxyzine HCl (Hydroxyzine Hcl 25 Mg Tab) 50 mg PO HSZ PRN PRN Reason: Insomnia Stop: 09/11/21 04:35 Last Admin: 08/15/21 22:35 Dose: 50 mg Documented by: Hydroxyzine HCl (Hydroxyzine Hcl 25 Mg Tab) 25 mg PO Q4H PRN PRN Reason: Anxiety Stop: 09/11/21 04:35 Magnesium Hydroxide (Magnesium Hydroxide Susp 30 Ml Udc) 30 ml PO DAILY PRN PRN Reason: Constipation Stop: 09/11/21 04:35 Miscellaneous (Remove Nicoderm Patch) 1 ea N/A DAILY@0859 [facility] Stop: 09/12/21 08:58 Last Admin: 08/16/21 10:49 Dose: Not Given Documented by: Nicotine (Nicotine 14 Mg/24 Hr Patch) [facility] Stop: 09/11/21 17:59 Last Admin: 08/16/21 10:44 Dose: 14 mg Documented by: Olanzapine (Olanzapine 10 Mg Tab) 10 mg PO BID PRN PRN Reason: Agitation Stop: 09/11/21 03:35 Risperidone (Risperidone 0.5 Mg Tablet) 0.5 mg PO BID PRN PRN Reason: Anxiety Stop: 09/11/21 13:15 Last Admin: 08/15/21 13:03 Dose: 0.5 mg Documented by: Risperidone (Risperidone 1 Mg Tablet) 1 mg PO QAM MARLENI Stop: 09/15/21 08:59 Last Admin: 08/16/21 10:45 Dose: 1 mg Documented by: Risperidone (Risperidone 2 Mg Tablet) 2 mg PO HS MARLENI Stop: 09/14/21 21:59 Last Admin: 08/15/21 22:18 Dose: 2 mg Documented by: Sodium Chloride (Sodium Chloride 0.65% Na Soln 45 Ml ([place])) 1 - 2 sprays NA PRN PRN PRN Reason: Nasal Dryness/Congestion Stop: 09/11/21 04:35 Mental Health & Subst Abuse Tx Therapist Name of Therapist: None current - had intake scheduled at [facility] but they cancelled Human Resource Manager Name of Human Resource Manager: None Post Discharge Appointments [facility] Care [facility] Information Discharge Discharge Address: [address] [place] [address],[place] [address] (1) Bipolar disorder Active/Remission status: remission status unspecified Qualified Code(s): F31.9 - Bipolar disorder, unspecified
[2021-08-16 14:38] LABS: MDA negative; MDEA negative; MDMA (Ecstasy) Urine, Confirm negative; Marijuana Quant, GCMS Urine 436 ng/mL (<5)
[2021-08-16] MEDS: risperiDONE 2 MG TABLET PO SCH (21:03)
[2021-08-17] MEDS: risperiDONE 1 MG TABLET PO SCH (08:49)
[2021-08-17] MEDS: FLUTICASONE PROPIONATE NA SPR 16 GM BTL SCH (08:49)
[2021-08-17] MEDS: NICOTINE 14 MG/24 HR PATCH TD SCH (08:49)
--- NOTE | 2021-08-17 10:35 | Discharge Summary ---
Date of Service August 17, 2021 History of Present Illness As per Dr. Willoughby on admission: Danny Kirk presents for psychiatric admission after two recent ED visits for worsening anxiety and paranoia. He endorses feeling very overwhelmed, even by small day-to-day decisions, and with high levels of psychic distress including intense anxiety and paranoia. He has been smoking marijuana but denies any significant change in use nor switch to synthetic nor higher THC content strain in recent weeks and has been using marijuana since high school so this is not new. He likes that marijuana helps him with sleep, reducing anxiety, and social anxiety; there is nothing he doesn't like about it except that at times his family has worried about it because "at one point I was an addict". He has been feeling very paranoid and unsafe at his home. Recently some of his friends who are homeless were staying with him and using various substances including methamphetamines. He reports his last use of methamphetamine was about 1.5 weeks ago. He also notes paranoia and fixation on the TV animated show One[employer] and feels this is closely related to his life. States the show seems to be connecting to people in his life and that it reminds him of a time when he watched the show and used acid in the past. Denies any recent acid use. States that he was watched the show a few days ago and a character was talking to the Devil who was selling "cursed items" and they he heard the same voices outside his apartment door "and began to think I was going to get shot". He recently developed a bad rash on his forearms and legs and was seen at urgent care and prescribed a course of oral steroids. When asked about timing confirms that steroid use was about the same time as methamphetamine use and increased paranoia and confusion. Has been intermittently experiencing AH of an old friend and incident of hearing knocking/shoots outside his door. During the interview he asks clarification for the date then notes "oh, today is my birthday then" and "glad I'm here, I feel like I've got major problems in my brain". He describes worsening anxiety with panic attacks, sense of unease, and racing thoughts. He also endorses depression symptoms including tearfulness, hopelessness, helplessness, social isolation, decreased sleep, low energy and decreased appetite. He has been taking seroquel and Wellbutrin which are prescribed by his PCP. Psychiatric ROS notable for hx of self-harm, he endorses hx of shannon but he cannot articulate details about this and difficult to differentiate from periods of substance use. Physical Exam Psychiatric See admission H&P and DOD assessment. Vital Signs (Past 24 Hours) Last Vital Signs Temp 36.4 C L 08/17/21 06:36 Pulse 88 08/17/21 06:37 Resp 16 08/17/21 06:36 BP 106/71 08/17/21 06:37 Pulse Ox 99 08/12/21 02:15 Principal Diagnosis substance induced psychosis Psychiatric Data See daily stay summary. In short, safety was maintained and the patient was cooperative with care. Medication changes included discontinuing Wellbutrin as dopaminergic and switching from Seroquel to Risperdal to better target symptoms and they tolerated this well. A family session was held with his father who was supportive and safety plan was completed prior to discharge. He did take Vistaril prn sleep and Risperdal prn breakthrough anxiety or racing thoughts on a regular basis but was markedly improved from admission. He was more organized, calmer, pleasant and engaged, and no longer expansive. He was able to redirect his thoughts around Arpit and Morty and the Zodiac. He showed increased insight into his condition and need to abstain from substances such as meth but wouldn't "promise forever" on MJ though understood how it and steroids could impact his condition. His full body rash improved significantly with hydrocortisone cream and he will make a follow up with his PCP if fails to resolve over next few days. Day of Discharge Assessment Today the patient voices readiness for discharge. They note improvement in mood and deny thoughts to harm self or others. Thoughts remain organized and they are improved from admission. There is no evidence of psychosis. They agree to take mediations as prescribed and keep follow-up appointments. They are stable for discharge to outpatient level of care. Transition of Care Transition Of Care Record: was reviewed with the patient Advance Directives Advance Directives Information Provided: Yes Advance Directives: No Mental Health Advance Directive: No Advance Directives on File: No Living Will: No Power of Golf Ball Molder: No Advance Directives Reason:: Declines as Mental Health Visit. Suicide Risk Level Suicide Risk Level Comments: low--continues to deny SI, does not require 24 hr monitoring. Risk Factors Assessment Male: Yes : Yes Do You Have Access To A Gun?: No Health Problems: No Mental Health Diagnoses: Yes Substance Use Disorders: Yes Previous Attempt: Yes Previous Psychiatric Hospitalization: Yes Hopelessness: Yes Protective Factors Assessment Employed: Yes ([employer]) Stable Relationships: Yes Tobacco Cessation at Discharge Tobacco Cessation Medication Prescribed at Discharge: Offered & Pt Refused Total Time Total Time Spent: Greater Than 30 Minutes Total Time Includes: Examination of the patient, Discharge Planning and Medication Reconciliation Discharge Data Lab Results 08/11/21 08/11/21 08/11/21 15:33 15:33 15:33 WBC RBC Hgb Hct MCV MCH MCHC RDW Std Deviation RDW Coeff of Raad Plt Count MPV Immature Gran % (Auto) Neut % (Auto) Lymph % (Auto) Potter % (Auto) Eos % (Auto) Baso % (Auto) Neut # (Auto) Lymph # (Auto) Potter # (Auto) Eos # (Auto) Baso # (Auto) Immature Gran # (Auto) Sodium Potassium Chloride Carbon Dioxide Anion Gap BUN Creatinine Est Cr Clr Drug Dosing Est GFR ( Amer) Est GFR (Non-Af Amer) BUN/Creatinine Ratio Glucose Fasting Glucose Calcium Total Bilirubin AST ALT Alkaline Phosphatase Total Protein Albumin Globulin Albumin/Globulin Ratio Triglycerides Cholesterol LDL Cholesterol, Calc VLDL Cholesterol, Calc HDL Cholesterol Cholesterol/HDL Ratio TSH Urine Color Yellow Urine Appearance Clear Urine pH 7.5 Ur Specific [place] 1.010 Urine Protein Negative Urine Glucose (UA) Negative Urine Ketones Negative Urine Blood Negative Urine Nitrite Negative Urine Bilirubin Negative Urine Urobilinogen Negative Ur Leukocyte Esterase Negative Salicylates Urine Opiates Screen Neg Ur Methadone, Qual Neg Acetaminophen Urine Barbiturates Neg Ur Phencyclidine (PCP) Neg U Amphetamin/Meth Scrn Neg MDMA (Ecstasy) Screen Pos H Urine MDEA negative MDMA negative Urine MDMA negative U Benzodiazepines Scrn Neg Ur Cocaine Metabolite Neg U Marijuana (THC) Screen Pos H U Marijuana THC Carboxy 436 H Drug Screen Comment SEE NOTE Ethyl Alcohol mg/dL SARS-CoV-2, RNA, NAAT 08/11/21 08/11/21 08/11/21 16:02 16:02 16:02 WBC 8.45 RBC 4.39 L Hgb 13.3 L Hct 39.4 L MCV 89.7 MCH 30.3 MCHC 33.8 RDW Std Deviation 43.1 RDW Coeff of Raad 13.1 Plt Count 275 MPV 9.5 Immature Gran % (Auto) 0.1 Neut % (Auto) 66.6 Lymph % (Auto) 26.2 Potter % (Auto) 5.8 Eos % (Auto) 1.1 Baso % (Auto) 0.2 Neut # (Auto) 5.63 Lymph # (Auto) 2.21 Potter # (Auto) 0.49 Eos # (Auto) 0.09 Baso # (Auto) 0.02 Immature Gran # (Auto) 0.01 Sodium 140 Potassium 3.8 Chloride 111 H Carbon Dioxide 23 Anion Gap 6 BUN 9 Creatinine 1.11 Est Cr Clr Drug Dosing Not Reportable Est GFR ( Amer) 107.1 Est GFR (Non-Af Amer) 92.4 BUN/Creatinine Ratio 8.1 L Glucose 97 Fasting Glucose Calcium 9.0 Total Bilirubin 0.6 AST 15 ALT 19 Alkaline Phosphatase 56 Total Protein 6.6 Albumin 4.3 Globulin 2.3 L Albumin/Globulin Ratio 1.9 Triglycerides Cholesterol LDL Cholesterol, Calc VLDL Cholesterol, Calc HDL Cholesterol Cholesterol/HDL Ratio TSH 0.398 Urine Color Urine Appearance Urine pH Ur Specific [place] Urine Protein Urine Glucose (UA) Urine Ketones Urine Blood Urine Nitrite Urine Bilirubin Urine Urobilinogen Ur Leukocyte Esterase Salicylates Urine Opiates Screen Ur Methadone, Qual Acetaminophen Urine Barbiturates Ur Phencyclidine (PCP) U Amphetamin/Meth Scrn MDMA (Ecstasy) Screen Urine MDEA MDMA Urine MDMA U Benzodiazepines Scrn Ur Cocaine Metabolite U Marijuana (THC) Screen U Marijuana THC Carboxy Drug Screen Comment Ethyl Alcohol mg/dL SARS-CoV-2, RNA, NAAT 08/11/21 08/11/21 08/11/21 16:02 16:02 22:16 WBC RBC Hgb Hct MCV MCH MCHC RDW Std Deviation RDW Coeff of Raad Plt Count MPV Immature Gran % (Auto) Neut % (Auto) Lymph % (Auto) Potter % (Auto) Eos % (Auto) Baso % (Auto) Neut # (Auto) Lymph # (Auto) Potter # (Auto) Eos # (Auto) Baso # (Auto) Immature Gran # (Auto) Sodium Potassium Chloride Carbon Dioxide Anion Gap BUN Creatinine Est Cr Clr Drug Dosing Est GFR ( Amer) Est GFR (Non-Af Amer) BUN/Creatinine Ratio Glucose Fasting Glucose Calcium Total Bilirubin AST ALT Alkaline Phosphatase Total Protein Albumin Globulin Albumin/Globulin Ratio Triglycerides Cholesterol LDL Cholesterol, Calc VLDL Cholesterol, Calc HDL Cholesterol Cholesterol/HDL Ratio TSH Urine Color Urine Appearance Urine pH Ur Specific [place] Urine Protein Urine Glucose (UA) Urine Ketones Urine Blood Urine Nitrite Urine Bilirubin Urine Urobilinogen Ur Leukocyte Esterase Salicylates < 3.0 L Urine Opiates Screen Ur Methadone, Qual Acetaminophen < 3 L Urine Barbiturates Ur Phencyclidine (PCP) U Amphetamin/Meth Scrn MDMA (Ecstasy) Screen Urine MDEA MDMA Urine MDMA U Benzodiazepines Scrn Ur Cocaine Metabolite U Marijuana (THC) Screen U Marijuana THC Carboxy Drug Screen Comment Ethyl Alcohol mg/dL < 10.0 SARS-CoV-2, RNA, NAAT NEGATIVE 08/14/21 08:10 WBC RBC Hgb Hct MCV MCH MCHC RDW Std Deviation RDW Coeff of Raad Plt Count MPV Immature Gran % (Auto) Neut % (Auto) Lymph % (Auto) Potter % (Auto) Eos % (Auto) Baso % (Auto) Neut # (Auto) Lymph # (Auto) Potter # (Auto) Eos # (Auto) Baso # (Auto) Immature Gran # (Auto) Sodium Potassium Chloride Carbon Dioxide Anion Gap BUN Creatinine Est Cr Clr Drug Dosing Est GFR ( Amer) Est GFR (Non-Af Amer) BUN/Creatinine Ratio Glucose Fasting Glucose 88 Calcium Total Bilirubin AST ALT Alkaline Phosphatase Total Protein Albumin Globulin Albumin/Globulin Ratio Triglycerides 126 Cholesterol 173 LDL Cholesterol, Calc 105 VLDL Cholesterol, Calc 25 HDL Cholesterol 43 Cholesterol/HDL Ratio 4.0 TSH Urine Color Urine Appearance Urine pH Ur Specific [place] Urine Protein Urine Glucose (UA) Urine Ketones Urine Blood Urine Nitrite Urine Bilirubin Urine Urobilinogen Ur Leukocyte Esterase Salicylates Urine Opiates Screen Ur Methadone, Qual Acetaminophen Urine Barbiturates Ur Phencyclidine (PCP) U Amphetamin/Meth Scrn MDMA (Ecstasy) Screen Urine MDEA MDMA Urine MDMA U Benzodiazepines Scrn Ur Cocaine Metabolite U Marijuana (THC) Screen U Marijuana THC Carboxy Drug Screen Comment Ethyl Alcohol mg/dL SARS-CoV-2, RNA, NAAT Hospital Course (1) Substance-induced psychotic disorder: (2) Bipolar disorder: (3) Cannabis use disorder, moderate, dependence: 08/15/21: titrate Risperdal to 1 mg am and 2 mg pm as has been receiving prn 0.5 mg at least once a day since admission, no current EPS but will have Cogentin ready as prn. Hydrocoritzone cream BID and consider hospitalist consult if no improvement. 08/14/21: Continue current medications and tx plan. 08/13/21: Increase risperidone to 1mg BID. Fasting labs ordered for AM. 08/12/21: The patient was admitted to the [facility] ([facility] mental health unit) on q15 min checks (behavioral with suicide precautions) for safety. The patient will participate in group, recreational, and milieu therapies and will be offered additional individual and family sessions as clinically appropriate. -Hold Wellbutrin given dopaminergic activity -Risperidone 0.5 mg BID with 0.5 mg BID prn for anxiety (previously responded well to 1mg BID) -Benadryl topical cream for rash -Fasting labs in AM for glucose and lipid panel -Hold seroquel to avoid dual antipsychotics Mental Health & Subst Abuse Tx Psychiatrist Psychiatric Appointment Comment: [address] [place] [address] Therapist Name of Therapist: [facility] Therapist's Therapy Appointment Comment: [address] [place] [address] Clinical Statistics Manager Name of Clinical Statistics Manager: None Post Discharge Appointments Primary Care Physician Name Of Family Doctor: Guera Fields- Jena [facility] Date of Appointment with PCP: 08/20/21 Time of Appointment with PCP: 11:05am Provider Appointment Comment: [address] [place] Smoking Cessation Counseling Tobacco Cessation Medication Prescribed at Discharge: Offered & Pt Refused Contact Information Discharge Discharge Address: [address] [place] [id number] Discharge Plan Discharge Items Patient Disposition: Home - Self-Care Reason For Visit: UNSPECIFIED PSYCHOSIS Discharge Diagnosis: substance induced psychotic disorder Condition on Discharge: Good Activity: Resume your previous activity Non-emergency contact: Primary Care Provider, Psychiatrist and Therapist Call non-emergency contact if: you have any medication questions Follow-up/Referrals: Shana Schulte MD [Primary Care Provider] - Diet: Regular Addtl Attending Provider Instructions: SPECIAL CARE INSTRUCTIONS: 1. Follow through with your scheduled aftercare appointments. If unable to keep an appointment, please call to reschedule. 2. Take your medication only as prescribed. Medication should not be changed or stopped without the approval of your doctor. In the event of worsening symptoms or concerns about side effects, contact your doctor immediately. 3. Utilize new healthy coping skills, anger management skills, and stress management skills learned during your hospitalization. Journal feelings and process them with a support person. Identify stressors or situations that may result in relapse, deterioration or inappropriate behaviors and develop a plan to deal with those issues. 4. If your coping skills are ineffective and you are in crisis, contact your outpatient providers for direction. If unable to reach your providers, please call the [facility] CRISIS LINE AT , go to the [facility] walk-in center at [address], [address], [place], or go to the closest Emergency Room. 5. Avoid alcohol and un-prescribed drugs. 6. You have been provided with the Mental Health Advance Directives Pamphlet for your review. 7. Your condition is stable for discharge to outpatient level of care, but recovery is an ongoing process. Ifthoughts to harm yourself or others return, follow the safety plan developed during your stay. Planning for a safe return home includes securing weapons. Our treatment team recommends weaponsbe removed from the home until your outpatient provider reassesses your progress. In rare cases where the items themselvescannot be removed, guns and ammunitionshould be secured separatelyand keys stored by a reliable personoutside of the home. If you were admitted on an involuntary commitment, the police or other legal authorities may be involved in this process. AFTERCARE APPOINTMENTS: * Please call your insurance company prior to your scheduled appointment to confirm your aftercare providers are covered. Take your insurance information to your appointments. WHO TO CALL AND WHEN: Medical Emergencies: For questions or emergencies related to your hospital stay, please contact the Inpatient Behavioral Health Unit at [phone]. A tea leaf reader is on-call 27/09 for the Behavioral Health Unit for emergencies At any time you feel your situation is an emergency, you may also call 911 immediately. Pending Studies at Discharge: No Stand-Alone Forms: [employer] ([employer]), Smoking Cessation Medications and DC Order Prescriptions: New risperidone 2 mg Tablet 2 mg PO HS 30 Days Qty: 30 RF: 0 risperidone 1 mg Tablet 1 mg PO QAM Qty: 45 RF: 0 hydrocortisone 1 % Ointment 1 applic EXT BID PRN (Reason: rash) 14 Days Qty: 28.35 RF: 0 hydroxyzine HCl 25 mg Tablet 50 mg PO HSZ PRN (Reason: sleep) Qty: 14 RF: 0 Continued fluticasone propionate 50 mcg/actuation spray,suspension 2 spray intranasal QAM RF: 0 Discontinued bupropion HCl [Wellbutrin SR] 150 mg tablet sustained-release 12 hr 150 mg PO BID RF: 0 quetiapine 100 mg tablet 100 mg PO HS RF: 0 Discharge Orders: Discharge Order (Routine); Ordered 08/17/21 Ordered By: Fauzia Stratton Admission Data Admit Date/Time: 08/12/21 00:50 Attending Provider: Fauzia Stratton Admit Provider: Abigail Willoughby Primary Care Provider: Shana Schulte Other Interventions: Discharge Summary Assessment (RN) Last Done: 08/17/21 12:16 PSY Interdisciplinary Discharge Planning Last Done: 08/17/21 12:17 Coding Level of Care Code 47413 D/C day mgmt > 30 min Diagnoses Substance-induced psychotic disorder F19.959 Bipolar disorder F31.9 Active/Remission status: remission status unspecified Cannabis use disorder, moderate, dependence F12.20
[2021-08-17] MEDS: risperiDONE 0.5 MG TABLET PO PRN (11:32)
[2021-08-17] MEDS: HYDROCORTISONE 1% CRM 30 GM TUBE EXT PRN (15:02)
== END 2021-08-17 17:10 | disposition home or self-care (01) | DRG 897 ==
LOC: ED 14:50 → SUATTDRO 08-12 00:50 → 3S 08-12 00:50 → ED 08-12 01:27